=== PATIENT | female | born 1945 | race Caucasian/White ===

== ENCOUNTER → 2021-01-18 14:03 | Outpatient (BNVA) | payer MEDICARE, SELFPAY | PROVIDERS: PCP Registered Nurse; Visit Provider Registered Nurse | DX: E11.9 Type 2 diabetes mellitus without complications (principal); E78.5 Hyperlipidemia, unspecified; I10 Essential (primary) hypertension; N39.0 Urinary tract infection, site not specified | CPT/HCPCS: 80053; 80061; 81000; 83036; 85025; 87077; 87086; 87184 ==

== ENCOUNTER → 2021-01-26 10:03 | Outpatient (BNVA) | payer MEDICARE, SELFPAY | PROVIDERS: PCP Registered Nurse; Referring Provider Registered Nurse; Visit Provider Anesthesiology Pain Medicine | DX: G89.29 Other chronic pain (principal); M47.816 Spondylosis without myelopathy or radiculopathy, lumbar region; M51.16 Intervertebral disc disorders with radiculopathy, lumbar region; E11.40 Type 2 diabetes mellitus with diabetic neuropathy, unspecified; Z98.890 Other specified postprocedural states; Z79.891 Long term (current) use of opiate analgesic; Z79.4 Long term (current) use of insulin | CPT/HCPCS: 99204 ==

== ENCOUNTER → 2021-02-03 15:17 | Outpatient (BNVA) | payer MEDICARE, SELFPAY | PROVIDERS: PCP Registered Nurse; Visit Provider Registered Nurse | DX: E11.9 Type 2 diabetes mellitus without complications (principal); Z79.4 Long term (current) use of insulin | CPT/HCPCS: 36416; 82962 ==

== ENCOUNTER 2021-02-09 | Outpatient (CLI) | payer MEDICARE, SELFPAY | END 2021-02-09 00:01 | disposition home or self-care (01) | LOC: RADSHAW 10-11 08:55 | PROVIDERS: PCP Registered Nurse; Visit Provider Anesthesiology Pain Medicine | DX: I48.20 Chronic atrial fibrillation, unspecified (principal) | CPT/HCPCS: 85610 ==

== ENCOUNTER → 2021-02-22 11:43 | Outpatient (BNVA) | payer MEDICARE, SELFPAY | PROVIDERS: PCP Registered Nurse; Visit Provider Registered Nurse | DX: R60.0 Localized edema (principal); I10 Essential (primary) hypertension | CPT/HCPCS: 80053; 83880; 85025 ==

== ENCOUNTER → 2021-02-23 10:37 | Outpatient (BNVA) | payer MEDICARE, SELFPAY | PROVIDERS: PCP Registered Nurse; Visit Provider Anesthesiology Pain Medicine | DX: G89.29 Other chronic pain (principal); M47.816 Spondylosis without myelopathy or radiculopathy, lumbar region; M51.16 Intervertebral disc disorders with radiculopathy, lumbar region; E11.40 Type 2 diabetes mellitus with diabetic neuropathy, unspecified; M79.604 Pain in right leg; M79.605 Pain in left leg; Z98.890 Other specified postprocedural states; Z79.891 Long term (current) use of opiate analgesic; Z87.891 Personal history of nicotine dependence; Z79.4 Long term (current) use of insulin | CPT/HCPCS: 99215 ==

== ENCOUNTER 2021-02-23 12:45 | Outpatient (CLI) | payer MEDICARE, SELFPAY ==
--- NOTE | 2021-02-23 12:50 | XR_ITS ---
WS: [id number] LUMBAR SPINE TECHNIQUE: 5 views of the lumbar spine CLINICAL INFORMATION: M47.816 - Spondylosis without myelopathy or radiculopathy... COMPARISON: None. FINDINGS: Lumbar curve convex left. Advanced spondylitic changes lumbar spine. Osteopenia. Disc space narrowing worse at L2-3 L3-L4 L4-5 and L5-S1. Anterior hypertrophic changes in the lumbar spine. Aor tic calcification. Moderate facet arthropathy in the lower lumbar spine. No acute appearing compressi on fractures. Degenerative endplate-type sclerosis at L3-4. No instability on flexion-extension. Post operative changes in the left abdomen. XR/XR lumbar spine min 4V [id number] IMPRESSION: 1. No instability on flexion-extension. 2. Lumbar curve convex left with advanced spondylitic changes. 3. Advanced disc space narrowing throughout the lumbar spine worse at L2-3 L3- 4 L4-5 and L5-S1 with vacuum disc phenomenon. 4. No acute compression fractures.
== END 2021-02-23 12:46 | disposition home or self-care (01) ==
PROVIDERS: PCP Registered Nurse; Visit Provider Anesthesiology Pain Medicine
DX: M47.816 Spondylosis without myelopathy or radiculopathy, lumbar region (principal); G89.29 Other chronic pain; M51.16 Intervertebral disc disorders with radiculopathy, lumbar region; E11.40 Type 2 diabetes mellitus with diabetic neuropathy, unspecified; M79.604 Pain in right leg; M79.605 Pain in left leg; Z98.890 Other specified postprocedural states; Z79.891 Long term (current) use of opiate analgesic; Z87.891 Personal history of nicotine dependence; Z79.4 Long term (current) use of insulin
CPT/HCPCS: 72110; 99215

== ENCOUNTER → 2021-03-21 09:20 | Outpatient (BNVA) | payer MEDICARE, SELFPAY | PROVIDERS: PCP Registered Nurse; Visit Provider Registered Nurse | DX: E87.6 Hypokalemia (principal); R60.0 Localized edema; E11.9 Type 2 diabetes mellitus without complications; Z79.4 Long term (current) use of insulin | CPT/HCPCS: 80048 ==

== ENCOUNTER → 2021-03-23 11:05 | Outpatient (BNVA) | payer MEDICARE, SELFPAY | PROVIDERS: PCP Registered Nurse; Visit Provider Anesthesiology Pain Medicine | DX: G89.29 Other chronic pain (principal); M51.16 Intervertebral disc disorders with radiculopathy, lumbar region; M47.816 Spondylosis without myelopathy or radiculopathy, lumbar region; M79.604 Pain in right leg; M79.605 Pain in left leg; Z98.890 Other specified postprocedural states; E11.40 Type 2 diabetes mellitus with diabetic neuropathy, unspecified; Z79.891 Long term (current) use of opiate analgesic; Z87.891 Personal history of nicotine dependence; Z79.4 Long term (current) use of insulin | CPT/HCPCS: 99214 ==

== ENCOUNTER → 2021-05-24 00:01 | Outpatient (BNVA) | payer MEDICARE, SELFPAY | PROVIDERS: PCP Registered Nurse; Visit Provider Registered Nurse | DX: E11.9 Type 2 diabetes mellitus without complications (principal); J44.9 Chronic obstructive pulmonary disease, unspecified; Z79.4 Long term (current) use of insulin; R60.0 Localized edema; I11.0 Hypertensive heart disease with heart failure; I50.9 Heart failure, unspecified; J01.40 Acute pansinusitis, unspecified | CPT/HCPCS: 80053; 83036; 83880; 85025 ==

== ENCOUNTER → 2021-05-25 09:54 | Outpatient (BNVA) | payer MEDICARE, SELFPAY | PROVIDERS: PCP Registered Nurse; Visit Provider Anesthesiology Pain Medicine | DX: G89.29 Other chronic pain (principal); M51.16 Intervertebral disc disorders with radiculopathy, lumbar region; M47.816 Spondylosis without myelopathy or radiculopathy, lumbar region; E11.40 Type 2 diabetes mellitus with diabetic neuropathy, unspecified; Z98.890 Other specified postprocedural states; Z87.891 Personal history of nicotine dependence; Z79.891 Long term (current) use of opiate analgesic | CPT/HCPCS: 99214 ==

== ENCOUNTER → 2021-06-15 13:23 | Outpatient (BNVA) | payer MEDICARE, SELFPAY | PROVIDERS: PCP Registered Nurse; Visit Provider Anesthesiology Pain Medicine | DX: G89.29 Other chronic pain (principal); M54.16 Radiculopathy, lumbar region; Z79.891 Long term (current) use of opiate analgesic | CPT/HCPCS: 36416; 64483; 64484; 82962; J1100; J3490 ==

== ENCOUNTER → 2021-07-04 11:21 | Outpatient (BNVA) | payer MEDICARE, SELFPAY | PROVIDERS: PCP Registered Nurse; Visit Provider Anesthesiology Pain Medicine | DX: G89.29 Other chronic pain (principal); M51.16 Intervertebral disc disorders with radiculopathy, lumbar region; M47.816 Spondylosis without myelopathy or radiculopathy, lumbar region; E11.40 Type 2 diabetes mellitus with diabetic neuropathy, unspecified; Z98.890 Other specified postprocedural states; Z79.891 Long term (current) use of opiate analgesic; Z79.4 Long term (current) use of insulin; Z87.891 Personal history of nicotine dependence | CPT/HCPCS: 99214 ==

== ENCOUNTER 2021-07-05 18:38 | Inpatient (IN) | payer MEDICARE, SELFPAY ==
[2021-07-05] VITALS (7 sets, daily range): BP systolic 145–156; BP diastolic 62–90; PULSE 63–78; RESP 16–17; TEMP 36.8; O2SAT 94–98; BMI 32.1
--- NOTE | 2021-07-05 19:02 | CTR_ITS ---
PROCEDURE INFORMATION: Exam: CT Lumbar Spine Without Contrast Exam date and time: 07/05/2021 7:16 PM Age: 75 years old Clinical indication: Injury or trauma; Fall; Blunt trauma (contusions or hematomas); Prior surgery TECHNIQUE: Imaging protocol: Computed tomography images of the lumbar spine without contrast. Radiation optimization: All CT scans at this facility use at least one of these dose optimization techniques: automated exposure control; mA and/or kV adjustment per patient size (includes targeted exams where dose is matched to clinical indication); or iterative reconstruction. COMPARISON: CR XR lumbar spine min 4V [id number] 02/23/2021 1:07 PM RADIATION DOSE METRICS: Total DLP (mGy-cm): 2331.97 FINDINGS: Vertebrae: No acute fracture. Normal alignment. The lumbar spine demonstrates marked discogenic and apophyseal joint degenerative changes at multiple levels. Straightening of natural lordosis. Kidneys and ureters: Combination of simple and non simple bilateral renal cortical lesions which could represent cysts of variable density, however incomplete characterization without contrast. Vasculature: Scattered atherosclerosis. No aneurysm. Large focal calcified plaque of the left common iliac artery origin with severe stenosis of the artery greater than 90%. Soft tissues: Unremarkable. CT/CT lumbar spine wo con* [id number] IMPRESSION: 1. Negative for acute lumbar spine fracture. 2. Multiple bilateral renal cortical lesions of variable density. Some lesions are non simple in appearance. Recommend follow-up outpatient renal ultrasound for surveillance. COMMENTS: Consistent with the [employer]'s Incidental Findings Committee white paper (J Am Jack Radiol 2018): Any incidental renal lesion less than 1 cm or classified as too small to characterize, or any incidental cystic renal lesion characterized as simple-appearing, is likely benign. No follow-up imaging is recommended for these lesions per consensus recommendations based on imaging criteria.
--- NOTE | 2021-07-05 19:30 | XRR_ITS ---
PROCEDURE INFORMATION: Exam: XR Right Knee Exam date and time: 07/05/2021 6:52 PM Age: 75 years old Clinical indication: Injury or trauma; Fall; Blunt trauma; Knee; Right TECHNIQUE: Imaging protocol: XR Right knee. Views: 3 views. COMPARISON: No relevant prior studies available. FINDINGS: Bones/joints: Negative for acute fracture. Unremarkable joint space alignment. Small joint effusion. Marginal osteophytes in each compartment. Moderate severity diffuse joint space narrowing. Soft tissues: Normal. XR/XR knee RT 3V* [id number] IMPRESSION: Negative for acute fracture.
--- NOTE | 2021-07-05 19:30 | XRR_ITS ---
PROCEDURE INFORMATION: Exam: XR Left Ankle Exam date and time: 07/05/2021 6:45 PM Age: 75 years old Clinical indication: Injury or trauma; Fall; Blunt trauma; Ankle; Left TECHNIQUE: Imaging protocol: XR Left ankle. Views: 3 or more views. COMPARISON: No relevant prior studies available. FINDINGS: Bones/joints: Mildly displaced fracture lucency of the distal fibula epiphysis. Ankle mortise alignment is unremarkable. Bones are generally demineralized. Osteophytes between tarsal bones. Insertional enthesophyte on the plantar surface of the calcaneus. Soft tissues: Diffuse soft tissue swelling. XR/XR ankle LT min 3V* [id number] IMPRESSION: Small acute fracture of the distal fibula epiphysis.
--- NOTE | 2021-07-05 19:30 | XRR_ITS ---
PROCEDURE INFORMATION: Exam: XR Right Ankle Exam date and time: 07/05/2021 6:54 PM Age: 75 years old Clinical indication: Injury or trauma; Fall; Blunt trauma; Ankle; Right TECHNIQUE: Imaging protocol: XR Right ankle. Views: 3 or more views. COMPARISON: CR (LOW EXM, ) 07/05/2021 6:52 PM FINDINGS: Bones/joints: Bones are demineralized. Moderately displaced medial malleolus fracture of the distal tibia. Ankle mortise alignment is unremarkable. Tibiofibular syndesmotic alignment is unremarkable. Osteophytes between tarsal bones apparent on the dorsal side of the midfoot. Difficult to confidently exclude posterior malleolus fracture of distal tibia as well. Subtle oblique lucency crossing distal fibula diaphysis; fracture cannot be excluded. Insertional enthesophyte of plantar calcaneus. Soft tissues: Diffuse soft tissue swelling. Vasculature: Diffuse atherosclerosis. XR/XR ankle RT min 3V* [id number] IMPRESSION: Definite acute fracture in the medial malleolus of the tibia. Posterior malleolus fracture of tibia and distal fibula diaphyseal fracture cannot be excluded. Recommend CT scan correlation.
--- NOTE | 2021-07-05 19:30 | XRR_ITS ---
PROCEDURE INFORMATION: Exam: XR Left Knee Exam date and time: 07/05/2021 6:47 PM Age: 75 years old Clinical indication: Injury or trauma; Fall; Blunt trauma; Knee; Left TECHNIQUE: Imaging protocol: XR Left knee. Views: 3 views. COMPARISON: CR (LOW EXM, ) 07/05/2021 6:45 PM FINDINGS: Bones/joints: Negative for acute fracture. Unremarkable joint space alignment. Negative for joint effusion. Osteophytes at the margins of each compartment. Mild to moderate severity joint space narrowing. Calcifications of the menisci. Soft tissues: Normal. XR/XR knee LT 3V* [id number] IMPRESSION: No acute abnormality.
--- NOTE | 2021-07-05 19:30 | XRR_ITS ---
PROCEDURE INFORMATION: Exam: XR Pelvis Exam date and time: 07/05/2021 6:50 PM Age: 75 years old Clinical indication: Injury or trauma; Fall; Blunt trauma (contusions or hematomas); Bilateral; Pelvic region TECHNIQUE: Imaging protocol: XR pelvis. Views: 1 or 2 view. COMPARISON: CR XR lumbar spine min 4V [id number] 02/23/2021 1:07 PM FINDINGS: Bones/joints: Joint space narrowing of the hips. Marginal osteophytes of acetabular roofs. No fractures. Unremarkable osseous alignment. Soft tissues: Unremarkable. XR/XR pelvis 1-2V* [id number] IMPRESSION: Negative pelvis. No acute fracture.
[2021-07-05 19:52] LABS: Basophils # 0.1 10^3/uL (0.0-0.1); Basophils % 1.1 %; Eosinophils # 0.2 10^3/uL (0.0-0.8); Eosinophils % 2.7 %; Hematocrit 38.7 % (37.0-47.0); Hemoglobin 12.4 g/dL (11.5-15.3); Lymphocytes # 1.2 10^3/uL (0.8-4.8); Lymphocytes % 19.3 %; Mean Corpuscular Hemoglobin 28.8 pg (28.0-34.0); Mean Platelet Volume 10.3 fL (7.4-10.4); Monocytes # 0.9 10^3/uL (0.2-0.9); Monocytes % 13.7 %; Neutrophils # 3.95 10^3/uL (1.8-7.7); Nucleated Red Blood Cells % 0 %; Platelet Count 204 10^3/cmm (130-400); Red Cell Distribution Width 14.1 % (12.1-15.1); White Blood Count 6.3 10^3/uL (4.0-10.0)
[2021-07-05 20:06] LABS: INR 1.17 (0.8-1.2)
[2021-07-05] MEDS: ondansetron 2 mg/ML SDV 2 mL 4 MG IVP ×2 (20:07→22:02)
[2021-07-05] MEDS: morphine 4 mg/mL SDV 1 mL IVP ×2 (20:07→22:02)
--- NOTE | 2021-07-05 20:23 | ED_ITS ---
HPI - Fall General: Chief Complaint: Fall Stated Complaint: BILAT KNEE & ANKLE PAIN POST FALL, DIZZY Time Seen by Provider: 07/05/21 18:54 Source: patient and EMS Mode of arrival: EMS Limitations: no limitations History of Present Illness: 75-year-old female who states that she tripped and fell backwards twisting both of her ankles and knees when she fell. She has bilateral knee and ankle pain. She states pain her ankles are 8 out of 10. She does have chronic back pain does have pain currently but it feels like her chronic back pain denies any her head denies any other injuries. Associated symptoms-after fall: Denies abdominal pain, chest pain, headache(s) or neck pain Review of Systems Const: Denies: fever(s), chills, body aches or change in appetite Eyes: Denies: blurry vision or eye discomfort ENMT: Denies: throat pain or dental pain Card: Denies: chest pain Resp: Denies: dyspnea GI: Denies: abdominal pain, nausea, vomiting or diarrhea : Denies: dysuria Musc: Reports: extremity pain; Denies: neck pain or back pain Skin/Breast: Denies: rash Neuro: Denies: headache(s) Psych: Denies: depression Quique/Lymph: Denies: easy bruising All/Imm: Denies: urticaria PFSH ED PFSH: Medical History Afib Anxiety Asthma Chronic lower back pain COPD (chronic obstructive pulmonary disease) Diabetes type 2, controlled Diabetic neuropathy GERD (gastroesophageal reflux disease) Heart failure History of foot drop Hyperlipidemia Surgical History History of back surgery History of hysterectomy History of tubal ligation Family History Father Hypertension Cancer Diabetes Social History Smoking and tobacco status: former smoker Alcohol intake: never Adopted: No Caregiver/support person: No Lives independently: No Household members: family service: No Current occupational status: retired and disabled History of recent travel: No Current gender identity: Female Physical Exam Const: COMMON NORMALS: no acute distress, patient oriented x3 and healthy appearing HENMT: COMMON NORMALS: normocephalic and atraumatic HEAD & SCALP: normoc ephalic and atraumatic Eye: COMMON NORMALS: Equal, round and reactive pupils present and EOMs intact bilaterally PUPIL: Yes Equal, round and reactive pupils present Neck/C-Spine: COMMON NORMALS: full ROM and supple Chest: COMMONS NORMALS: normal inspection of the chest and normal palpation of entire chest wall Resp: COMMON NORMALS: normal respiratory effort, No retractions, No use of accessory muscles and clear to auscultation bilaterally AUSCULTATION: clear to auscultation bilaterally Cardio: COMMON NORMALS: regular rate, regular rhythm and No murmurs present (Cardio) RATE: regular rate RHYTHM: regular rhythm GI: COMMON NORMALS: Normal to inspection, nondistended, normoactive bowel sounds present, Soft to palpation, non-tender and no masses PALPATION: Yes Soft to palpation Extremity: COMMON NORMALS: full ROM NARRATIVE EXTREMITY EXAM: Tenderness to bilateral ankles slight tenderness to the bilateral knees distal pulses intact Neuro: COMMON NORMALS: patient oriented x3, moves all extremities and no focal motor deficits Psych: COMMON NORMALS: mental status grossly normal, Normal thought process present and cooperative THOUGHT PROCESS: Normal thought process present Skin: COMMON NORMALS: no rashes or lesions noted and no wounds GENERAL SKIN EXAM: no rashes or lesions noted Course Vital Signs: Vital signs: Vital Signs Temperature 98.2 F 07/05/21 18:48 Pulse Rate 78 07/05/21 21:44 Respiratory Rate 17 07/05/21 22:02 Blood Pressure 156/90 07/05/21 21:44 Pulse Oximetry 96 07/05/21 22:02 MDM - Fall Medical Decision Making Patient presents here with bilateral ankle fractures from a fall. She does live at home does not have anyone that can help take care of her at this time will admit as she is not good to be able to ambulate and spoke to the hospitalist along with orthopedics. Lab Data : 07/05/21 19:40 07/05/21 19:40 Radiology Impressions Lumbar Spine CT 07/05/21 19:02 IMPRESSION: 1. Negative for acute lumbar spine fracture. 2. Multiple bilateral renal cortical lesions of variable density. Some lesions are non simple in appearance. Recommend follow-up outpatient renal ultrasound for surveillance. COMMENTS: Consistent with the [employer]'s Incidental Findings Committee white paper (J Am Jack Radiol 2018): Any incidental renal lesion less than 1 cm or classified as too small to characterize, or any incidental cystic renal lesion characterized as simple-appearing, is likely benign. No follow-up imaging is recommended for these lesions per consensus recommendations based on imaging criteria. Ankle X-Ray 07/05/21 19:30 IMPRESSION: Definite acute fracture in the medial malleolus of the tibia. Posterior malleolus fracture of tibia and distal fibula diaphyseal fracture cannot be excluded. Recommend CT scan correlation. Knee X-Ray 07/05/21 19:30 IMPRESSION: Negative for acute fracture. Pelvis X-Ray 07/05/21 19:30 IMPRESSION: Negative pelvis. No acute fracture. Laboratory Results WBC 6.3 10^3/uL (4.0-10.0) 07/05/21 19:40 RBC 4.30 10^6/uL (4.1-5.3) 07/05/21 19:40 Hgb 12.4 g/dL (11.5-15.3) 07/05/21 19:40 Hct 38.7 % (37.0-47.0) 07/05/21 19:40 MCV 90.0 fl (81-99) 07/05/21 19:40 MCH 28.8 pg (28.0-34.0) 07/05/21 19:40 MCHC 32.0 g/dL (30.0-36.0) 07/05/21 19:40 RDW 14.1 % (12.1-15.1) 07/05/21 19:40 Plt Count 204 10^3/cmm (130-400) 07/05/21 19:40 MPV 10.3 fL (7.4-10.4) 07/05/21 19:40 Neut % (Auto) 63.0 % 07/05/21 19:40 Lymph % (Auto) 19.3 % 07/05/21 19:40 [place] % (Auto) 13.7 % 07/05/21 19:40 Eos % (Auto) 2.7 % 07/05/21 19:40 Baso % (Auto) 1.1 % 07/05/21 19:40 Neut # (Auto) 3.95 10^3/uL (1.8-7.7) 07/05/21 19:40 Lymph # (Auto) 1.2 10^3/uL (0.8-4.8) 07/05/21 19:40 [place] # (Auto) 0.9 10^3/uL (0.2-0.9) 07/05/21 19:40 Eos # (Auto) 0.2 10^3/uL (0.0-0.8) 07/05/21 19:40 Baso # (Auto) 0.1 10^3/uL (0.0-0.1) 07/05/21 19:40 Nucleated RBC % (auto) 0 % 07/05/21 19:40 Nucleated RBCs # 0.0 /100WBC 07/05/21 19:40 PT 15.30 SECONDS (12.1-14.9) H 07/05/21 19:40 INR 1.17 (0.8-1.2) 07/05/21 19:40 Sodium 141 mmol/L (136-145) 07/05/21 19:40 Potassium 4.2 mmol/L (3.5-5.1) 07/05/21 19:40 Chloride 103 mmol/L (98-107) 07/05/21 19:40 Carbon Dioxide 28 mmol/L (22-29) 07/05/21 19:40 Anion Gap 14.2 (5-19) 07/05/21 19:40 BUN 17 mg/dL (8-23) 07/05/21 19:40 Creatinine 1.0 mg/dL (0.5-0.9) H 07/05/21 19:40 GFR Calculation Not Reportable 07/05/21 19:40 Glucose 118 mg/dL (65-115) H 07/05/21 19:40 Calculated Osmolality 295 mOsm/kg (285-295) 07/05/21 19:40 Calcium 9.6 mg/dL (8.5-10.5) 07/05/21 19:40 Total Bilirubin 0.3 mg/dL (0.15-1.2) 07/05/21 19:40 AST 21 U/L (0-32) 07/05/21 19:40 ALT 18 U/L (0-33) 07/05/21 19:40 Alkaline Phosphatase 52 IU/L (35-105) 07/05/21 19:40 Total Protein 7.1 g/dL (6.6-8.7) 07/05/21 19:40 Albumin 4.1 g/dL (3.5-5.2) 07/05/21 19:40 Globulin 3.0 g/dL (1.3-4.6) 07/05/21 19:40 Discharge Plan Discharge Patient Disposition: Admitted As Inpatient Clinical Impression: Fall Qualifiers: Encounter type: initial encounter Qualified Code(s): W19.XXXA - Unspecified fall, initial encounter Bilateral ankle fractures Qualifiers: Encounter type: initial encounter Fracture type: closed Qualified Code(s): S82.891A - Other fracture of right lower leg, initial encounter for closed fracture Condition: Stable Coding Level of Care Code ED Mail [employer] Markup Clerk for Vera Kwok
[2021-07-05 20:40] LABS: Alanine Aminotransferase 18 U/L (0-33); Albumin Level 4.1 g/dL (3.5-5.2); Alkaline Phosphatase 52 IU/L (35-105); Anion Gap 14.2 (5-19); Aspartate Amino Transferase 21 U/L (0-32); Blood Urea Nitrogen 17 mg/dL (8-23); Calcium 9.6 mg/dL (8.5-10.5); Carbon Dioxide 28 mmol/L (22-29); Chloride 103 mmol/L (98-107); Glucose 118 mg/dL (65-115); Osmolality Calculated 295 mOsm/kg (285-295); Potassium 4.2 mmol/L (3.5-5.1); Sodium 141 mmol/L (136-145); Total Bilirubin 0.3 mg/dL (0.15-1.2); Total Protein 7.1 g/dL (6.6-8.7)
[2021-07-05 20:43] LABS: Creatinine Clr Calc Pharmacy 55.8553
--- NOTE | 2021-07-05 21:42 | CTR_ITS ---
PROCEDURE INFORMATION: Exam: CT Right Lower Extremity Without Contrast, Ankle Exam date and time: 07/05/2021 10:44 PM Age: 75 years old Clinical indication: Injury or trauma; Fracture, traumatic; Displaced; Ankle; Right; Not specified; Patient HX: Fall this evening. Fracture seen on xray. ; Additional info: FX TECHNIQUE: Imaging protocol: CT of the Right lower extremity without contrast was performed. Exam focused on the ankle. Radiation optimization: All CT scans at this facility use at least one of these dose optimization techniques: automated exposure control; mA and/or kV adjustment per patient size (includes targeted exams where dose is matched to clinical indication); or iterative reconstruction. COMPARISON: CR (LOW EXM, ) 07/05/2021 6:54 PM RADIATION DOSE METRICS: Total DLP (mGy-cm): 121.72 FINDINGS: Bones/joints: Displaced horizontal medial malleolar fracture. Displaced intra-articular fracture involving the lateral aspect of the tibial plafond. Hairline nondisplaced intra-articular fracture of the posterior malleolus. Dorsal talonavicular osteophyte formation consistent with primary osteoarthritis. Calcaneal spur. Soft tissues: Normal. Vasculature: Moderate calcified peripheral vascular disease. CT/CT ankle RT wo con* [id number] IMPRESSION: 1. Displaced horizontal medial malleolar fracture. 2. Displaced intra-articular fracture involving the lateral aspect of the tibial plafond. 3. Hairline nondisplaced intra-articular fracture of the posterior malleolus.
--- NOTE | 2021-07-05 22:30 | CTR_ITS ---
PROCEDURE INFORMATION: Exam: CT Head Without Contrast Exam date and time: 07/05/2021 10:40 PM Age: 75 years old Clinical indication: Patient HX: Dizziness post fall; Additional info: Dizzyness TECHNIQUE: Imaging protocol: Computed tomography of the head without contrast. Radiation optimization: All CT scans at this facility use at least one of these dose optimization techniques: automated exposure control; mA and/or kV adjustment per patient size (includes targeted exams where dose is matched to clinical indication); or iterative reconstruction. COMPARISON: No relevant prior studies available. RADIATION DOSE METRICS: Total DLP (mGy-cm): 901.76 FINDINGS: Brain: There is moderate cerebral atrophy. Negative for acute intracranial hemorrhage. No midline shift of brain. [place] matter and white matter interfaces are preserved. Right thalamus lacunar infarct which is age indeterminate without comparison images. No mass effect on the brain. Cerebral ventricles: No ventriculomegaly. Paranasal sinuses: Left maxillary sinus mucosal thickening without air-fluid levels. Mastoid air cells: Visualized mastoid air cells are well aerated. Bones/joints: Unremarkable. No acute fracture. Soft tissues: Unremarkable. CT/CT head wo con* [id number] IMPRESSION: Negative for acute intracranial hemorrhage.
--- NOTE | 2021-07-05 22:45 | ECG_ITS ---
[facility] Test Date: 2021-07-05 Pat Name: Ana M New Department: Room: Gender: Female Feeder Loader: : [id number] Requested By: Vimal Rosenthal Order Number: [id number] Danial MD: Reyna Quiros M.D. Measurements Intervals [place] Rate: 68 P: 81 [place]: 166 QRS: 43 QRSD: 88 T: 48 QT: 401 QTc: 429 Interpretive Statements SINUS RHYTHM WITH OCCASIONAL SUPRAVENTRICULAR PREMATURE COMPLEXES LOW QRS VOLTAGE IN EXTREMITY LEADS [QRS DEFLECTION < 0.5 mV IN LIMB LEADS] No previous ECG available for comparison Electronically Signed On 07-06-2021 19:15:55 CDT by Reyna Quiros M.D. [email or web address]
--- NOTE | 2021-07-05 22:52 | PM.HP ---
Providers/Chief Complaint Primary Care Provider: ALPHONSO Oliver Chief Complaint: BILAT KNEE & ANKLE PAIN POST FALL, DIZZY History of Present Illness Ana M New is a 75 year old female with a past medical history of asthma, history of chronic lower back pain status post laminectomy, history of bilateral extremity edema, history of diastolic CHF, history of hyperlipidemia, history of insulin-dependent type 2 diabetes mellitus, COPD, atrial fibrillation on Eliquis, who presents [facility] for dizziness and fall. Patient tells me that she lives at home, by herself, her family checks up on her regularly, she ambulates with a wheeled walker, this evening she was pushing her wheeled walker, when she suddenly felt dizzy, when she put accidentally pushed her wheel walker too far, it hit the cabinetry about the back, resulting in her falling slightly backwards with her ankles ending up under her back, she was on the floor for about an hour before she could call her son. She was unable to bear weight, had bilateral ankle pain. At [facility] she is found to have bilateral ankle fracture, right more significant requiring surgical intervention, Dr. Castanon has been consulted, hospitalist team was called for admission as she cannot ambulate, she lives at home by herself. Review of Systems Const: Denies: fever(s), chills, fatigue or malaise Eyes: Denies: change in vision ENMT: Denies: nasal congestion Resp: Denies: dyspnea, productive cough, non-productive cough or wheezing GI: Denies: abdominal pain, nausea, vomiting, hematemesis, diarrhea, constipation, hematochezia or melena : Denies: flank pain, dysuria or urinary frequency Musc: Denies: neck pain or back pain Skin/Breast: Denies: rash Neuro: Denies: headache(s), dizziness or vertigo Endo: Denies: polyuria or polydipsia Medications/Allergies Home Medications Medication Instructions Recorded Confirmed Last Taken Type B-complex with vitamin C (Super B 1 tab PO DAILY 01/18/21 07/04/21 Unknown History Complex-Vitamin C) calcium carbonate 600 mg calcium 600 mg PO DAILY 01/18/21 07/04/21 Unknown History (1,500 mg) tablet (Calcium) cholecalciferol (vitamin D3) 125 125 mcg PO DAILY 01/18/21 07/04/21 Unknown History mcg (5,000 unit) capsule diclofenac sodium 1 % topical gel 2 g TOPICAL QID 01/18/21 07/04/21 Unknown History (Arthritis Pain (diclofenac)) insulin human U-100 NPH-regulr See Rx Instructions SUBCUT BID PRN 01/18/21 07/04/21 Unknown History 70-30 mix 100 unit/mL subcutaneous susp (Humulin 70/30 U-100 Insulin) melatonin 5 mg capsule mg PO 01/18/21 07/04/21 Unknown History multivitamin 1 tab PO DAILY 01/18/21 07/04/21 Unknown History psyllium 1 packet PO DAILY ea 01/18/21 07/04/21 Unknown History albuterol sulfate 90 mcg/actuation 2 puff INHALATION Q6H PRN #8.5 g 03/03/21 07/04/21 Unknown Rx aerosol inhaler (ProAir HFA) flash glucose scanning reader #6 ea 03/03/21 07/04/21 Unknown Rx (Transphorm Ericka 14 Day Tiona) fluticasone furoate 100 1 inh INHALATION DAILY #60 ea 03/03/21 07/04/21 Unknown Rx mcg-vilanterol 25 mcg/dose inhalation powder (Breo Ellipta) furosemide 20 mg tablet 10 mg PO QAM 90 Days #45 tab 03/21/21 07/04/21 Unknown Rx amlodipine 10 mg tablet See Rx Instructions .ROUTE 05/02/21 07/04/21 Unknown Rx .COMPLEX #90 tab buspirone 7.5 mg tablet See Rx Instructions .ROUTE 05/02/21 07/04/21 Unknown Rx .COMPLEX #180 tab carvedilol 25 mg tablet See Rx Instructions .ROUTE 05/02/21 07/04/21 Unknown Rx .COMPLEX #180 tab fluoxetine 40 mg capsule See Rx Instructions .ROUTE 05/02/21 07/04/21 Unknown Rx .COMPLEX #90 cap gabapentin 600 mg tablet See Rx Instructions .ROUTE 05/02/21 07/04/21 Unknown Rx .COMPLEX #270 tab hydroxyzine HCl 25 mg tablet See Rx Instructions .ROUTE 05/02/21 07/04/21 Unknown Rx .COMPLEX #180 tab montelukast 10 mg tablet See Rx Instructions .ROUTE 05/02/21 07/04/21 Unknown Rx .COMPLEX #90 tab omeprazole 20 mg capsule,delayed See Rx Instructions .ROUTE 05/02/21 07/04/21 Unknown Rx release .COMPLEX #90 cap rosuvastatin 20 mg tablet See Rx Instructions .ROUTE 05/02/21 07/04/21 Unknown Rx .COMPLEX #90 tab apixaban 5 mg tablet (Eliquis) See Rx Instructions .ROUTE 05/06/21 07/04/21 Unknown Rx .COMPLEX #180 tab flash glucose sensor (FreeStyle See Rx Instructions .ROUTE 05/06/21 07/04/21 Unknown Rx Ericka 14 Day Sensor) .COMPLEX #6 each potassium chloride 20 mEq/15 mL See Rx Instructions .ROUTE 05/06/21 07/04/21 Unknown Rx oral liquid .COMPLEX #473 ml hydrocodone 7.5 mg-acetaminophen 1 tab PO BID PRN 30 Days #60 tab 07/04/21 07/04/21 Unknown Rx 325 mg tablet Allergies Allergy/AdvReac Type Severity Reaction Status Date / Time adhesive tape Allergy Unknown Verified 07/05/21 18:47 amoxicillin Allergy Unknown Verified 07/05/21 18:47 bee venom protein (honey bee) Allergy Unknown Verified 07/05/21 18:47 clavulanic acid Allergy Unknown Verified 07/05/21 18:47 [From Augmentin] maltitol Allergy Unknown Verified 07/05/21 18:47 metformin Allergy Unknown Verified 07/05/21 18:47 ranitidine Allergy Unknown Verified 07/05/21 18:47 sorbitol Allergy Unknown Verified 07/05/21 18:47 PFSH Acute PFSH: Medical History Afib Anxiety Asthma Chronic lower back pain COPD (chronic obstructive pulmonary disease) Diabetes type 2, controlled Diabetic neuropathy GERD (gastroesophageal reflux disease) Heart failure History of foot drop Hyperlipidemia Surgical History History of back surgery History of hysterectomy History of tubal ligation Family History Father Hypertension Cancer Diabetes Social History Smoking and tobacco status: former smoker Alcohol intake: never Adopted: No Caregiver/support person: No Lives independently: No Household members: family service: No Current occupational status: retired and disabled History of recent travel: No Current gender identity: Female Vitals/I&O/Wt Last Vital Signs Temp 98.2 F 07/05/21 18:48 Pulse 78 07/05/21 21:44 Resp 17 07/05/21 22:02 BP 156/90 07/05/21 21:44 Pulse Ox 96 07/05/21 22:02 Weight last 48 hrs Weight 90.265 kg Physical Exam Const: COMMON NORMALS: no acute distress and patient oriented x3 HENMT: COMMON NORMALS: normocephalic HEAD & SCALP: normocephalic Resp: COMMON NORMALS: normal respiratory effort, No retractions, No use of accessory muscles and clear to auscultation bilaterally AUSCULTATION: clear to auscultation bilaterally Cardio: COMMON NORMALS: no JVD, regular rate, regular rhythm, S1 normal heart sound present and S2 normal heart sound present RATE: regular rate RHYTHM: regular rhythm HEART SOUNDS: S1 normal heart sound present and S2 normal heart sound present GI: COMMON NORMALS: Normal to inspection, nondistended, normoactive bowel sounds present, Soft to palpation, non-tender, No hepatosplenomegaly present, no masses and no bruits PALPATION: Yes Soft to palpation and Yes No hepatosplenomegaly present Extremity: NARRATIVE EXTREMITY EXAM: Bilateral extremities casted Neuro: COMMON NORMALS: patient oriented x3 Psych: COMMON NORMALS: mental status grossly normal Data : 07/05/21 19:40 07/05/21 19:40 A&P Assessment and plan (1) Bilateral ankle fractures: Status: Acute Qualifiers: Encounter type: initial encounter Fracture type: closed Qualified Code(s): S82.891A - Other fracture of right lower leg, initial encounter for closed fracture; S82.892A - Other fracture of left lower leg, initial encounter for closed fracture (2) Fall: Status: Acute Qualifiers: Encounter type: initial encounter Qualified Code(s): W19.XXXA - Unspecified fall, initial encounter (3) Pre-syncope: Status: Acute Plan Bilateral ankle fractures -Right ankle Definite acute fracture in the medial malleolus of the tibia. Posterior malleolus fracture of tibia and distal fibula diaphyseal fracture cannot be excluded. -CT ordered -Left ankle Small acute fracture of the distal fibula epiphysis. -Currently casted -Orthopedic service on consult -N.p.o. midnight -Possible surgical intervention tomorrow morning -Pain control morphine -Anticoagulation, Eliquis currently on hold for possible surgical invention Presyncopal symptoms -Serial EKGs, serial troponins, telemetry monitoring -Urine analysis -CT head -Carotid artery ultrasound -Cardiac echo Type 2 diabetes mellitus, low-dose sliding scale Atrial fibrillation, continue Coreg, Eliquis currently on hold Asthma, not in exacerbation COPD not in exacerbation Hyperlipidemia Diastolic CHF, not in exacerbation Attestations Medical Necessity Statement*: Patient requires hospitalization, inpatient, greater than 2 midnights, for presyncope, bilateral ankle fractures Coding Level of Care Code Acute 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
--- NOTE | 2021-07-05 23:01 | USR_ITS ---
PROCEDURE INFORMATION: Exam: US Duplex Bilateral Extracranial Arteries, Carotid Arteries Exam date and time: 07/05/2021 11:14 PM Age: 75 years old Clinical indication: Dizziness; Additional info: Dizzynes TECHNIQUE: Imaging protocol: Real-time Duplex ultrasound scan of the bilateral carotid and vertebral arteries combining ramirez scale, color Doppler and spectral waveform analysis. Bilateral exam. Exam focused on the carotid arteries. COMPARISON: CT head wo con* [id number] 07/05/2021 10:40 PM FINDINGS: Right common carotid artery: Unremarkable. No occlusion or stenosis. Waveforms are normal. Right internal carotid artery: Spectral waveform broadening. No significant peak systolic velocity elevation. Echogenic plaques in the bifurcation. Right ICA/CCA ratio: Within normal limits. Right external carotid artery: No significant stenosis in the origin. Right vertebral artery: Unremarkable. Antegrade flow. Left common carotid artery: Unremarkable. No occlusion or stenosis. Waveforms are normal. Left internal carotid artery: Echogenic plaques throughout the artery. Diffusely elevated peak systolic velocities measuring up to 293 seconds distally. Spectral broadening throughout the artery. Left ICA/CCA ratio: Elevated. Left external carotid artery: No significant stenosis in the origin. Left vertebral artery: Unremarkable. Antegrade flow. US/CV carotid duplex BI* [id number] IMPRESSION: 1. Moderate severity left internal carotid artery stenosis estimated 50-69%, although difficult to characterize secondary to tortuosity. 2. At least mild severity stenosis of proximal right internal carotid artery approaching 50%. 3. Recommend CTA neck correlation. REFERENCES: SRU CRITERIA. The degree of internal carotid artery stenosis is based on criteria defined by the Society of Radiologists in Ultrasound (SRU). Normal is no stenosis. Mild is less than 50% stenosis. Moderate is 50-69% stenosis. Severe is greater than 69% stenosis to near occlusion. Near occlusion is a markedly narrowed lumen. Total occlusion is no detectable patent lumen.
[2021-07-05 23:20] LABS: Troponin(5th) Baseline 20 ng/L (0-10)
[2021-07-05 23:29] LABS: Thyroid Stimulating Hormone 2.08 uIU/mL (0.27-4.20)
[2021-07-06] VITALS (12 sets, daily range): BP systolic 122–144; BP diastolic 41–74; PULSE 68–96; RESP 12–18; TEMP 36.7–37.6; O2SAT 91–98
[2021-07-06 00:12] LABS: Add Urine Microscopic? NO; Charge for UA Resulting for Rev
[2021-07-06] MEDS: acetaminophen 325 mg Tablet 650 MG PO (00:15)
[2021-07-06 00:28] LABS: Urine Appearance Clear (CLEAR); Urine Color Yellow (Yellow); pH Urine 7 (5-7)
[2021-07-06 00:29] LABS: Bilirubin Urine Neg (Negative); Blood Urine Neg (Negative); Glucose Urine UA Norm (Normal); Ketones Urine Negative (Negative); Leukocyte Esterase Urine Negative (Negative); Nitrate Urine Negative (Negative); Protein Urine Neg (Negative); Specific Gravity, Urine 1.005 (1.005-1.030); Urobilinogen Urine Norm (Negative)
[2021-07-06 01:23] LABS: Troponin 5 2HR 19.27 ng/L (0-10)
[2021-07-06 01:27] LABS: Troponin 5 2HR Delta -0.73 ABS# (0-10)
--- NOTE | 2021-07-06 02:47 | USCV_ITS ---
Transthoracic Echo Ana M New Age: 75 Gender: F : 1945 Exam Date: 07/06/2021 02:50 Ordering Phys: Vimal Rosenthal MD Technologist: LIZBETH Exam Location: [facility] Indication: Dizziness BP: / HR: 71 Rhythm: Sinus Technical Quality: Adequate MEASUREMENTS (Male / Female) Normal Values 2D ECHO LV Diastolic Diameter PLAX 3.0 cm 4.2 - 5.9 / 3.9 - 5.3 cm LV Systolic Diameter PLAX 2.0 cm IVS Diastolic Thickness 1.1 cm 0.6 - 1.0 / 0.6 - 0.9 cm IVS Systolic Thickness 1.2 cm LVPW Diastolic Thickness 1.3 cm 0.6 - 1.0 / 0.6 - 0.9 cm LVPW Systolic Thickness 2.0 cm LVOT Diameter 1.6 cm LV Ejection Fraction 2D Teich 61.1 % LV Ejection Fraction MOD 2C 81.2 % LV Ejection Fraction 2C AL 82.0 % LA Diameter 3.9 cm LA Width 4.2 cm LA Height 6.3 cm RA Width 3.2 cm RA Height 4.5 cm Aorta at Sinotubular Diameter 1.8 cm M-MODE Aortic Annulus Diameter 2.4 cm LA Ao Ratio MM 1.5 MV E Point Septal Separation 2.4 cm DOPPLER AV Peak Velocity 147.5 cm/s LVOT Peak Velocity 88.0 cm/s AV Area Cont Eq vti 1.1 cm squared AV Area Cont Eq pk 1.2 cm squared MV Peak Velocity 136.0 cm/s MV Area PHT 3.0 cm squared Mitral E to A Ratio 1.6 MV E' Velocity 73.0 cm/s Mitral E to MV E' Ratio 14.5 Mitral E to LV E' Lateral Ratio 11.4 Mitral E to LV E' Septal Ratio 20.0 TR Peak Velocity 93.5 cm/s TR Peak Gradient 3.5 mmHg TR Mean Velocity 58.3 cm/s TR Mean Gradient 1.9 mmHg TR Velocity Time Integral 18.8 cm Right Atrial Pressure 5.0 mmHg Pulmonary Artery Systolic Pressu 8.5 mmHg PV Peak Velocity 161.0 cm/s RV Acceleration Time 0.1 s RV Ejection Time 0.4 s RV AcT/ET 0.3 FINDINGS Left Ventricle Normal left ventricular size and systolic function, EF 83 %. No regional wall motion abnormalities. Grade III/IV diastolic dysfunction (restrictive filling pattern), severely elevated filling pressures. Right Ventricle The right ventricle is normal in size and function. Right Atrium The right atrium is normal in size. Left Atrium Mildly increased left atrial size. Mitral Valve Thickened mitral valve. Mild mitral annular calcification. Trace to mild mitral valve regurgitation. Aortic Valve Thickened aortic valve. Tricuspid Valve No gross abnormalities noted Pulmonic Valve Pulmonic valve not well visualized. Pericardium Normal pericardium without effusion. Aorta Normal ascending aorta dimension. CONCLUSIONS Normal left ventricular size and systolic function, EF 83 %. No regional wall motion abnormalities. Grade III/IV diastolic dysfunction (restrictive filling pattern), severely elevated filling pressures. Mildly increased left atrial size. Thickened mitral valve. Mild mitral annular calcification. Trace to mild mitral valve regurgitation. Thickened aortic valve. There is no pericardial effusion. There are no intracardiac masses. No previous study is available for comparison. Dr Reyna Quiros MD [facility] (Electronically Signed) Final Date: 06 July 2021 13:57 S
[2021-07-06 05:06] LABS: Basophils # 0.1 10^3/uL (0.0-0.1); Basophils % 0.6 %; Eosinophils # 0.1 10^3/uL (0.0-0.8); Eosinophils % 1.5 %; Hematocrit 34.5 % (37.0-47.0); Hemoglobin 10.8 g/dL (11.5-15.3); Lymphocytes % 13.4 %; Mean Corpuscular HGB Conc 31.3 g/dL (30.0-36.0); Mean Corpuscular Hemoglobin 28.6 pg (28.0-34.0); Mean Corpuscular Volume 91.5 fl (81-99); Mean Platelet Volume 10.8 fL (7.4-10.4); Neutrophils # 5.51 10^3/uL (1.8-7.7); Neutrophils % 71.2 %; Nucleated Red Blood Cells % 0 %; Platelet Count 186 10^3/cmm (130-400); Red Blood Count 3.77 10^6/uL (4.1-5.3); Red Cell Distribution Width 14.1 % (12.1-15.1); White Blood Count 7.8 10^3/uL (4.0-10.0)
[2021-07-06 05:28] LABS: Alanine Aminotransferase 15 U/L (0-33); Albumin Level 3.8 g/dL (3.5-5.2); Alkaline Phosphatase 45 IU/L (35-105); Blood Urea Nitrogen 18 mg/dL (8-23); Calcium 8.9 mg/dL (8.5-10.5); Carbon Dioxide 25 mmol/L (22-29); Chloride 104 mmol/L (98-107); Globulin 1.7 g/dL (1.3-4.6); Glucose 177 mg/dL (65-115); Osmolality Calculated 296 mOsm/kg (285-295); Phosphorus 4.9 mg/dL (2.5-4.5); Sodium 140 mmol/L (136-145); Total Bilirubin 0.5 mg/dL (0.15-1.2); Total Protein 5.5 g/dL (6.6-8.7); Troponin 5 6HR 19.84 ng/L (0-10)
[2021-07-06 05:39] LABS: Anion Gap 15.3 (5-19); Aspartate Amino Transferase 16 U/L (0-32); Creatinine Clr Calc Pharmacy 55.8553; Potassium 4.3 mmol/L (3.5-5.1)
[2021-07-06 05:40] LABS: Troponin 5 6HR Delta -0.16 ng/L (0-12)
[2021-07-06] MEDS: morphine 4 mg/mL SDV 1 mL 2 MG IVP ×2 (08:10→12:17)
--- NOTE | 2021-07-06 08:19 | PC.OT ---
OT EVALUATION ORDERS RECEIVED. WILL HOLD EVALUATION PENDING ORTHOPEDIC CONSULT AND SURGERY.
--- NOTE | 2021-07-06 10:33 | CT_ITS ---
WS: [id number] CTA HEAD AND NECK TECHNIQUE: Contrast enhanced CTA of the head and neck with coronal and sagittal reformatted images an d maximum intensity projection (MIP) images. NASCET criteria utilized. CLINICAL INFORMATION: syncope COMPARISON: Ultrasound July 05, 2021 DLP: 2516.[address] scans at [facility] use at least one of these dose optimization techniques: automated e xposure control; mA and/or kV adjustment per patient size (includes targeted exams where dose is matc hed to clinical indication); or iterative reconstruction. FINDINGS: Chronic lacunar infarct RIGHT thalamus unchanged from recent head CT. Mild mucosal thickening in the paranasal sinuses. Mastoid air cells are well aerated. RIGHT: RIGHT common carotid artery is patent. Moderate atheromatous plaque RIGHT carotid bulb extendi ng into the ICA. RIGHT ICA stenosis measures 64%. RIGHT ICA is patent to the skull base. LEFT: LEFT common carotid artery is patent. Moderate atheromatous plaque LEFT carotid bulb extending into the ICA. LEFT ICA stenosis measures 76%. INTRACRANIAL CTA: Codominant and patent vertebral arteries bilaterally. Basilar artery is patent. Normal vascularity to the MULTIPLE DRILL OPERATOR territory bilaterally. Both ICAs are patent at the skull base. Moderate cavernous carotid calcification. Normal vascularity to the EVA and MCA territories bilaterally. No evidence of high-grade proximal stenosis or aneurysm. Moderate spondylitic changes cervical spine. Straightening of normal cervical lordosis. Moderate central canal stenosis C4-C5 C5-C6 due to disc osteophyte complexes. Lung apices are well erated. Spiculated nodule in the LEFT upper lobe adjacent to aortic arch measuring 8 mm. Aortic arch calcification. Normal parapharyngeal fat. Normal posterior nasopharynx. CT/CT angio headneck* [id number] IMPRESSION: 1. Spiculated nodule LEFT upper lobe measuring 8 mm adjacent to the aortic arc h. This has a suspicious appearance and recommend further evaluation with dedic ated chest CT and/or PET CT. 2. Unchanged chronic lacunar infarct in the RIGHT thalamus. 3. Unremarkable intracranial CTA. No flow-limiting stenosis. 4. RIGHT ICA stenosis measures 64% 5. LEFT ICA stenosis measures 76% 6. Codominant and patent vertebral arteries bilaterally.
--- NOTE | 2021-07-06 11:06 | PC.NURSE ---
Report to Erika on MS; POC is to go to M/S after sx.
--- NOTE | 2021-07-06 11:27 | PC.NURSE ---
IV infiltrated in CT lab & they are unable to establish new line. This nurse started 20g to LFA x2 sticks. Pt jacinta well.
[2021-07-06] MEDS: iodixanol 320 mg/mL 100mL Btl IV (11:40)
[2021-07-06] MEDS: ondansetron 2 mg/ML SDV 2 mL 4 MG IVP (12:17)
--- NOTE | 2021-07-06 13:06 | PM.PN ---
Subjective Subjective: Admitted overnight. Patient complaining of pain in the ankles. States she has been having dizziness on and off for last 2 weeks. Has remained hemodynamically stable and afebrile. N.p.o. overnight for a possible OR today. Vitals/I&O/Wt Last Vital Signs Temp 98.1 F 07/06/21 11:46 Pulse 96 07/06/21 11:46 Resp 17 07/06/21 12:17 BP 136/41 07/06/21 11:46 Pulse Ox 95 07/06/21 11:46 Weight last 48 hrs Weight 90.265 kg Physical Exam Const: COMMON NORMALS: no acute distress and patient oriented x3 HENMT: COMMON NORMALS: normocephalic HEAD & SCALP: normocephalic Neck/C-Spine: COMMON NORMALS: no JVD Resp: COMMON NORMALS: normal respiratory effort, No retractions, No use of accessory muscles and clear to auscultation bilaterally AUSCULTATION: clear to auscultation bilaterally Cardio: COMMON NORMALS: no JVD, regular rate, regular rhythm, S1 normal heart sound present and S2 normal heart sound present RATE: regular rate RHYTHM: regular rhythm HEART SOUNDS: S1 normal heart sound present and S2 normal heart sound present GI: COMMON NORMALS: Normal to inspection, nondistended, normoactive bowel sounds present, Soft to palpation, non-tender, No hepatosplenomegaly present, no masses and no bruits PALPATION: Yes Soft to palpation and Yes No hepatosplenomegaly present Extremity: NARRATIVE EXTREMITY EXAM: Bilateral extremities casted Neuro: COMMON NORMALS: patient oriented x3 Psych: COMMON NORMALS: mental status grossly normal Data : 07/06/21 04:56 07/06/21 04:56 A&P Assessment and plan (1) Bilateral ankle fractures: Status: Acute Qualifiers: Encounter type: initial encounter Fracture type: closed Qualified Code(s): S82.891A - Other fracture of right lower leg, initial encounter for closed fracture; S82.892A - Other fracture of left lower leg, initial encounter for closed fracture (2) Fall: Status: Acute Qualifiers: Encounter type: initial encounter Qualified Code(s): W19.XXXA - Unspecified fall, initial encounter (3) Pre-syncope: Status: Acute (4) Afib: Status: Acute Qualifiers: Atrial fibrillation type: unspecified chronic Qualified Code(s): I48.20 - Chronic atrial fibrillation, unspecified (5) Diabetes type 2, controlled: Status: Acute Qualifiers: Diabetes mellitus long-term insulin use: with long-term use Diabetes mellitus complication status: without complication Qualified Code(s): E11.9 - Type 2 diabetes mellitus without complications; Z79.4 - halfway (current) use of insulin Plan Bilateral ankle fractures: Appreciate orthopedic recommendations. Care discussed with Dr. Arauz in detail. Plan for OR. Physical therapy as per orthopedic team. [place] 5 every 8 hours as needed for pain along with Tylenol tramadol 50 every 6 hours. Check flu and Covid swab. Syncope/presyncope: Telemetry. Carotid ultrasound appreciated. CTA head and neck, echocardiogram. MRI head to rule out posterior circulation stroke. Check troponin cycle. Orthostatic check. A1c recently 6.9. Check lipid panel. Atorvastatin 80 mg daily, aspirin 81 mg daily. For now hold off on Eliquis given possible need of OR. Decrease dose of BuSpar to 7.5 mg daily. Increase gabapentin to 300 3 times daily. Type 2 diabetes mellitus: Insulin sliding scale at low-dose protocol before meals and at bedtime. Atrial fibrillation with rapid ventricular response: Rate controlled. Continue with Coreg. Holding of Eliquis for possible OR. Hypertension: Goal blood pressure less than 140/90 mmHg with mean over 65. Continue with home dose of Coreg and amlodipine. Orthostatic as above. COPD: Not in exacerbation. DNR/DNI. Cardiac carb consistent diet. N.p.o. after midnight for possible OR tomorrow. Heparin 5000 every 12 for DVT prophylaxis for now. 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
--- NOTE | 2021-07-06 13:35 | ECG_ITS ---
[facility] Test Date: 2021-07-06 Pat Name: Ana M New Department: Room: 276 Gender: Female Head Librarian: : 1945 Requested By: Lexx Thompson Order Number: [id number] Danial MD: Reyna Quiros M.D. Measurements Intervals [place] Rate: 66 P: 80 NM: 161 QRS: 20 QRSD: 85 T: 49 QT: 441 QTc: 463 Interpretive Statements SINUS RHYTHM Compared to ECG 07/05/2021 23:41:24 No significant changes Electronically Signed On 07-06-2021 19:18:45 CDT by Reyna Quiros M.D. [id number]
[2021-07-06] MEDS: sodium chloride 0.9% 1,000 ML 75 ML IV (13:58)
[2021-07-06] MEDS: gabapentin 300 mg Capsule PO ×2 (13:58→20:41)
[2021-07-06] MEDS: heparin 5,000 unit/mL INJ 1 mL 5000 UNIT SUBCUT (13:58)
[2021-07-06] MEDS: aspirin 81 mg EC Tablet PO (13:58)
[2021-07-06 14:38] LABS: Troponin(5th) Baseline 20 ng/L (0-10)
--- NOTE | 2021-07-06 15:03 | P.CONIM_ITS ---
Providers/Reason For Consult Consulting Physician/Specialty*: Cara Arauz MD Reason for Consult*: Bilateral ankle fractures, bilateral knee pain Requesting Physician: Tenisha Quick MD Attending Physician: Lexx Thompson MD Primary Care Provider: ALPHONSO Oliver History of Present Illness History of Present Illness Ana M eNw is a 75 year old female who was in her usual state of health when she became dizzy at home. She does relate that she has had multiple dizzy episodes over the past 2-1/2 weeks. She states that she was using a walker, and she fell forward hit a cabinet and flew backwards falling onto the floor. She states that she hurt her lumbosacral spine which has been evaluated while in the emergency department. She also had diagnosis of bilateral ankle fractures. The right is a trimalleolar minimally displaced fracture in the left is a distal fibula fracture. Additionally, she complained of knee pain. This also was bilateral. Review of Systems Const: Denies: fever(s), chills, body aches, change in appetite, fatigue or malaise Eyes: Denies: change in vision, blurry vision or eye discomfort ENMT: Denies: throat pain, dental pain or nasal congestion Card: Denies: chest pain Resp: Denies: dyspnea, productive cough, non-productive cough or wheezing GI: Denies: abdominal pain, nausea, vomiting, hematemesis, diarrhea, constipation, hematochezia or melena : Denies: flank pain, dysuria or urinary frequency Musc: Reports: extremity pain; Denies: neck pain or back pain Skin/Breast: Denies: rash Neuro: Denies: headache(s), dizziness or vertigo Psych: Denies: depression Endo: Denies: polyuria or polydipsia Quique/Lymph: Denies: easy bruising All/Imm: Denies: urticaria Medications/Allergies Home Medications Medication Instructions Recorded Confirmed Last Taken Type B-complex with vitamin C (Super B 1 tab PO DAILY 01/18/21 07/06/21 Unknown History Complex-Vitamin C) calcium carbonate 600 mg calcium 600 mg PO DAILY 01/18/21 07/06/21 Unknown History (1,500 mg) tablet (Calcium) cholecalciferol (vitamin D3) 125 125 mcg PO QAM 01/18/21 07/06/21 Unknown History mcg (5,000 unit) capsule diclofenac sodium 1 % topical gel 2 g TOPICAL QID PRN 01/18/21 07/06/21 Unknown History (Arthritis Pain (diclofenac)) insulin human U-100 NPH-regulr 10 - 20 unit SUBCUT BID 01/18/21 07/06/21 Unknown History 70-30 mix 100 unit/mL subcutaneous susp (Humulin 70/30 U-100 Insulin) multivitamin 1 tab PO QAM 01/18/21 07/06/21 Unknown History albuterol sulfate 90 mcg/actuation 2 puff INHALATION Q6H PRN #8.5 g 03/03/21 Unknown Rx aerosol inhaler (ProAir HFA) flash glucose scanning reader #6 ea 03/03/21 07/06/21 Unknown Rx (FreeStyle Ericka 14 Day [place]) fluticasone furoate 100 1 inh INHALATION DAILY #60 ea 03/03/21 07/06/21 Unknown Rx mcg-vilanterol 25 mcg/dose inhalation powder (Breo Ellipta) furosemide 20 mg tablet 10 mg PO QAM 90 Days #45 tab 03/21/21 07/06/21 Unknown Rx flash glucose sensor (FreeStyle See Rx Instructions .ROUTE 05/06/21 07/06/21 Unknown Rx Ericka 14 Day Sensor) .COMPLEX #6 each hydrocodone 7.5 mg-acetaminophen 1 tab PO BID PRN 30 Days #60 tab 07/04/21 07/06/21 Unknown Rx 325 mg tablet acetaminophen 500 mg tablet 500 mg PO Q6H PRN 07/06/21 07/06/21 Unknown History amlodipine 10 mg tablet 10 mg PO QAM 07/06/21 07/06/21 Unknown History apixaban 5 mg tablet (Eliquis) 5 mg PO BID 07/06/21 07/06/21 Unknown History buspirone 7.5 mg tablet 7.5 mg PO BID 07/06/21 07/06/21 Unknown History carvedilol 25 mg tablet 25 mg PO BID 07/06/21 07/06/21 Unknown History fiber 1 cap PO BEDTIME 07/06/21 07/06/21 Unknown History fluoxetine 40 mg capsule 40 mg PO QAM 07/06/21 07/06/21 Unknown History gabapentin 600 mg tablet 600 mg PO TID 07/06/21 07/06/21 Unknown History hydroxyzine HCl 25 mg tablet 25 mg PO BID 07/06/21 07/06/21 Unknown History insulin regular human 100 unit/mL 4 - 10 unit SUBCUT DAILY PRN 07/06/21 07/06/21 Unknown History injection solution (Humulin R Regular U-100 Insulin) melatonin 10 mg tablet 10 mg PO BEDTIME 07/06/21 07/06/21 Unknown History montelukast 10 mg tablet 10 mg PO BEDTIME 07/06/21 07/06/21 Unknown History omeprazole 20 mg capsule,delayed 20 mg PO QAM 07/06/21 07/06/21 Unknown History release potassium chloride 20 mEq/15 mL 20 meq PO QAM 07/06/21 07/06/21 Unknown History oral liquid rosuvastatin 20 mg tablet 20 mg PO BEDTIME 07/06/21 07/06/21 Unknown History Allergies Allergy/AdvReac Type Severity Reaction Status Date / Time adhesive tape Allergy Unknown Verified 07/05/21 18:47 amoxicillin Allergy Unknown Verified 07/05/21 18:47 bee venom protein (honey bee) Allergy Unknown Verified 07/05/21 18:47 clavulanic acid Allergy Unknown Verified 07/05/21 18:47 [From Augmentin] maltitol Allergy Unknown Verified 07/05/21 18:47 metformin Allergy Unknown Verified 07/05/21 18:47 ranitidine Allergy Unknown Verified 07/05/21 18:47 sorbitol Allergy Unknown Verified 07/05/21 18:47 Current Medications Generic Name Dose Route Start Last Admin Trade Name Freq PRN Reason Stop Dose Admin Acetaminophen 650 mg 07/05/21 23:01 07/06/21 00:15 Acetaminophen 325 Mg Tablet PO 650 mg Q6H PRN Administration Mild/Mod Pain Or Temp >/= 101 Amlodipine Besylate 10 mg 07/06/21 09:00 07/06/21 12:15 Amlodipine 10 Mg Tablet PO Not Given DAILY JOSE Aspirin 81 mg 07/06/21 13:35 07/06/21 13:58 Aspirin 81 Mg Ec Tablet PO 81 mg DAILY JOSE Administration Atorvastatin Calcium 80 mg 07/06/21 09:00 07/06/21 12:15 Atorvastatin 40 Mg Tablet PO Not Given DAILY JOSE Carvedilol 25 mg 07/06/21 08:00 07/06/21 12:14 Carvedilol 25 Mg Tablet PO Not Given BIDWM JOSE Fluoxetine HCl 40 mg 07/06/21 09:00 07/06/21 12:16 Fluoxetine 20 Mg Capsule PO Not Given DAILY JOSE Gabapentin 300 mg 07/06/21 15:00 07/06/21 13:58 Gabapentin 300 Mg Capsule PO 300 mg TID JOSE Administration Heparin Sodium (Porcine) 5,000 unit 07/06/21 14:00 07/06/21 13:58 Heparin 5,000 Unit/Ml Inj 1 Ml SUBCUT 5,000 unit Q12H JOSE Administration Sodium Chloride 1,000 mls @ 75 mls/hr 07/06/21 13:30 07/06/21 13:58 Sodium Chloride 0.9% IV 75 mls/hr .[id number] JOSE Administration Insulin Human Lispro 0 unit 07/06/21 08:00 07/06/21 12:25 Insulin Lispro 100 Unit/1 Ml SUBCUT Not Given TIDWM [facility] Protocol Morphine Sulfate 2 mg 07/05/21 23:01 07/06/21 12:17 Morphine 4 Mg/Ml Sdv 1 Ml IVP 2 mg Q4H PRN Administration SEVERE PAIN Ondansetron HCl 4 mg 07/05/21 23:01 07/06/21 12:17 Ondansetron 2 Mg/Ml Sdv 2 Ml IVP 4 mg Q8H PRN Administration vomiting, or N/V if npo Vitamin D 5,000 unit 07/06/21 09:00 07/06/21 12:16 Cholecalciferol (Vitamin D3) 5,000 Unit Tablet PO Not Given DAILY JOSE PFSH Acute PFSH: Medical History (Updated 07/06/21 @ 18:18 by Cara Arauz MD) Afib Anxiety Asthma Chronic lower back pain COPD (chronic obstructive pulmonary disease) COVID-19 Diabetes type 2, controlled Diabetic neuropathy Facet arthropathy, lumbar GERD (gastroesophageal reflux disease) Heart failure History of foot drop Hyperlipidemia Lumbar disc disease with radiculopathy Surgical History (Updated 07/06/21 @ 13:33 by Lexx Thompson MD) History of back surgery History of hysterectomy History of laminectomy History of tubal ligation Family History Father Hypertension Cancer Diabetes Social History Smoking and tobacco status: former smoker Alcohol intake: never Adopted: No Caregiver/support person: No Lives independently: No Household members: family service: No Current occupational status: retired and disabled History of recent travel: No Current gender identity: Female Dietary Habits: Current diet type/program: regular Caffeine: Yes Vitals/I&O/Wt Last Vital Signs Temp 98.1 F 07/06/21 11:46 Pulse 96 07/06/21 11:46 Resp 17 07/06/21 12:17 BP 136/41 07/06/21 11:46 Pulse Ox 95 07/06/21 11:46 Weight last 48 hrs Weight 199 lb Physical Exam Const: COMMON NORMALS: no acute distress, average body habitus, patient oriented x3 and alert GENERAL APPEARANCE: cooperative and comfortable ORIENTATION/CONSCIOUSNESS: Yes awake HENMT: COMMON NORMALS: normocephalic and atraumatic HEAD & SCALP: normocephalic and atraumatic Eye: GENERAL EYE: appearance normal, both eyes and all related structures Chest: COMMONS NORMALS: normal inspection of the chest Resp: COMMON NORMALS: normal respiratory effort EFFORT & INSPECTION: Yes able to speak in complete sentences and Yes symmetric chest movement Back/Pelvis: OTHER: Complains of lower back pain which has been evaluated in the emergency department. Extremity: RIGHT LOWER EXTREMITY: Yes knee joint (No significant ecchymosis or swelling.) and Yes foot & digits (The ankle joint is in a splint. She is able to move her toes.) Right ankle: Yes inspection (Splint is in place.) and Yes neurovascular exam (Sensation intact.) LEFT LOWER EXTREMITY: Yes knee joint (No significant swelling or ecchymosis) and Yes ankle joint (Splint is in place.) Left ankle: Yes inspection (Sensation intact in the toes.), Yes ROM (Di ble to evaluate.) and Yes neurovascular exam (Able to move toes.) Neuro: COMMON NORMALS: patient oriented x3 SENSORIUM/ORIENTATION: Yes alert Psych: COMMON NORMALS: mental status grossly normal APPEARANCE: Yes grossly normal ATTITUDE: Yes calm and Yes engaged ATTENTION/CONCENTRATION: Yes attention grossly intact Skin: COMMON NORMALS: no rashes or lesions noted GENERAL SKIN EXAM: no rashes or lesions noted Data : 07/06/21 04:56 07/06/21 04:56 Xray Ortho: I personally reviewed and interpreted this imaging study as follows: My impression: 1) The patient's right ankle imaging is reviewed. There is a distal fibula fracture which is seen both on CT and on regular imaging. The CT is reviewed as well as 3 views of the ankle. There is a medial malleolar fracture with minimal displacement. There is also a posterior malleolar fracture which involves only a minute portion of the posterior malleolus of the right ankle. The fibula fracture involves the distal diaphysis and metaphyseal area. There is no displacement. CT demonstrates fractures as noted above. There is a horizontal fracture of the medial malleolus as well as the posterior malleolar fracture. There is an intra-articular fracture involving the lateral aspect of the tibial plafond, but this is quite small. Additionally, upon my review, there is a f racture of the distal fibula which is not mentioned in the initial read of the CT scan by the radiologist. I have subsequently reviewed the imaging with the radiologist today, and he agrees that there is a distal fibula fracture as noted. Therefore, the patient has a trimalleolar minimally displaced right ankle fracture. 2) Left ankle demonstrates an avulsion of the tip of the lateral malleolus. The mortise is intact. There is no other evidence of fracture or displacement. Findings are consistent with distal fibula fracture. 3,4) Bilateral knee images are reviewed. Each knee includes 3 views. These are nonweightbearing films. There is significant degenerative osteoarthritic change but no evidence of acute fracture or dislocation. A&P Assessment and plan (1) Closed trimalleolar fracture of right ankle: X-ray images include evidence of a trimalleolar ankle fracture on the right. There is minimal displacement and a very small posterior malleolar fracture. There is a transverse fracture of the medial malleolus with some displacement. There is also a fracture involving the distal fibula above the plafond. This is visualized on plain films and on CT scan. The patient will require an open reduction internal fixation of this fracture. Discussion is undertaken with the patient that she will require open reduction internal fixation and this is scheduled for her tomorrow. Status: Acute (2) Closed fracture of left distal fibula: Patient will be fitted with a fracture boot and allowed to be weightbearing as tolerated on this fracture. This will be applied by physical therapy. Status: Acute (3) Primary osteoarthritis of knees, bilateral: Patient fell onto and has increased pain in her knees. There is evidence of significant degenerative osteoarthritic change within the knees but no evidence of acute fracture or dislocation. 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
--- NOTE | 2021-07-06 15:05 | P.CONIM_ITS ---
Providers/Reason For Consult Consulting Physician/Specialty*: Cara Arauz MD Reason for Consult*: Bilateral ankle fractures, bilateral knee pain Requesting Physician: Tenisha Quick MD Attending Physician: Lexx Thompson MD Primary Care Provider: ALPHONSO Oliver History of Present Illness History of Present Illness Ana M New is a 75 year old female who was in her usual state of health when she became dizzy at home. She does relate that she has had multiple dizzy episodes over the past 2-1/2 weeks. She states that she was using a walker, and she fell forward hit a cabinet and flew backwards falling onto the floor. She states that she hurt her lumbosacral spine which has been evaluated while in the emergency department. She also had diagnosis of bilateral ankle fractures. The right is a trimalleolar minimally displaced fracture in the left is a distal fibula fracture. Additionally, she complained of knee pain. This also was bilateral. Review of Systems Const: Denies: fever(s), chills, body aches, change in appetite, fatigue or malaise Eyes: Denies: change in vision, blurry vision or eye discomfort ENMT: Denies: throat pain, dental pain or nasal congestion Card: Denies: chest pain Resp: Denies: dyspnea, productive cough, non-productive cough or wheezing GI: Denies: abdominal pain, nausea, vomiting, hematemesis, diarrhea, constipation, hematochezia or melena : Denies: flank pain, dysuria or urinary frequency Musc: Reports: extremity pain; Denies: neck pain or back pain Skin/Breast: Denies: rash Neuro: Denies: headache(s), dizziness or vertigo Psych: Denies: depression Endo: Denies: polyuria or polydipsia Quique/Lymph: Denies: easy bruising All/Imm: Denies: urticaria Medications/Allergies Home Medications Medication Instructions Recorded Confirmed Last Taken Type B-complex with vitamin C (Super B 1 tab PO DAILY 01/18/21 07/06/21 Unknown History Complex-Vitamin C) calcium carbonate 600 mg calcium 600 mg PO DAILY 01/18/21 07/06/21 Unknown History (1,500 mg) tablet (Calcium) cholecalciferol (vitamin D3) 125 125 mcg PO QAM 01/18/21 07/06/21 Unknown History mcg (5,000 unit) capsule diclofenac sodium 1 % topical gel 2 g TOPICAL QID PRN 01/18/21 07/06/21 Unknown History (Arthritis Pain (diclofenac)) insulin human U-100 NPH-regulr 10 - 20 unit SUBCUT BID 01/18/21 07/06/21 Unknown History 70-30 mix 100 unit/mL subcutaneous susp (Humulin 70/30 U-100 Insulin) multivitamin 1 tab PO QAM 01/18/21 07/06/21 Unknown History albuterol sulfate 90 mcg/actuation 2 puff INHALATION Q6H PRN #8.5 g 03/03/21 07/06/21 Unknown Rx aerosol inhaler (ProAir HFA) flash glucose scanning reader #6 ea 03/03/21 07/06/21 Unknown Rx (FreeStyle Ericka 14 Day [place]) fluticasone furoate 100 1 inh INHALATION DAILY #60 ea 03/03/21 07/06/21 Unknown Rx mcg-vilanterol 25 mcg/dose inhalation powder (Breo Ellipta) furosemide 20 mg tablet 10 mg PO QAM 90 Days #45 tab 03/21/21 07/06/21 Unknown Rx flash glucose sensor (FreeStyle See Rx Instructions .ROUTE 05/06/21 07/06/21 Unknown Rx Ericka 14 Day Sensor) .COMPLEX #6 each hydrocodone 7.5 mg-acetaminophen 1 tab PO BID PRN 30 Days #60 tab 07/04/21 07/06/21 Unknown Rx 325 mg tablet acetaminophen 500 mg tablet 500 mg PO Q6H PRN 07/06/21 07/06/21 Unknown History amlodipine 10 mg tablet 10 mg PO QAM 07/06/21 07/06/21 Unknown History apixaban 5 mg tablet (Eliquis) 5 mg PO BID 07/06/21 07/06/21 Unknown History buspirone 7.5 mg tablet 7.5 mg PO BID 07/06/21 07/06/21 Unknown History carvedilol 25 mg tablet 25 mg PO BID 07/06/21 07/06/21 Unknown History fiber 1 cap PO BEDTIME 07/06/21 07/06/21 Unknown History fluoxetine 40 mg capsule 40 mg PO QAM 07/06/21 07/06/21 Unknown History gabapentin 600 mg tablet 600 mg PO TID 07/06/21 07/06/21 Unknown History hydroxyzine HCl 25 mg tablet 25 mg PO BID 07/06/21 07/06/21 Unknown History insulin regular human 100 unit/mL 4 - 10 unit SUBCUT DAILY PRN 07/06/21 07/06/21 Unknown History injection solution (Humulin R Regular U-100 Insulin) melatonin 10 mg tablet 10 mg PO BEDTIME 07/06/21 07/06/21 Unknown History montelukast 10 mg tablet 10 mg PO BEDTIME 07/06/21 07/06/21 Unknown History omeprazole 20 mg capsule,delayed 20 mg PO QAM 07/06/21 07/06/21 Unknown History release potassium chloride 20 mEq/15 mL 20 meq PO QAM 07/06/21 07/06/21 Unknown History oral liquid rosuvastatin 20 mg tablet 20 mg PO BEDTIME 07/06/21 07/06/21 Unknown History Allergies Allergy/AdvReac Type Severity Reaction Status Date / Time adhesive tape Allergy Unknown Verified 07/05/21 18:47 amoxicillin Allergy Unknown Verified 07/05/21 18:47 bee venom protein (honey bee) Allergy Unknown Verified 07/05/21 18:47 clavulanic acid Allergy Unknown Verified 07/05/21 18:47 [From Augmentin] maltitol Allergy Unknown Verified 07/05/21 18:47 metformin Allergy Unknown Verified 07/05/21 18:47 ranitidine Allergy Unknown Verified 07/05/21 18:47 sorbitol Allergy Unknown Verified 07/05/21 18:47 Current Medications Generic Name Dose Route Start Last Admin Trade Name Freq PRN Reason Stop Dose Admin Acetaminophen 650 mg 07/05/21 23:01 07/06/21 00:15 Acetaminophen 325 Mg Tablet PO 650 mg Q6H PRN Administration Mild/Mod Pain Or Temp >/= 101 Amlodipine Besylate 10 mg 07/06/21 09:00 07/07/21 08:18 Amlodipine 10 Mg Tablet PO 10 mg DAILY JOSE Administration Aspirin 81 mg 07/06/21 13:35 07/07/21 08:18 Aspirin 81 Mg Ec Tablet PO 81 mg DAILY JOSE Administration Atorvastatin Calcium 80 mg 07/06/21 09:00 07/07/21 08:18 Atorvastatin 40 Mg Tablet PO 80 mg DAILY JOSE Administration Buspirone HCl 7.5 mg 07/07/21 09:00 07/07/21 08:18 Buspirone 10 Mg Tablet PO 7.5 mg DAILY JOSE Administration Carvedilol 25 mg 07/06/21 08:00 07/07/21 08:25 Carvedilol 25 Mg Tablet PO 25 mg BIDWM JOSE Administration Fluoxetine HCl 40 mg 07/06/21 09:00 07/07/21 08:17 Fluoxetine 20 Mg Capsule PO 40 mg DAILY JOSE Administration Gabapentin 300 mg 07/06/21 15:00 07/07/21 08:18 Gabapentin 300 Mg Capsule PO 300 mg TID JOSE Administration Heparin Sodium (Porcine) 5,000 unit 07/06/21 14:00 07/07/21 02:29 Heparin 5,000 Unit/Ml Inj 1 Ml SUBCUT 5,000 unit Q12H JOSE Administration Hydroxyzine Pamoate 25 mg 07/06/21 18:00 07/07/21 08:18 Hydroxyzine 25 Mg Capsule PO 25 mg BID JOSE Administration Sodium Chloride 1,000 mls @ 75 mls/hr 07/06/21 13:30 07/07/21 02:30 Sodium Chloride 0.9% IV 75 mls/hr .[id number] JOSE Administration Insulin Human Lispro 0 unit 07/06/21 08:00 07/07/21 08:25 Insulin Lispro 100 Unit/1 Ml SUBCUT Not Given TIDWM [facility] Protocol Montelukast Sodium 10 mg 07/07/21 09:00 07/07/21 08:18 Montelukast Sodium 10 Mg Tablet PO 10 mg DAILY JOSE Administration Morphine Sulfate 2 mg 07/05/21 23:01 07/07/21 09:53 Morphine 4 Mg/Ml Sdv 1 Ml IVP 2 mg Q4H PRN Administration SEVERE PAIN Ondansetron HCl 4 mg 07/05/21 23:01 07/06/21 12:17 Ondansetron 2 Mg/Ml Sdv 2 Ml IVP 4 mg Q8H PRN Administration vomiting, or N/V if npo Pantoprazole Sodium 40 mg 07/07/21 09:00 07/07/21 08:[address] 40 Mg Tablet PO 40 mg DAILY JOSE Administration Vitamin D 5,000 unit 07/06/21 09:00 07/07/21 08:18 Cholecalciferol (Vitamin D3) 5,000 Unit Tablet PO 5,000 unit DAILY JOSE Administration PFSH Acute PFSH: Medical History Afib Anxiety Asthma Chronic lower back pain COPD (chronic obstructive pulmonary disease) COVID-19 Diabetes type 2, controlled Diabetic neuropathy Facet arthropathy, lumbar GERD (gastroesophageal reflux disease) Heart failure History of foot drop Hyperlipidemia Lumbar disc disease with radiculopathy Surgical History History of back surgery History of hysterectomy History of laminectomy History of tubal ligation Family History Father Hypertension Cancer Diabetes Social History Smoking and tobacco status: former smoker Alcohol intake: never Adopted: No Caregiver/support person: No Lives independently: No Household members: family service: No Current occupational status: retired and disabled History of recent travel: No Current gender identity: Female Dietary Habits: Current diet type/program: regular Caffeine: Yes Vitals/I&O/Wt Last Vital Signs Temp 98.8 F 07/07/21 15:27 Pulse 79 07/07/21 15:27 Resp 16 07/07/21 15:27 BP 109/61 07/07/21 15:27 Pulse Ox 92 07/07/21 15:27 07/07/21 07/07/21 07/07/21 06:59 14:59 22:59 Intake Total 940 / 990 350 / 350 50 / 400 Output Total 525 / 525 410 / 410 500 / 910 Balance 415 / 465 -60 / -60 -450 / -510 Weight last 48 hrs Weight 199 lb Physical Exam Const: COMMON NORMALS: no acute distress, average body habitus, patient oriented x3 and alert GENERAL APPEARANCE: cooperative and comfortable ORIENTATION/CONSCIOUSNESS: Yes awake HENMT: COMMON NORMALS: normocephalic and atraumatic HEAD & SCALP: normocephalic and atraumatic Eye: GENERAL EYE: appearance normal, both eyes and all related structures Chest: COMMONS NORMALS: normal inspection of the chest Resp: COMMON NORMALS: normal respiratory effort EFFORT & INSPECTION: Yes able to speak in complete sentences and Yes symmetric chest movement Back/Pelvis: OTHER: Complains of lower back pain which has been evaluated in the emergency department. Extremity: RIGHT LOWER EXTREMITY: Yes knee joint (No significant ecchymosis or swelling.) and Yes foot & digits (The ankle joint is in a splint. She is able to move her toes.) Right foot and digits: Yes inspection (Splint is in place.) and Yes neurovascular exam (Sensation intact.) LEFT LOWER EXTREMITY: Yes knee joint (No significant swelling or ecchymosis) and Yes ankle joint (Splint is in place.) Left ankle: Yes inspection (Sensation intact in the toes.), Yes ROM (Unable to evaluate) and Yes neurovascular exam (Able to move toes.) Neuro: COMMON NORMALS: patient oriented x3 SENSORIUM/ORIENTATION: Yes alert Psych: COMMON NORMALS: mental status grossly normal APPEARANCE: Yes grossly normal ATTITUDE: Yes calm and Yes engaged ATTENTION/CONCENTRATION: Yes attention grossly intact Skin: COMMON NORMALS: no rashes or lesions noted GENERAL SKIN EXAM: no rashes or lesions noted Data : 07/07/21 02:37 07/07/21 02:37 Xray Ortho: I personally reviewed and interpreted this imaging study as follows: My impression: 1) The patient's right ankle imaging is reviewed. There is a distal fibula fract ure which is seen both on CT and on regular imaging. The CT is reviewed as well as 3 views of the ankle. There is a medial malleolar fracture with minimal displacement. There is also a posterior malleolar fracture which involves only a minute portion of the posterior malleolus of the right ankle. The fibula fracture involves the distal diaphysis and metaphyseal area. There is no displacement. CT demonstrates fractures as noted above. There is a horizontal fracture of the medial malleolus as well as the posterior malleolar fracture. There is an intra-articular fracture involving the lateral aspect of the tibial plafond, but this is quite small. Additionally, upon my review, there is a f racture of the distal fibula which is not mentioned in the initial read of the CT scan by the radiologist. I have subsequently reviewed the imaging with the radiologist today, and he agrees that there is a distal fibula fracture as noted. Therefore, the patient has a trimalleolar minimally displaced right ankle fracture. 2) Left ankle demonstrates an avulsion of the tip of the lateral malleolus. The mortise is intact. There is no other evidence of fracture or displacement. Findings are consistent with distal fibula fracture. 3,4) Bilateral knee images are reviewed. Each knee includes 3 views. These are nonweightbearing films. There is significant degenerative osteoarthritic change but no evidence of acute fracture or dislocation. A&P Assessment and plan (1) Closed trimalleolar fracture of right ankle: X-ray images include evidence of a trimalleolar ankle fracture on the right. There is minimal displacement and a very small posterior malleolar fracture. There is a transverse fracture of the medial malleolus with some displacement. There is also a fracture involving the distal fibula above the plafond. This is visualized on plain films and on CT scan. The patient will require an open reduction internal fixation of this fracture. Discussion is undertaken with the patient that she will require open reduction internal fixation and this is scheduled for her tomorrow. Status: Acute (2) Closed fracture of left distal fibula: Patient will be fitted with a fracture boot and allowed to be weightbearing as tolerated on this fracture. This will be applied by physical therapy. Status: Acute (3) Primary osteoarthritis of knees, bilateral: Patient fell onto and has increased pain in her knees. There is evidence of significant degenerative osteoarthritic change within the knees but no evidence of acute fracture or dislocation. Status: Acute Consult Attestations Medical Necessity Statement: Inpatient for treatment of bilateral ankle fractures. 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
--- NOTE | 2021-07-06 15:35 | ECG_ITS ---
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 Measurements Intervals [place] Rate: 70 P: 87 RI: 153 QRS: 31 QRSD: 93 T: 68 QT: 418 QTc: 452 Interpretive Statements SINUS RHYTHM Compared to ECG 07/06/2021 13:03:09 No significant changes Electronically Signed On 07-06-2021 18:00:10 CDT by Randi Gray M.D. [id number]
[2021-07-06 16:44] LABS: Troponin 5 2HR 20.38 ng/L (0-10)
[2021-07-06 16:48] LABS: Troponin 5 2HR Delta 0.38 ABS# (0-10)
[2021-07-06] MEDS: carvedilol 25 mg Tablet PO (17:13)
[2021-07-06] MEDS: hyDROXYzine 25 mg Capsule PO (17:13)
[2021-07-06] MEDS: insulin lispro 100 unit/1 mL SUBCUT (18:00)
[2021-07-06 19:35] LABS: Glucose Point of Care 166 mg/dL (70-110)
--- NOTE | 2021-07-06 19:35 | ECG_ITS ---
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 Measurements Intervals [place] Rate: 78 P: 87 [place]: 164 QRS: 59 QRSD: 110 T: 69 QT: 415 QTc: 473 Interpretive Statements SINUS RHYTHM Compared to ECG 07/06/2021 17:51:43 No significant changes Electronically Signed On 07-07-2021 18:01:09 CDT by Alejandro Will M.D. [id number]
[2021-07-06 20:55] LABS: Troponin 5 6HR 22.01 ng/L (0-10)
[2021-07-06 20:56] LABS: Troponin 5 6HR Delta 2.01 ng/L (0-12)
[2021-07-06 21:19] LABS: Glucose Point of Care 196 mg/dL (70-110)
[2021-07-06 21:19] LABS: Glucose Point of Care 152 mg/dL (70-110)
[2021-07-07] VITALS (21 sets, daily range): BP systolic 96–164; BP diastolic 50–74; PULSE 67–84; RESP 14–18; TEMP 36.2–37.7; O2SAT 92–99
--- NOTE | 2021-07-07 | SCC_ITS ---
Procedure done: Open reduction internal fixation with plate fixation of distal fibula and cannulated screw fixation of medial malleolus 111.3 seconds of fluoroscopic guidance, for a cumulative dose of 2.69 mGy, was provided to Dr. Arauz by the radiology department. C-arm images of the LEFT ankle were saved for the patient's permanent record. [facility]
--- NOTE | 2021-07-07 | XR_ITS ---
WS: [id number] Left ankle, C-arm fluoroscopy, 07/08/2021 Clinical Data: ORIF trimalleolar FX in OR Comparison: Left ankle, 07/05/2021 Findings: Dr. Arauz placed a lateral fibular plate with screws and an oblique screw in the medial malleolus. XR/XR ankle LT min 3V* [id number] Impression: Internal fixation of left ankle fracture.
[2021-07-07] MEDS: heparin 5,000 unit/mL INJ 1 mL 5000 UNIT SUBCUT (02:29)
[2021-07-07] MEDS: sodium chloride 0.9% 1,000 ML 75 ML IV ×2 (02:30→21:05)
[2021-07-07 03:13] LABS: Basophils # 0.1 10^3/uL (0.0-0.1); Basophils % 1.1 %; Eosinophils # 0.2 10^3/uL (0.0-0.8); Eosinophils % 3.1 %; Hemoglobin 11.2 g/dL (11.5-15.3); Lymphocytes # 0.9 10^3/uL (0.8-4.8); Lymphocytes % 15.1 %; Mean Corpuscular HGB Conc 31.1 g/dL (30.0-36.0); Mean Corpuscular Hemoglobin 28.9 pg (28.0-34.0); Mean Platelet Volume 11.1 fL (7.4-10.4); Monocytes # 0.8 10^3/uL (0.2-0.9); Monocytes % 13.2 %; Neutrophils # 4.14 10^3/uL (1.8-7.7); Neutrophils % 67.3 %; Nucleated Red Blood Cells % 0 %; Platelet Count 187 10^3/cmm (130-400); Red Blood Count 3.87 10^6/uL (4.1-5.3); White Blood Count 6.2 10^3/uL (4.0-10.0)
[2021-07-07 03:34] LABS: Chol HDL Ratio 1.98 mg/dL (0.0-4.40); Cholesterol 127 mg/dL (0-200); HDL Cholesterol 64 mg/dL (60-100); LDL Cholesterol Calculated 42 mg/dL (50-129); Triglycerides 106 mg/dL (0-150); VLDL Cholestrol Calculation 21 mg/dL (0-30)
[2021-07-07 03:40] LABS: Alanine Aminotransferase 10 U/L (0-33); Albumin Level 3.6 g/dL (3.5-5.2); Alkaline Phosphatase 46 IU/L (35-105); Anion Gap 15.2 (5-19); Aspartate Amino Transferase 12 U/L (0-32); Blood Urea Nitrogen 16 mg/dL (8-23); Calcium 9.5 mg/dL (8.5-10.5); Carbon Dioxide 25 mmol/L (22-29); Chloride 103 mmol/L (98-107); Globulin 2.8 g/dL (1.3-4.6); Glucose 151 mg/dL (65-115); Magnesium 1.9 mg/dL (1.7-2.3); Osmolality Calculated 292 mOsm/kg (285-295); Phosphorus 3.9 mg/dL (2.5-4.5); Potassium 4.2 mmol/L (3.5-5.1); Sodium 139 mmol/L (136-145); Total Bilirubin 0.4 mg/dL (0.15-1.2); Total Protein 6.4 g/dL (6.6-8.7)
[2021-07-07 06:46] LABS: Glucose Point of Care 139 mg/dL (70-110)
--- NOTE | 2021-07-07 07:26 | PC.OT ---
OT EVALUATION HELD TODAY PATIENT IS SCHEDULED FOR SURGERY
[2021-07-07] MEDS: fluoxetine 20 mg Capsule 40 MG PO (08:17)
[2021-07-07] MEDS: amlodipine 10 mg Tablet PO (08:18)
[2021-07-07] MEDS: aspirin 81 mg EC Tablet PO (08:18)
[2021-07-07] MEDS: hyDROXYzine 25 mg Capsule PO ×2 (08:18→17:46)
[2021-07-07] MEDS: montelukast sodium 10 mg Tablet PO (08:18)
[2021-07-07] MEDS: pantoprazole DR 40 mg Tablet PO (08:18)
[2021-07-07] MEDS: BuSPIRONE 10 mg Tablet 7.5 MG PO (08:18)
[2021-07-07] MEDS: cholecalciferol (vitamin D3) 5,000 unit Tablet 5000 UNIT PO (08:18)
[2021-07-07] MEDS: gabapentin 300 mg Capsule PO ×2 (08:18→21:06)
[2021-07-07] MEDS: atorvastatin 40 mg Tablet 80 MG PO (08:18)
[2021-07-07] MEDS: carvedilol 25 mg Tablet PO ×2 (08:25→17:46)
[2021-07-07] MEDS: morphine 4 mg/mL SDV 1 mL 2 MG IVP ×3 (09:53→23:57)
[2021-07-07] MEDS: haloperidol inj 5 mg/mL INJ 1 mL 1 MG IVP (09:55)
--- NOTE | 2021-07-07 10:00 | MR_ITS ---
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 TECHNIQUE: Diffusion imaging, multiplanar T1, T2 and FLAIR imaging obtained. No evidence for acute infarct or hemorrhage. Dugan-white matter differentiation is normal. Mild symmetric atrophy and mild chronic microvascular ischemic changes in the white matter. No prior infarct. Small lacunar infarct in the RIGHT thalamus. Ventricles and extra-axial spaces are normal. No inferior displacement of cerebellar tonsils. The sella turcica and pituitary gland are unremarkabl e. Dural venous sinuses and [place] of demonstrate no abnormality on this unenhanced studies. Paranasal sinuses: Moderate mucoperiosteal thickening in the LEFT maxillary sinus. No air-fluid level s. Mastoid air cells: Normal. Calvarium and scalp: Intact. Hyperostosis frontalis interna. Disc osteophyte complex at C3-4 and C4-5 contacts the ventral thecal sac. MR/MR head wo con* [id number] IMPRESSION: 1. No acute infarct or hemorrhage. 2. Atrophy and chronic microvascular ischemic changes. 3. Prior lacunar infarct RIGHT thalamus.
--- NOTE | 2021-07-07 11:07 | PC.CHAP ---
Pastoral Care Encounter/Spiritual Assessment Type of Contact [] Declined bank credit card collection clerk visit [] Patient/Family/Request visit [] Outpatient visit [] Follow-up visit [] Physician referral [] Code/Alert [x] Routine visit [] Staff referral [] Actively dying [] Patient sleeping [] Family support [] [] Out of room [] Palliative care [] [x] Receiving care in room [x] Pre-surgical visit [] Trauma [] Long length of stay [] ICU visit [] Other: Relational/Emotional Strength [x] Patient feels connected with others/family/visitors/staff [] Distress [] Loneliness/isolation [] Abandonment Spirituality of Patient [x] Person of [place] [] Attends Confucianist of their [place] [x] Believes in Prayer [] Reads Bible or Latter-Day materials [] There are Spiritual issues to be addressed Senior Product Development Engineer Interventions [x] Prayer [] Active listening [x] Non-anxious presence [x] Spiritual/emotional support [] Crisis/trauma care [x] Spiritual counseling [] Bereavement support [] Provided bereavement packet [] Provided Bible/devotional materials [] Provided toy/stuffed animal, coloring book to patient or family member [] Provided Communion [] Anointing/Kendall [] Salvation [x] Completed spiritual assessment [] Other: Impact on Illness or Injury [] Angry [] Fearful [x] Anxious [] Often cries [] Exhaustion [] Unable to work [] Unable to attend yarsani [] Unable to walk/stand [] Unable to read [] Unable to drive [] Unable to eat/drink [] Unable to sleep [] Unable to be with family [] Patient intubated [] Other: Summary has negative attitude may need suegery will get to home at some point Time spent with patient 10 mins
[2021-07-07 11:28] LABS: Glucose Point of Care 163 mg/dL (70-110)
[2021-07-07 11:55] LABS: Influenza A by IFA Negative (Negative); Influenza B by IFA Negative (Negative)
--- NOTE | 2021-07-07 12:13 | P.ANESASSM_ITS ---
Pre-Anesthetic Assessment Height/Weight: Height 1.68 m Weight 90.265 kg Temp Pulse Resp BP Pulse Ox 98.4 F 68 17 110/74 97 07/07/21 12:00 07/07/21 12:00 07/07/21 12:00 07/07/21 12:00 07/07/21 12:00 Preop Diagnosis: Right trimalleolar ankle fracture Operation Date: 07/07/21 12:30 Proposed Procedures p ORIF Ankle(Right) - Cara Arauz MD Familial anesthetic complications: none Was Beta Bridger taken within 24 hours: N/A Was Clonidine taken within 24 hours: N/A Last intake: > 8 hrs Social No alcohol and No tobacco Exam alert, oriented x 3, clear to auscultation bilaterally and regular rate & rhythm Airway Mallampati: Class II Dentition: false Pulmonary Asthma CV/HEM Atrial Fibrillation, Congestive Heart Failure and Hypertension GI Gastroesophageal Reflux Disease Metabolic Diabetes Mellitus Neuropsych Neuropathy Anesthetic Plan ASA status: 3 Anesthesia: General and Regional (specify below) Risk of > 500 ml blood loss (7ml/kg in children): No Medications/Allergies Home Medications Medication Instructions Recorded Confirmed Last Taken Type B-complex with vitamin C (Super B 1 tab PO DAILY 01/18/21 07/06/21 Unknown History Complex-Vitamin C) calcium carbonate 600 mg calcium 600 mg PO DAILY 01/18/21 07/06/21 Unknown History (1,500 mg) tablet (Calcium) cholecalciferol (vitamin D3) 125 125 mcg PO QAM 01/18/21 07/06/21 Unknown History mcg (5,000 unit) capsule diclofenac sodium 1 % topical gel 2 g TOPICAL QID PRN 01/18/21 07/06/21 Unknown History (Arthritis Pain (diclofenac)) insulin human U-100 NPH-regulr 10 - 20 unit SUBCUT BID 01/18/21 07/06/21 Unknown History 70-30 mix 100 unit/mL subcutaneous susp (Humulin 70/30 U-100 Insulin) multivitamin 1 tab PO QAM 01/18/21 07/06/21 Unknown History albuterol sulfate 90 mcg/actuation 2 puff INHALATION Q6H PRN #8.5 g 03/03/21 07/06/21 Unknown Rx aerosol inhaler (ProAir HFA) flash glucose scanning reader #6 ea 03/03/21 07/06/21 Unknown Rx (FreeStyle Ericka 14 Day [place]) fluticasone furoate 100 1 inh INHALATION DAILY #60 ea 03/03/21 07/06/21 Unknown Rx mcg-vilanterol 25 mcg/dose inhalation powder (Breo Ellipta) furosemide 20 mg tablet 10 mg PO QAM 90 Days #45 tab 03/21/21 07/06/21 Unknown Rx flash glucose sensor (FreeStyle See Rx Instructions .ROUTE 05/06/21 07/06/21 Unknown Rx Ericka 14 Day Sensor) .COMPLEX #6 each hydrocodone 7.5 mg-acetaminophen 1 tab PO BID PRN 30 Days #60 tab 07/04/21 07/06/21 Unknown Rx 325 mg tablet acetaminophen 500 mg tablet 500 mg PO Q6H PRN 07/06/21 07/06/21 Unknown History amlodipine 10 mg tablet 10 mg PO QAM 07/06/21 07/06/21 Unknown History apixaban 5 mg tablet (Eliquis) 5 mg PO BID 07/06/21 07/06/21 Unknown History buspirone 7.5 mg tablet 7.5 mg PO BID 07/06/21 07/06/21 Unknown History carvedilol 25 mg tablet 25 mg PO BID 07/06/21 07/06/21 Unknown History fiber 1 cap PO BEDTIME 07/06/21 07/06/21 Unknown History fluoxetine 40 mg capsule 40 mg PO QAM 07/06/21 07/06/21 Unknown History gabapentin 600 mg tablet 600 mg PO TID 07/06/21 07/06/21 Unknown History hydroxyzine HCl 25 mg tablet 25 mg PO BID 07/06/21 07/06/21 Unknown History insulin regular human 100 unit/mL 4 - 10 unit SUBCUT DAILY PRN 07/06/21 07/06/21 Unknown History injection solution (Humulin R Regular U-100 Insulin) melatonin 10 mg tablet 10 mg PO BEDTIME 07/06/21 07/06/21 Unknown History montelukast 10 mg tablet 10 mg PO BEDTIME 07/06/21 07/06/21 Unknown History omeprazole 20 mg capsule,delayed 20 mg PO QAM 07/06/21 07/06/21 Unknown History release potassium chloride 20 mEq/15 mL 20 meq PO QAM 07/06/21 07/06/21 Unknown History oral liquid rosuvastatin 20 mg tablet 20 mg PO BEDTIME 07/06/21 07/06/21 Unknown History Allergies Allergy/AdvReac Type Severity Reaction Status Date / Time adhesive tape Allergy Unknown Verified 07/05/21 18:47 amoxicillin Allergy Unknown Verified 07/05/21 18:47 bee venom protein (honey bee) Allergy Unknown Verified 07/05/21 18:47 clavulanic acid Allergy Unknown Verified 07/05/21 18:47 [From Augmentin] maltitol Allergy Unknown Verified 07/05/21 18:47 metformin Allergy Unknown Verified 07/05/21 18:47 ranitidine Allergy Unknown Verified 07/05/21 18:47 sorbitol Allergy Unknown Verified 07/05/21 18:47 Current Medications Generic Name Dose Route Start Last Admin Trade Name Freq PRN Reason Stop Dose Admin Acetaminophen 650 mg 07/05/21 23:01 07/06/21 00:15 Acetaminophen 325 Mg Tablet PO 650 mg Q6H PRN Administration Mild/Mod Pain Or Temp >/= 101 Amlodipine Besylate 10 mg 07/06/21 09:00 07/07/21 08:18 Amlodipine 10 Mg Tablet PO 10 mg DAILY JOSE Administration Aspirin 81 mg 07/06/21 13:35 07/07/21 08:18 Aspirin 81 Mg Ec Tablet PO 81 mg DAILY JOSE Administration Atorvastatin Calcium 80 mg 07/06/21 09:00 07/07/21 08:18 Atorvastatin 40 Mg Tablet PO 80 mg DAILY JOSE Administration Buspirone HCl 7.5 mg 07/07/21 09:00 07/07/21 08:18 Buspirone 10 Mg Tablet PO 7.5 mg DAILY JOSE Administration Carvedilol 25 mg 07/06/21 08:00 07/07/21 08:25 Carvedilol 25 Mg Tablet PO 25 mg BIDWM JOSE Administration Fluoxetine HCl 40 mg 07/06/21 09:00 07/07/21 08:17 Fluoxetine 20 Mg Capsule PO 40 mg DAILY JOSE Administration Gabapentin 300 mg 07/06/21 15:00 07/07/21 08:18 Gabapentin 300 Mg Capsule PO 300 mg TID JOSE Administration Heparin Sodium (Porcine) 5,000 unit 07/06/21 14:00 07/07/21 02:29 Heparin 5,000 Unit/Ml Inj 1 Ml SUBCUT 5,000 unit Q12H JOSE Administration Hydroxyzine Pamoate 25 mg 07/06/21 18:00 07/07/21 08:18 Hydroxyzine 25 Mg Capsule PO 25 mg BID JOSE Administration Sodium Chloride 1,000 mls @ 75 mls/hr 07/06/21 13:30 07/07/21 02:30 Sodium Chloride 0.9% IV 75 mls/hr .[id number] JOSE Administration Insulin Human Lispro 0 unit 07/06/21 08:00 07/07/21 08:25 Insulin Lispro 100 Unit/1 Ml SUBCUT Not Given TIDWM [facility] Protocol Montelukast Sodium 10 mg 07/07/21 09:00 07/07/21 08:18 Montelukast Sodium 10 Mg Tablet PO 10 mg DAILY JOSE Administration Morphine Sulfate 2 mg 07/05/21 23:01 07/07/21 09:53 Morphine 4 Mg/Ml Sdv 1 Ml IVP 2 mg Q4H PRN Administration SEVERE PAIN Ondansetron HCl 4 mg 07/05/21 23:01 07/06/21 12:17 Ondansetron 2 Mg/Ml Sdv 2 Ml IVP 4 mg Q8H PRN Administration vomiting, or N/V if npo Pantoprazole Sodium 40 mg 07/07/21 09:00 07/07/21 08:[address] 40 Mg Tablet PO 40 mg DAILY JOSE Administration Vitamin D 5,000 unit 07/06/21 09:00 07/07/21 08:18 Cholecalciferol (Vitamin D3) 5,000 Unit Tablet PO 5,000 unit DAILY JOSE Administration COUNT INCLUDES THE [facility] Anesthesia Medical History (Updated 07/06/21 @ 18:18 by Cara Arauz MD) Afib Anxiety Asthma Chronic lower back pain COPD (chronic obstructive pulmonary disease) COVID-19 Diabetes type 2, controlled Diabetic neuropathy Facet arthropathy, lumbar GERD (gastroesophageal reflux disease) Heart failure History of foot drop Hyperlipidemia Lumbar disc disease with radiculopathy Surgical History (Updated 07/06/21 @ 13:33 by Lexx Thompson MD) History of back surgery History of hysterectomy History of laminectomy History of tubal ligation Family History Father Hypertension Cancer Diabetes Social History Smoking and tobacco status: former smoker Alcohol intake: never Adopted: No Caregiver/support person: No Lives independently: No Household members: family service: No Current occupational status: retired and disabled History of recent travel: No Current gender identity: Female Data Anesthesia : 07/07/21 02:37 07/07/21 02:37 Short CBC 07/05/21 07/06/21 07/07/21 Range/Units 19:40 04:56 02:37 WBC 6.3 7.8 6.2 (4.0-10.0) 10^3/uL Hgb 12.4 10.8 L 11.2 L (11.5-15.3) g/dL Hct 38.7 34.5 L 36.0 L (37.0-47.0) % MCV 90.0 91.5 93.0 (81-99) fl Plt Count 204 186 187 (130-400) 10^3/cmm Neut % (Auto) 63.0 71.2 67.3 % Neut # (Auto) 3.95 5.51 4.14 (1.8-7.7) 10^3/uL BMP 07/05/21 07/06/21 07/07/21 19:40 04:56 02:37 Sodium 141 140 139 Potassium 4.2 4.3 4.2 Chloride 103 104 103 Carbon Dioxide 28 25 25 BUN 17 18 16 Creatinine 1.0 H 1.0 H 0.8 Glucose 118 H 177 H 151 H Calcium 9.6 8.9 9.5 Cardiac Enzymes 07/05/21 07/06/21 07/06/21 Range/Units 22:48 00:55 04:56 Troponin T Baseline 20 H (0-10) ng/L Troponin T 120 Minute 19.27 H (0-10) ng/L Delta Troponin T -0.73 L (0-10) ABS# Troponin T Hi Sens 6Hr 19.84 H (0-10) ng/L Troponin T Hi Sens 6Hr Delta -0.16 L (0-12) ng/L 07/06/21 07/06/21 07/06/21 Range/Units 14:15 16:02 20:22 Troponin T Baseline 20 H (0-10) ng/L Troponin T 120 Minute 20.38 H (0-10) ng/L Delta Troponin T 0.38 (0-10) ABS# Troponin T Hi Sens 6Hr 22.01 H (0-10) ng/L Troponin T Hi Sens 6Hr Delta 2.01 (0-12) ng/L Liver Function 07/05/21 07/06/21 07/07/21 Range/Units 19:40 04:56 02:37 Total Bilirubin 0.3 0.5 0.4 (0.15-1.2) mg/dL AST 21 16 12 (0-32) U/L ALT 18 15 10 (0-33) U/L Alkaline Phosphatase 52 45 46 (35-105) IU/L Albumin 4.1 3.8 3.6 (3.5-5.2) g/dL Urine 07/05/21 Range/Units 23:59 Urine Color Yellow (Yellow) Urine Appearance Clear (CLEAR) Urine pH 7 (5-7) Ur Specific [place] 1.005 (1.005-1.030) Urine Protein Neg (Negative) Urine Glucose (UA) Norm (Normal) Urine Ketones Negative (Negative) Urine Nitrate Negative (Negative) Urine Bilirubin Neg (Negative) Ur Leukocyte Esterase Negative (Negative) Coags 07/05/21 19:40 PT 15.30 H INR 1.17 Cardiac Studies: Echocardiogram 07/06/21
--- NOTE | 2021-07-07 12:14 | ANES.PROC ---
Anesthesia Procedures Procedure/Date: 07/07/21 Nerve Block ^: Nerve Block 1: Main Anesthesia: general anesthesia Time Out Performed: Yes Consent: requested by attending/covering physician, from patient, risks and benefits reviewed (patient informed she is at higher risk of nerve damage d/t pre-existing footdrop/neuropathy in R foot) and patient agrees to proceed Nerve block location: popliteal (R) Anesthesia monitors applied: pulse oximetry, EKG, BP cuff and oxygen Nerve block position: supine Anesthetic Used: ropivicaine 0.5% (30) and with decadron (4 mg) Ultrasound used to: recognize landmarks and visualize and ID interscalene groove Nerve Stimulator Used?: No Interscalene/Femoral BLK: 4 stimuplex 21 g needle used for position and inplane approach, visualize local anesthetic spread and no vascular puncture identified Injection: neg aspiration of heme and paresthesia +/- Patient Tolerated Procedure: well Complications: none
[2021-07-07] MEDS: acetaminophen 1,000 MG/100 ML PIGGYBACK 400 MG IV (12:22)
[2021-07-07] MEDS: sodium chloride 0.9% 1,000 ML 30 ML IV (12:24)
[2021-07-07] MEDS: CELEcoxib 200 mg Capsule 400 MG PO (12:25)
[2021-07-07] MEDS: vancomycin 1,000 MG in sodium chloride 0.9% 250 ML 250 MG IV (12:25)
--- NOTE | 2021-07-07 12:33 | PM.MISC ---
Miscellaneous Note Purpose of Documentation: Preop evaluation Note: Patient was seen in the preop holding area. Confirmation of the appropriate ankle for surgical intervention was accomplished. The appropriate surgical extremity was marked. Consents were reviewed and signed.
--- NOTE | 2021-07-07 13:05 | PM.PN ---
Subjective Subjective: No cramps overnight. Patient has remained hemodynamically stable and afebrile. Orthostatic negative. Today morning examination being wheeled out to the OR. Overnight patient has been complaining of occasional pain. No events on telemetry. Tmax overnight 99.7 F Vitals/I&O/Wt Last Vital Signs Temp 98.4 F 07/07/21 12:00 Pulse 68 07/07/21 12:00 Resp 17 07/07/21 12:00 BP 110/74 07/07/21 12:00 Pulse Ox 97 07/07/21 12:00 07/06/21 07/07/21 07/07/21 22:59 06:59 14:59 Intake Total 50 / 50 940 / 990 100 / 100 Output Total 525 / 525 Balance 50 / 50 415 / 465 100 / 100 Weight last 48 hrs Weight 90.265 kg Physical Exam Const: COMMON NORMALS: no acute distress and patient oriented x3 HENMT: COMMON NORMALS: normocephalic HEAD & SCALP: normocephalic Neck/C-Spine: COMMON NORMALS: no JVD Resp: COMMON NORMALS: normal respiratory effort, No retractions, No use of accessory muscles and clear to auscultation bilaterally AUSCULTATION: clear to auscultation bilaterally Cardio: COMMON NORMALS: no JVD, regular rate, regular rhythm, S1 normal heart sound present and S2 normal heart sound present RATE: regular rate RHYTHM: regular rhythm HEART SOUNDS: S1 normal heart sound present and S2 normal heart sound present GI: COMMON NORMALS: Normal to inspection, nondistended, normoactive bowel sounds present, Soft to palpation, non-tender, No hepatosplenomegaly present, no masses and no bruits PALPATION: Yes Soft to palpation and Yes No hepatosplenomegaly present Extremity: NARRATIVE EXTREMITY EXAM: Bilateral extremities casted Neuro: COMMON NORMALS: patient oriented x3 Psych: COMMON NORMALS: mental status grossly normal Data : 07/07/21 02:37 07/07/21 02:37 A&P Assessment and plan (1) Bilateral ankle fractures: Status: Acute Qualifiers: Encounter type: initial encounter Fracture type: closed Qualified Code(s): S82.891A - Other fracture of right lower leg, initial encounter for closed fracture; S82.892A - Other fracture of left lower leg, initial encounter for closed fracture (2) Pre-syncope: Status: Acute (3) Carotid arterial disease: Status: Acute (4) Fall: Status: Acute Qualifiers: Encounter type: initial encounter Qualified Code(s): W19.XXXA - Unspecified fall, initial encounter (5) Afib: Status: Acute Qualifiers: Atrial fibrillation type: unspecified chronic Qualified Code(s): I48.20 - Chronic atrial fibrillation, unspecified (6) Diabetes type 2, controlled: Status: Acute Qualifiers: Diabetes mellitus terminal supervisor insulin use: with terminal supervisor use Diabetes mellitus complication status: without complication Qualified Code(s): E11.9 - Type 2 diabetes mellitus without complications; Z79.4 - correction (current) use of insulin Plan Bilateral ankle fractures: Appreciate orthopedic recommendations. Care discussed with Dr. Arauz in detail. Plan for OR. Physical therapy as per orthopedic team. [place] 5 every 8 hours as needed for pain along with Tylenol tramadol 50 every 6 hours. Flu swab negative, Covid swab awaited. Syncope/presyncope: Telemetry. CTA head and neck shows bilateral carotid artery disease. 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 Echocardiogram results appreciated for EF of 83%, grade 3 diastolic dysfunction, mild LA dilatation. Orthostatic negative. A1c recently 6.9. Lipid panel appreciated. Atorvastatin 80 mg daily, aspirin 81 mg daily. For now hold off on Eliquis given possible need of OR. Decrease dose of BuSpar to 7.5 mg daily. Decrease gabapentin to 300 3 times daily. Bilateral carotid artery disease: Appreciated on CTA. Continue with aspirin and statin for now. Most likely patient will need to follow-up with Dr. Esposito as an outpatient for further intervention. Fever: Overnight patient had 99.4. Currently no leukocytosis. UA on admission negative for any sign of UTI. Patient currently on room air. For now hold off any further antibiotics. Check procalcitonin. Lung nodule: Seen on CT head. We will do CT chest with contrast. Type 2 diabetes mellitus: Insulin sliding scale at low-dose protocol before meals and at bedtime. Atrial fibrillation with rapid ventricular response: Rate controlled. Continue with Coreg. Holding of Eliquis for possible OR. Hypertension: Goal blood pressure less than 140/90 mmHg with mean over 65. Continue with home dose of Coreg and amlodipine. Orthostatic as above. COPD: Not in exacerbation. DNR/DNI. NPO. Cardiac carb consistent diet postoperatively. Heparin 5000 every 12 for DVT prophylaxis for now. Switch to Eliquis once okay with surgery. Protonix for PUD prophylaxis Discharge planning: Given bilateral ankle fractures patient would most likely need placement to SNF for further rehabitation. computer systems manager alerted. Attestations Medical Necessity Statement*: Requires further hospitalization for further evaluation of presyncope, bilateral carotid artery disease, bilateral ankle fractures. Time Spent in Patient Care: Greater than 35 minutes Coding Level of Care Code Acute Agronomy Advisor for [facility] Fwd Diagnoses Bilateral ankle fractures S82.891A; S82.892A Encounter type: initial encounter Fracture type: closed Fall W19.XXXA Encounter type: initial encounter Pre-syncope R55 Afib I48.20 Atrial fibrillation type: unspecified chronic Diabetes type 2, controlled E11.9; Z79.4 Diabetes mellitus terminal supervisor insulin use: with terminal supervisor use Diabetes mellitus complication status: without complication Carotid arterial disease I77.9
[2021-07-07] MEDS: vancomycin 1,000 MG SDV 1000 MG IRRIGATION (13:20)
[2021-07-07 13:22] LABS: Adenovirus Not Detected (NOT DETECT); Chlamydia Pneumoniae Not Detected (NOT DETECT); Coronavirus 229E,HKU1,NL63,OC4 Not Detected (NOT DETECT); Human Metapneumovirus Not Detected (NOT DETECT); Human Rhinovirus/Enterovirus Not Detected (NOT DETECT); Influenza A Not Detected (NOT DETECT); Influenza A H1 Not Detected (NOT DETECT); Influenza A H1-2009 Not Detected (NOT DETECT); Influenza A H3 Not Detected (NOT DETECT); Influenza B Not Detected (NOT DETECT); Mycoplasma Pneumoniae Not Detected (NOT DETECT); Parainfluenza Virus Type 1 Not Detected (NOT DETECT); Parainfluenza Virus Type 2 Not Detected (NOT DETECT); Parainfluenza Virus Type 3 Not Detected (NOT DETECT); Parainfluenza Virus Type 4 Not Detected (NOT DETECT); Respiratory Syncytial Virus A Not Detected (NOT DETECT); Respiratory Syncytial Virus B Not Detected (NOT DETECT); SARS-COV-2 Not Detected (NOT DETECT)
--- NOTE | 2021-07-07 15:35 | PM.OP ---
Operative Report Date of procedure: July 07, 2021 Pre-op diagnosis: Right trimalleolar ankle fracture Post-op diagnosis: Right trimalleolar ankle fracture Post-op findings: High fibular shaft fracture above the plafond and with comminution and medial and posterior malleolar fracture Procedure done: Open reduction internal fixation with plate fixation of distal fibula and cannulated screw fixation of medial malleolus Implants: 4-hole [place] lateral fibular plate with 2 medial headed screws, [place]. Pathology: none sent Surgeon: Cara Arauz Timber Framer Helper: [facility] operating room technicians Anesthesia: General (LMA, ASA 3) Estimated blood loss (mL): 10 Tourniquet time (min): 70 (At 250 mmHg) IV fluids (mL): 600 Urine output (mL): 400 Complications: None Findings: Comminuted distal fibula fracture with displaced medial malleolus Condition: stable Disposition: PACU (Then return to floor for post operative rehab and pain management) Brief History: Ana M New is a 75 year old female who was in her usual state of health when she became dizzy at home. She does relate that she has had multiple dizzy episodes over the past 2-1/2 weeks. She states that she was using a walker, and she fell forward hit a cabinet and flew backwards falling onto the floor. She states that she hurt her lumbosacral spine which has been evaluated while in the emergency department. She also had diagnosis of bilateral ankle fractures. The right is a trimalleolar minimally displaced fracture in the left is a distal fibula fracture. Additionally, she complained of knee pain. This also was bilateral. Procedure: Patient was seen in the preoperative holding area and leg was marked. Patient was brought to the operating theater and placed on the operating room table. After undergoing adequate general anesthesia per LMA, ASA 3, the patient's right lower extremity was prepped and draped in usual fashion utilizing DuraPrep. The leg was draped free. Fluoroscopy was used throughout the surgical procedure. We did have a tourniquet high on the right lower extremity. This was elevated to 250 mmHg and total tourniquet time was 70 minutes. Tourniquet elevation followed exsanguination of the leg. A surgical pause was performed. At the time of the surgical pause we identified the site and side of surgery as well as the patient's identity and availability of equipment. We also confirmed appropriate administration of IV antibiotics, vancomycin 1 g. Following the above, an incision was made centering over the patient's lateral ankle to address the distal fibular shaft fracture. The incision was continued proximally distally as necessary to allow access to the fracture. The fracture was noted to have comminution. Fracture lines were visible. We were able to reduce the fracture, but it was nearly anatomic at the time of exposure. A [place] 4-hole lateral fibular plate was attached with standard technique. We used locking screws to attach the plate. Once the plate was appropriately attached, we irrigated the wound. We then closed the wound with 0 Vicryl in the fascial tissues, 2-0 Monocryl in the subcutaneous tissues, and the skin was closed with 3-0 Monocryl. Attention was then directed to the medial aspect of the ankle. Once again, we used fluoroscopy to determine the appropriate level of the incision as well as palpation over the fracture. An incision was made over the site of the fracture. Two guidewires were placed in appropriate position as visualized in AP and lateral planes. We were then able to place cannulated screws, each of which was 34 mm in length over the cannulated screws to hold the medial malleolus nicely reduced. Throughout the surgical procedure and at the conclusion of the procedure we did use fluoroscopy. Fluoroscopy was utilized to determine appropriate positioning of the plate as well as the fractures. At the conclusion we obtained AP and lateral images demonstrating the fracture was anatomically reduced. The medial incision was closed with 2-0 Monocryl in the subcutaneous tissues. The skin was then closed with 3-0 Monocryl. Sterile dressing was placed consisting of Dermabond, Steri-Strips, OpSite, sterile soft roll and an Epi wrap. The patient was placed in a Cam Walker boot and is to remain nonweightbearing. The procedure was well tolerated without complication. Tourniquet time was 70 minutes at 250 mmHg. The patient will be discharged to the floor for postoperative rehabilitation, medical management, and pain management. Related Problem List Diagnoses (1) Closed trimalleolar fracture of right ankle: (2) Closed fracture of left distal fibula: Nonoperative surgical procedure.
[2021-07-07 17:12] LABS: Glucose Point of Care 205 mg/dL (70-110)
[2021-07-07] MEDS: HYDROcodone-acetaminophen 5-325 mg Tablet 1 TAB PO (17:44)
[2021-07-07] MEDS: apixaban 5 mg Tablet PO (17:46)
[2021-07-07] MEDS: insulin lispro 100 unit/1 mL SUBCUT ×2 (17:46→21:52)
[2021-07-07] MEDS: CELEcoxib 200 mg Capsule PO (21:06)
[2021-07-07 21:44] LABS: Glucose Point of Care 268 mg/dL (70-110)
[2021-07-07] MEDS: TRAMadol 50 mg Tablet PO (21:55)
[2021-07-08] VITALS (11 sets, daily range): BP systolic 102–140; BP diastolic 50–76; PULSE 64–74; RESP 16–18; TEMP 36.6–37.1; O2SAT 88–97
[2021-07-08 03:52] LABS: Hematocrit 33.9 % (37.0-47.0); Hemoglobin 10.6 g/dL (11.5-15.3); Lymphocytes # 0.4 10^3/uL (0.8-4.8); Lymphocytes % 7.6 %; Mean Corpuscular HGB Conc 31.3 g/dL (30.0-36.0); Mean Corpuscular Volume 92.9 fl (81-99); Mean Platelet Volume 11.6 fL (7.4-10.4); Monocytes # 0.3 10^3/uL (0.2-0.9); Monocytes % 5.4 %; Neutrophils # 4.68 10^3/uL (1.8-7.7); Neutrophils % 86.6 %; Nucleated Red Blood Cells % 0 %; Platelet Count 169 10^3/cmm (130-400); Red Blood Count 3.65 10^6/uL (4.1-5.3); Red Cell Distribution Width 13.2 % (12.1-15.1); White Blood Count 5.4 10^3/uL (4.0-10.0)
[2021-07-08 04:17] LABS: Alanine Aminotransferase 10 U/L (0-33); Albumin Level 3.6 g/dL (3.5-5.2); Alkaline Phosphatase 46 IU/L (35-105); Anion Gap 15.5 (5-19); Aspartate Amino Transferase 12 U/L (0-32); Blood Urea Nitrogen 24 mg/dL (8-23); Calcium 8.8 mg/dL (8.5-10.5); Carbon Dioxide 24 mmol/L (22-29); Chloride 102 mmol/L (98-107); Globulin 2.3 g/dL (1.3-4.6); Glucose 283 mg/dL (65-115); Osmolality Calculated 298 mOsm/kg (285-295); Phosphorus 4.7 mg/dL (2.5-4.5); Potassium 4.5 mmol/L (3.5-5.1); Sodium 137 mmol/L (136-145); Total Bilirubin 0.3 mg/dL (0.15-1.2); Total Protein 5.9 g/dL (6.6-8.7)
[2021-07-08 06:30] LABS: Glucose Point of Care 274 mg/dL (70-110)
[2021-07-08] MEDS: montelukast sodium 10 mg Tablet PO (08:12)
[2021-07-08] MEDS: BuSPIRONE 10 mg Tablet 7.5 MG PO (08:12)
[2021-07-08] MEDS: HYDROcodone-acetaminophen 5-325 mg Tablet 1 TAB PO ×2 (08:12→22:07)
[2021-07-08] MEDS: cholecalciferol (vitamin D3) 5,000 unit Tablet 5000 UNIT PO (08:12)
[2021-07-08] MEDS: atorvastatin 40 mg Tablet 80 MG PO (08:12)
[2021-07-08] MEDS: clopidogrel 75 mg Tablet PO (08:13)
[2021-07-08] MEDS: hyDROXYzine 25 mg Capsule PO ×2 (08:13→17:38)
[2021-07-08] MEDS: gabapentin 300 mg Capsule PO ×3 (08:13→21:05)
[2021-07-08] MEDS: amlodipine 10 mg Tablet PO (08:13)
[2021-07-08] MEDS: carvedilol 25 mg Tablet PO ×2 (08:13→17:38)
[2021-07-08] MEDS: pantoprazole DR 40 mg Tablet PO (08:13)
[2021-07-08] MEDS: apixaban 5 mg Tablet PO ×2 (08:13→17:38)
[2021-07-08] MEDS: fluoxetine 20 mg Capsule 40 MG PO (08:13)
[2021-07-08] MEDS: insulin lispro 100 unit/1 mL SUBCUT ×4 (08:22→21:06)
[2021-07-08] MEDS: CELEcoxib 200 mg Capsule PO ×2 (10:22→21:07)
[2021-07-08] MEDS: sodium chloride 0.9% 1,000 ML 75 ML IV (10:23)
[2021-07-08 11:47] LABS: Glucose Point of Care 302 mg/dL (70-110)
[2021-07-08] MEDS: vancomycin 1,000 MG in sodium chloride 0.9% 250 ML 250 MG IV (11:51)
[2021-07-08] MEDS: TRAMadol 50 mg Tablet PO (11:53)
--- NOTE | 2021-07-08 13:59 | PM.PN ---
Subjective Subjective: No events overnight. Tolerated the OR well yesterday. Overnight hemodynamically stable. Working well with physical therapy today. Complaining of mild pain post physical therapy. Afebrile last 24 hours. Vitals/I&O/Wt Last Vital Signs Temp 97.8 F 07/08/21 12:00 Pulse 66 07/08/21 12:00 Resp 17 07/08/21 12:00 BP 102/65 07/08/21 12:00 Pulse Ox 95 07/08/21 12:00 07/07/21 07/08/21 07/08/21 22:59 06:59 14:59 Intake Total 1530 / 1880 480 / 2360 2036.5 / 2036.5 Output Total 500 / 910 520 / 1430 Balance 1030 / 970 -40 / 930 2036. / 2036. Physical Exam Const: COMMON NORMALS: no acute distress and patient oriented x3 HENMT: COMMON NORMALS: normocephalic HEAD & SCALP: normocephalic Neck/C-Spine: COMMON NORMALS: no JVD Resp: COMMON NORMALS: normal respiratory effort, No retractions, No use of accessory muscles and clear to auscultation bilaterally AUSCULTATION: clear to auscultation bilaterally Cardio: COMMON NORMALS: no JVD, regular rate, regular rhythm, S1 normal heart sound present and S2 normal heart sound present RATE: regular rate RHYTHM: regular rhythm HEART SOUNDS: S1 normal heart sound present and S2 normal heart sound present GI: COMMON NORMALS: Normal to inspection, nondistended, normoactive bowel sounds present, Soft to palpation, non-tender, No hepatosplenomegaly present, no masses and no bruits PALPATION: Yes Soft to palpation and Yes No hepatosplenomegaly present Extremity: NARRATIVE EXTREMITY EXAM: Bilateral extremities casted Neuro: COMMON NORMALS: patient oriented x3 Psych: COMMON NORMALS: mental status grossly normal Data : 07/08/21 03:07 07/08/21 03:07 A&P Assessment and plan (1) Bilateral ankle fractures: Status: Acute Qualifiers: Encounter type: initial encounter Fracture type: closed Qualified Code(s): S82.891A - Other fracture of right lower leg, initial encounter for closed fracture; S82.892A - Other fracture of left lower leg, initial encounter for closed fracture (2) Pre-syncope: Status: Acute (3) Carotid arterial disease: Status: Acute (4) Fall: Status: Acute Qualifiers: Encounter type: initial encounter Qualified Code(s): W19.XXXA - Unspecified fall, initial encounter (5) Afib: Status: Acute Qualifiers: Atrial fibrillation type: unspecified chronic Qualified Code(s): I48.20 - Chronic atrial fibrillation, unspecified (6) Diabetes type 2, controlled: Status: Acute Qualifiers: Diabetes mellitus watermaster insulin use: with detention use Diabetes mellitus complication status: without complication Qualified Code(s): E11.9 - Type 2 diabetes mellitus without complications; Z79.4 - emt intermediate (current) use of insulin (7) Diastolic heart failure: Status: Acute Plan Bilateral ankle fractures: Appreciate orthopedic recommendations. Post-ORIF day 1. Physical therapy as per orthopedic team. [place] 5 every 8 hours as needed for pain along with Tylenol tramadol 50 every 6 hours. Flu swab negative, Covid swab awaited. Stop IV fluids. Syncope/presyncope: Most likely secondary to bilateral carotid artery disease. Telemetry. CTA head and neck shows bilateral carotid artery disease. 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 Echocardiogram results appreciated for EF of 83%, grade 3 diastolic dysfunction, mild LA dilatation. Orthostatic negative. A1c recently 6.9. Lipid panel appreciated. Atorvastatin 80 mg daily, Plavix 75 mg daily. Restart home dose of Eliquis. Decrease dose of BuSpar to 7.5 mg daily. Decrease gabapentin to 300 3 times daily. Bilateral carotid artery disease: Appreciated on CTA. Continue with Plavix and statin for now. Most likely patient will need to follow-up with Dr. Esposito as an outpatient for further intervention. Lung nodule: Seen on CT head. We will do CT chest with contrast. Type 2 diabetes mellitus: Insulin sliding scale at low-dose protocol before meals and at bedtime. Blood sugar mildly elevated. Add Lantus 10 units nightly. Atrial fibrillation with rapid ventricular response: Rate controlled. Continue with Coreg. Holding of Eliquis for possible OR. Hypertension: Goal blood pressure less than 140/90 mmHg with mean over 65. Continue with home dose of Coreg and amlodipine. Orthostatic as above. COPD: Not in exacerbation. DNR/DNI. NPO. Cardiac carb consistent diet postoperatively. Heparin 5000 every 12 for DVT prophylaxis for now. Switch to Eliquis once okay with surgery. Protonix for PUD prophylaxis Discharge planning: Discharge to SNF. Awaiting acceptance and prior authorization. Attestations Medical Necessity Statement*: Requires further hospitalization for post ORIF care, presyncope work-up with bilateral carotid artery stenosis while safe discharge planning is sought Time Spent in Patient Care: Greater than 35 minutes Coding Level of Care Code Acute Hospice Nurse Practitioner for [facility] Fwd Diagnoses Bilateral ankle fractures S82.891A; S82.892A Encounter type: initial encounter Fracture type: closed Pre-syncope R55 Carotid arterial disease I77.9 Fall W19.XXXA Encounter type: initial encounter Afib I48.20 Atrial fibrillation type: unspecified chronic Diabetes type 2, controlled E11.9; Z79.4 Diabetes mellitus watermaster insulin use: with detention use Diabetes mellitus complication status: without complication Diastolic heart failure I50.30
--- NOTE | 2021-07-08 15:43 | PC.NURSE ---
Pt's Sp02 was 89%, noticed she had 3L running on the wall but nasal cannula was hanging on the wall. Advised she put it back in. Patient complied.
--- NOTE | 2021-07-08 16:57 | PM.PN ---
Subjective Subjective: The patient agrees that she is doing very well. She is in good spirits. She is excited that she has had a reason to find for her dizziness. Medications: Reviewed: Yes Vitals/I&O/Wt Last Vital Signs Temp 98.8 F 07/08/21 15:39 Pulse 74 07/08/21 15:39 Resp 17 07/08/21 15:39 BP 140/76 07/08/21 15:39 Pulse Ox 89 L 07/08/21 15:39 07/08/21 07/08/21 07/08/21 06:59 14:59 22:59 Intake Total 480 / 2360 3370.5 / 3370.5 300 / 3670.5 Output Total 520 / 1430 Balance -40 / 930 3370.5 / 3370.5 300 / 3670.5 Physical Exam Const: COMMON NORMALS: no acute distress, average body habitus, patient oriented x3 and alert GENERAL APPEARANCE: cooperative and comfortable ORIENTATION/CONSCIOUSNESS: Yes awake HENMT: COMMON NORMALS: normocephalic and atraumatic HEAD & SCALP: normocephalic and atraumatic Eye: GENERAL EYE: appearance normal, both eyes and all related structures Chest: COMMONS NORMALS: normal inspection of the chest Resp: COMMON NORMALS: normal respiratory effort EFFORT & INSPECTION: Yes able to speak in complete sentences and Yes symmetric chest movement Back/Pelvis: OTHER: Complains of lower back pain which has been evaluated in the emergency department. Extremity: NARRATIVE EXTREMITY EXAM: Bilateral Cam walkers on the extremities. Right foot has had neurologic issues, but it is back to his preoperative baseline as is the left foot. Neuro: COMMON NORMALS: patient oriented x3 SENSORIUM/ORIENTATION: Yes alert Psych: COMMON NORMALS: mental status grossly normal APPEARANCE: Yes grossly normal ATTITUDE: Yes calm and Yes engaged ATTENTION/CONCENTRATION: Yes attention grossly intact Skin: COMMON NORMALS: no rashes or lesions noted GENERAL SKIN EXAM: no rashes or lesions noted Data : 07/08/21 03:07 07/08/21 03:07 A&P Assessment and plan (1) Closed trimalleolar fracture of right ankle: X-ray images include evidence of a trimalleolar ankle fracture on the right. There is minimal displacement and a very small posterior malleolar fracture. There is a transverse fracture of the medial malleolus with some displacement. There is also a fracture involving the distal fibula above the plafond. This is visualized on plain films and on CT scan. The patient underwent an open reduction internal fixation of this fracture. This procedure was well-tolerated. The patient is working with physical therapy. She will be touchdown weightbearing on the right lower extremity Status: Acute (2) Closed fracture of left distal fibula: Patient has been fitted with a fracture boot and is allowed to be weightbearing as tolerated on this fracture. Status: Acute Attestations Medical Necessity Statement*: Patient requires ongoing hospitalization awaiting placement for nursing home. Coding Level of Care Code Acute Packaging Design Engineer for [facility] Fw Exam Detailed Diagnoses Closed trimalleolar fracture of right ankle S82.851A Closed fracture of left distal fibula S82.831B
[2021-07-08 17:45] LABS: Glucose Point of Care 422 mg/dL (70-110)
--- NOTE | 2021-07-08 18:28 | PC.NURSE ---
Assumed care of patient late afternoon, patient AAOx4, no c/o pain, resting in bed and repositioning as frequently as tolerable. No new events and no needs at this time.
[2021-07-08 21:06] LABS: Glucose Point of Care 325 mg/dL (70-110)
[2021-07-08] MEDS: acetaminophen 500 mg Tablet 1000 MG PO (21:06)
[2021-07-08] MEDS: insulin glargine 100 units/1 mL 10 UNIT SUBCUT (21:06)
[2021-07-09] VITALS (12 sets, daily range): BP systolic 108–123; BP diastolic 50–72; PULSE 60–83; RESP 16–18; TEMP 36.7–37.1; O2SAT 90–99
[2021-07-09 03:49] LABS: Basophils % 0.4 %; Eosinophils % 0.4 %; Hematocrit 32.9 % (37.0-47.0); Hemoglobin 10.4 g/dL (11.5-15.3); Lymphocytes # 1.2 10^3/uL (0.8-4.8); Lymphocytes % 12.6 %; Mean Corpuscular HGB Conc 31.6 g/dL (30.0-36.0); Mean Corpuscular Hemoglobin 29.3 pg (28.0-34.0); Mean Corpuscular Volume 92.7 fl (81-99); Mean Platelet Volume 11.1 fL (7.4-10.4); Monocytes # 1.1 10^3/uL (0.2-0.9); Monocytes % 12.3 %; Neutrophils # 6.83 10^3/uL (1.8-7.7); Neutrophils % 73.9 %; Nucleated Red Blood Cells % 0 %; Platelet Count 215 10^3/cmm (130-400); Red Blood Count 3.55 10^6/uL (4.1-5.3); Red Cell Distribution Width 13.4 % (12.1-15.1); White Blood Count 9.3 10^3/uL (4.0-10.0)
[2021-07-09 04:14] LABS: Alanine Aminotransferase 16 U/L (0-33); Albumin Level 3.2 g/dL (3.5-5.2); Alkaline Phosphatase 42 IU/L (35-105); Anion Gap 15.4 (5-19); Aspartate Amino Transferase 24 U/L (0-32); Blood Urea Nitrogen 32 mg/dL (8-23); Carbon Dioxide 24 mmol/L (22-29); Chloride 103 mmol/L (98-107); Glucose 151 mg/dL (65-115); Osmolality Calculated 296 mOsm/kg (285-295); Potassium 4.4 mmol/L (3.5-5.1); Sodium 138 mmol/L (136-145); Total Bilirubin 0.4 mg/dL (0.15-1.2); Total Protein 6.2 g/dL (6.6-8.7)
[2021-07-09 06:27] LABS: Glucose Point of Care 160 mg/dL (70-110)
[2021-07-09] MEDS: acetaminophen 500 mg Tablet 1000 MG PO (06:28)
[2021-07-09] MEDS: cholecalciferol (vitamin D3) 5,000 unit Tablet 5000 UNIT PO (08:04)
[2021-07-09] MEDS: clopidogrel 75 mg Tablet PO (08:04)
[2021-07-09] MEDS: insulin lispro 100 unit/1 mL SUBCUT ×4 (08:04→22:33)
[2021-07-09] MEDS: fluoxetine 20 mg Capsule 40 MG PO (08:04)
[2021-07-09] MEDS: carvedilol 25 mg Tablet PO ×2 (08:04→18:01)
[2021-07-09] MEDS: BuSPIRONE 10 mg Tablet 7.5 MG PO (08:05)
[2021-07-09] MEDS: atorvastatin 40 mg Tablet 80 MG PO (08:05)
[2021-07-09] MEDS: apixaban 5 mg Tablet PO (08:08)
[2021-07-09] MEDS: montelukast sodium 10 mg Tablet PO (08:08)
[2021-07-09] MEDS: hyDROXYzine 25 mg Capsule PO ×2 (08:08→18:01)
[2021-07-09] MEDS: pantoprazole DR 40 mg Tablet PO (08:08)
[2021-07-09] MEDS: gabapentin 300 mg Capsule PO ×3 (08:08→20:31)
[2021-07-09] MEDS: amlodipine 10 mg Tablet PO (08:08)
[2021-07-09] MEDS: CELEcoxib 200 mg Capsule PO (09:13)
[2021-07-09 10:57] LABS: Glucose Point of Care 189 mg/dL (70-110)
[2021-07-09] MEDS: sodium chloride 0.9% 1,000 ML 75 ML IV (11:49)
--- NOTE | 2021-07-09 13:15 | PC.SOCIAL ---
IM explaimned and copy provided. Pt verbalized understanding.
[2021-07-09] MEDS: HYDROcodone-acetaminophen 5-325 mg Tablet 1 TAB PO (14:20)
--- NOTE | 2021-07-09 14:35 | P.PN_ITS ---
Subjective Subjective: No events overnight. Doing very well with physical therapy. Seen by sitting in chair and doing physical therapy. Alex catheter still in place. Showing mild hematuria most likely traumatic from pulling of Alex catheter during PT. Hemodynamically stable and afebrile Medications: Reviewed: Yes Vitals/I&O/Wt Last Vital Signs Temp 98.1 F 07/09/21 12:00 Pulse 76 07/09/21 12:00 Resp 18 07/09/21 12:00 BP 121/72 07/09/21 12:00 Pulse Ox 96 07/09/21 12:00 07/08/21 07/09/21 07/09/21 22:59 06:59 14:59 Intake Total 960 / 4330.5 540 / 540 Output Total 880 / 880 800 / 1680 Balance 80 / 3450.5 -800 / 2650.5 540 / 540 Physical Exam Const: COMMON NORMALS: no acute distress and patient oriented x3 HENMT: COMMON NORMALS: normocephalic HEAD & SCALP: normocephalic Neck/C-Spine: COMMON NORMALS: no JVD Resp: COMMON NORMALS: normal respiratory effort, No retractions, No use of accessory muscles and clear to auscultation bilaterally AUSCULTATION: clear to auscultation bilaterally Cardio: COMMON NORMALS: no JVD, regular rate, regular rhythm, S1 normal heart sound present and S2 normal heart sound present RATE: regular rate RHYTHM: regular rhythm HEART SOUNDS: S1 normal heart sound present and S2 normal heart sound present GI: COMMON NORMALS: Normal to inspection, nondistended, normoactive bowel sounds present, Soft to palpation, non-tender, No hepatosplenomegaly present, no masses and no bruits PALPATION: Yes Soft to palpation and Yes No hepatosplenomegaly present Extremity: NARRATIVE EXTREMITY EXAM: Bilateral extremities casted Neuro: COMMON NORMALS: patient oriented x3 Psych: COMMON NORMALS: mental status grossly normal Data : 07/09/21 03:31 07/09/21 03:31 A&P Assessment and plan (1) Bilateral ankle fractures: Status: Acute Qualifiers: Encounter type: initial encounter Fracture type: closed Qualified Code(s): S82.891A - Other fracture of right lower leg, initial encounter for closed fracture; S82.892A - Other fracture of left lower leg, initial encounter for closed fracture (2) Pre-syncope: Status: Acute (3) Carotid arterial disease: Status: Acute (4) Fall: Status: Acute Qualifiers: Encounter type: initial encounter Qualified Code(s): W19.XXXA - Unspecified fall, initial encounter (5) Afib: Status: Acute Qualifiers: Atrial fibrillation type: unspecified chronic Qualified Code(s): I48.20 - Chronic atrial fibrillation, unspecified (6) Diabetes type 2, controlled: Status: Acute Qualifiers: Diabetes mellitus terminal carman insulin use: with terminal carman use Diabetes mellitus complication status: without complication Qualified Code(s): E11.9 - Type 2 diabetes mellitus without complications; Z79.4 - half-way (current) use of insulin (7) Diastolic heart failure: Status: Acute Plan Bilateral ankle fractures: Appreciate orthopedic recommendations. Post-ORIF day 2. Physical therapy as per orthopedic team. [place] 5 every 8 hours as needed for pain along with Tylenol tramadol 50 every 6 hours. Flu swab negative, Covid swab awaited. Restart IV fluids with normal saline at 75 cc/h for 1 bag. Syncope/presyncope: Most likely secondary to bilateral carotid artery disease. Telemetry. CTA head and neck shows bilateral carotid artery disease. MRI results appr eciated for old lacunar infarct in thalamus. Echocardiogram results appreciated for EF of 83%, grade 3 diastolic dysfunction, mild LA dilatation. Orthostatic negative. A1c recently 6.9. Lipid panel appreciated. Atorvastatin 80 mg daily, Plavix 75 mg daily. Decrease dose of BuSpar to 7.5 mg daily. Decrease gabapentin to 300 3 times daily. Bilateral carotid artery disease: Appreciated on CTA. Continue with Plavix and statin for now. Most likely patient will need to follow-up with Dr. Esposito as an outpatient for further intervention. ELVIN: Secondary dehydration. IV fluid as above. Medical reconciliation done for nephrotoxic drugs. Monitor daily for now. Lung nodule: Seen on CT head. We will do CT chest with contrast. Type 2 diabetes mellitus: Insulin sliding scale at medium dose protocol before meals and at bedtime. Lantus 10 units nightly. Atrial fibrillation with rapid ventricular response: Rate controlled. Continue with Coreg. Eliquis for anticoagulation Hematuria: Most likely traumatic. Continue with Alex catheter and monitor. Once clearing up can DC Alex catheter. Hypertension: Goal blood pressure less than 140/90 mmHg with mean over 65. Continue with home dose of Coreg and amlodipine. Orthostatic as above. COPD: Not in exacerbation. DNR/DNI. NPO. Cardiac carb consistent diet postoperatively. Heparin 5000 every 12 for DVT prophylaxis for now. Switch to Eliquis once okay with surgery. Protonix for PUD prophylaxis Plan for day: Continue with physical therapy, out and out cigar maker hand. Continue to monitor urine output and hematuria. DC Alex once clearing up. Start on IV fluids 75 cc/h for ELVIN. Discharge planning: Discharge to SNF. Awaiting acceptance and prior authorization. Attestations Medical Necessity Statement*: Requires further hospitalization for management of acute kidney injury in setting of bilateral ankle fracture, post-ORIF, syncope on reevaluation while safe discharge planning discharge Time Spent in Patient Care: Greater than 35 minutes Coding Level of Care Code Acute Film Projector Operator for [facility] Fwd Diagnoses Bilateral ankle fractures S82.891A; S82.892A Encounter type: initial encounter Fracture type: closed Pre-syncope R55 Carotid arterial disease I77.9 Fall W19.XXXA Encounter type: initial encounter Afib I48.20 Atrial fibrillation type: unspecified chronic Diabetes type 2, controlled E11.9; Z79.4 Diabetes mellitus retirement insulin use: with terminal carman use Diabetes mellitus complication status: without complication Diastolic heart failure I50.30
--- NOTE | 2021-07-09 14:37 | CTR_ITS ---
PROCEDURE INFORMATION: Exam: CT Chest Without Contrast; Diagnostic Exam date and time: 07/09/2021 3:12 PM Age: 75 years old Clinical indication: Abnormal findings; Abnormal radiologic exam of lung or chest; Patient HX: Spiculated chelsie nodule seen on cta h/n; Additional info: Lung nodule under evaluation TECHNIQUE: Imaging protocol: Diagnostic computed tomography of the chest without contrast. Sagittal and coronal reformatted images were created and reviewed. Radiation optimization: All CT scans at this facility use at least one of these dose optimization techniques: automated exposure control; mA and/or kV adjustment per patient size (includes targeted exams where dose is matched to clinical indication); or iterative reconstruction. COMPARISON: CT angio headneck* [id number] 07/06/2021 11:11 AM RADIATION DOSE METRICS: Total DLP (mGy-cm): 954.92 FINDINGS: Limitations: Evaluation of the mediastinum and vasculature is limited without intravenous contrast. Trachea: Tracheobronchial structures are patent. Lungs: Dependent atelectasis in the lungs bilaterally. Focal ground-glass opacification in the right lower lobe suspicious for pneumonitis. Noncalcified nodule with mildly spiculated margins in the posterior left upper lobe adjacent to aortic arch. This has an average measurement of 7 mm (series 3, image 23). Pleural spaces: No pneumothorax. No pleural effusion. Heart: Mild enlargement of the heart. Moderate atherosclerotic calcification in the coronary arteries. Calcification of the aortic valve. Esophagus: The esophagus is unremarkable. Mediastinal space: No mediastinal hematoma. No pneumomediastinum. Aorta: Moderate atherosclerotic changes in the visualized arteries. No evidence for aortic aneurysm. Lymph nodes: 2.9 x 1.9 cm right perihilar lymph node with focal internal calcification (series 2, image 33). No other enlarged lymph nodes. There are partially calcified lymph nodes in the mediastinum as well. Diaphragm: Small hiatal hernia. Liver: The visualized liver is unremarkable. Gallbladder and bile ducts: Increased density in the visualized gallbladder, likely representing vicarious excretion contrast. No dilatation of the visualized bile ducts. Pancreas: Mild atrophy of the visualized pancreatic parenchyma. Spleen: The spleen is unremarkable. Adrenal glands: Low density nodule in the right adrenal gland, consistent with an adenoma. This measures 2.0 x 2.2 cm (series 2, image 60). The left adrenal gland is unremarkable. Kidneys and ureters: Simple cysts in the visualized right and left kidneys. Largest on the right measures 3.7 cm (series 2, image 61). Largest on the left measures 5.7 cm (series 2, image 68). Focal cortical calcification in the visualized left kidney. Multiple indeterminate foci in the visualized right kidney. Hounsfield units show density greater than expected for simple fluid. The largest of these measures 5.1 x 5.9 cm (series 2, image 65). Stomach: Findings suggesting prior gastric sleeve procedure.Esophagus: The esophagus is unremarkable. Bones/joints: Multilevel degenerative changes of varying severity in the visualized spine. Moderate degenerative changes at the right and shoulders. Soft tissues: No acute abnormality in the extrathoracic soft tissues. CT/CT chest wo con [id number] IMPRESSION: 1. Dependent atelectasis in the lungs bilaterally. 2. Focal ground-glass opacification in the right lower lobe suspicious for pneumonitis. 3. Noncalcified nodule with mildly spiculated margins in the posterior left upper lobe adjacent to aortic arch. Highly suspicious nodule(s). Consider non-emergent PET/CT, or tissue sampling.(Reference: Abbie) 4. Enlarged right perihilar lymph node with focal internal calcification. Again, PET/CT is recommended given the suspicious left upper lobe nodule. 5. Right adrenal adenoma. 6. Multiple indeterminate hyperdense foci in the visualized right kidney. Recommend follow-up ultrasound on a nonemergent basis. 7. Small hiatal hernia. 8. Incidental/nonacute findings are listed in the report. COMMENTS: Consistent with the [employer]'s Incidental Findings Committee white paper (J Am Jack Radiol 2018): Any incidental renal lesion less than 1 cm or classified as too small to characterize, or any incidental cystic renal lesion characterized as simple-appearing, is likely benign. No follow-up imaging is recommended for these lesions per consensus recommendations based on imaging criteria. REFERENCES: Abbie Gaviria, et al. Guidelines for Management of Incidental Pulmonary Nodules Detected on CT Images: From the Fleischner Society 2017. Radiology. 2017;284(1):228-243.
[2021-07-09 17:05] LABS: Glucose Point of Care 159 mg/dL (70-110)
--- NOTE | 2021-07-09 18:40 | PC.NURSE ---
Patient resting in bed, VSS, AAOx4, minimal c/o pain controlled with oral pain medication. OOBTC during shift, lorenzo started having hematuria mid-shift, physician notified and orders recieved. No safety events during shift, no needs at this time. WIll report to oncoming nurse at shift change.
[2021-07-09] MEDS: insulin glargine 100 units/1 mL 10 UNIT SUBCUT (20:31)
[2021-07-09] MEDS: TRAMadol 50 mg Tablet PO (20:31)
[2021-07-09 21:08] LABS: Glucose Point of Care 256 mg/dL (70-110)
[2021-07-10] VITALS (12 sets, daily range): BP systolic 112–132; BP diastolic 56–75; PULSE 58–85; RESP 16–20; TEMP 36.6–36.7; O2SAT 93–99
[2021-07-10 04:04] LABS: Alanine Aminotransferase 33 U/L (0-33); Albumin Level 3.2 g/dL (3.5-5.2); Alkaline Phosphatase 40 IU/L (35-105); Aspartate Amino Transferase 46 U/L (0-32); Blood Urea Nitrogen 28 mg/dL (8-23); Calcium 8.5 mg/dL (8.5-10.5); Carbon Dioxide 26 mmol/L (22-29); Chloride 108 mmol/L (98-107); Globulin 2.2 g/dL (1.3-4.6); Glucose 121 mg/dL (65-115); Osmolality Calculated 297 mOsm/kg (285-295); Sodium 140 mmol/L (136-145); Total Bilirubin 0.3 mg/dL (0.15-1.2); Total Protein 5.4 g/dL (6.6-8.7)
[2021-07-10] MEDS: HYDROcodone-acetaminophen 5-325 mg Tablet 1 TAB PO ×2 (04:33→22:00)
--- NOTE | 2021-07-10 04:46 | PC.NURSE ---
i reported low pulse 58 to nurse
[2021-07-10 06:36] LABS: Glucose Point of Care 95 mg/dL (70-110)
[2021-07-10] MEDS: amlodipine 10 mg Tablet PO (09:01)
[2021-07-10] MEDS: fluoxetine 20 mg Capsule 40 MG PO (09:01)
[2021-07-10] MEDS: atorvastatin 40 mg Tablet 80 MG PO (09:01)
[2021-07-10] MEDS: montelukast sodium 10 mg Tablet PO (09:01)
[2021-07-10] MEDS: BuSPIRONE 10 mg Tablet 7.5 MG PO (09:01)
[2021-07-10] MEDS: hyDROXYzine 25 mg Capsule PO ×2 (09:01→17:58)
[2021-07-10] MEDS: pantoprazole DR 40 mg Tablet PO (09:01)
[2021-07-10] MEDS: gabapentin 300 mg Capsule PO ×3 (09:02→22:00)
[2021-07-10] MEDS: cholecalciferol (vitamin D3) 5,000 unit Tablet 5000 UNIT PO (09:02)
[2021-07-10] MEDS: clopidogrel 75 mg Tablet PO (09:02)
[2021-07-10] MEDS: apixaban 5 mg Tablet PO (09:02)
[2021-07-10] MEDS: carvedilol 25 mg Tablet PO ×2 (09:02→17:58)
[2021-07-10 11:11] LABS: Glucose Point of Care 198 mg/dL (70-110)
[2021-07-10] MEDS: insulin lispro 100 unit/1 mL SUBCUT ×3 (13:02→22:00)
[2021-07-10] MEDS: acetaminophen 325 mg Tablet 650 MG PO (13:32)
--- NOTE | 2021-07-10 14:04 | P.PN_ITS ---
Subjective Subjective: Documents overnight. Patient denies any new complaints. Working with physical therapy. Hematuria resolving. Has remained afebrile and hemodynamically stable. Medications: Reviewed: Yes Vitals/I&O/Wt Last Vital Signs Temp 98.0 F 07/10/21 12:00 Pulse 61 07/10/21 12:00 Resp 19 H 07/10/21 12:00 BP 132/70 07/10/21 12:00 Pulse Ox 95 07/10/21 12:00 07/09/21 07/10/21 07/10/21 22:59 06:59 14:59 Intake Total 1020 / 1560 1000 / 2560 240 / 240 Output Total 1350 / 1350 1200 / 2550 Balance -330 / 210 -200 / 10 240 / 240 Physical Exam Const: COMMON NORMALS: no acute distress and patient oriented x3 HENMT: COMMON NORMALS: normocephalic HEAD & SCALP: normocephalic Neck/C-Spine: COMMON NORMALS: no JVD Resp: COMMON NORMALS: normal respiratory effort, No retractions, No use of accessory muscles and clear to auscultation bilaterally AUSCULTATION: clear to auscultation bilaterally Cardio: COMMON NORMALS: no JVD, regular rate, regular rhythm, S1 normal heart sound present and S2 normal heart sound present RATE: regular rate RHYTHM: regular rhythm HEART SOUNDS: S1 normal heart sound present and S2 normal heart sound present GI: COMMON NORMALS: Normal to inspection, nondistended, normoactive bowel sounds present, Soft to palpation, non-tender, No hepatosplenomegaly present, no masses and no bruits PALPATION: Yes Soft to palpation and Yes No hepatosplenomegaly present Extremity: NARRATIVE EXTREMITY EXAM: Bilateral extremities casted Neuro: COMMON NORMALS: patient oriented x3 Psych: COMMON NORMALS: mental status grossly normal Data : 07/09/21 03:31 07/10/21 03:02 A&P Assessment and plan (1) Bilateral ankle fractures: Status: Acute Qualifiers: Encounter type: initial encounter Fracture type: closed Qualified Code(s): S82.891A - Other fracture of right lower leg, initial encounter for closed fracture; S82.892A - Other fracture of left lower leg, initial encounter for closed fracture (2) Pre-syncope: Status: Acute (3) Carotid arterial disease: Status: Acute (4) Fall: Status: Acute Qualifiers: Encounter type: initial encounter Qualified Code(s): W19.XXXA - Unspecified fall, initial encounter (5) Afib: Status: Acute Qualifiers: Atrial fibrillation type: unspecified chronic Qualified Code(s): I48.20 - Chronic atrial fibrillation, unspecified (6) Diabetes type 2, controlled: Status: Acute Qualifiers: Diabetes mellitus medical terminologist insulin use: with nursing home use Diabetes mellitus complication status: without complication Qualified Code(s): E11.9 - Type 2 diabetes mellitus without complications; 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 Post-ORIF day 2. Physical therapy as per orthopedic team. [place] 5 every 8 hours as needed for pain along with Tylenol tramadol 50 every 6 hours. Flu swab negative, Covid swab awaited. Restart IV fluids with normal saline at 75 cc/h for 1 bag. Syncope/presyncope: Most likely secondary to bilateral carotid artery disease. Telemetry. CTA head and neck shows bilateral carotid artery disease. 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 Echocardiogram results appreciated for EF of 83%, grade 3 diastolic dysfunction, mild LA dilatation. Orthostatic negative. A1c recently 6.9. Lipid panel appreciated. Atorvastatin 80 mg daily, Plavix 75 mg daily. Decrease dose of BuSpar to 7.5 mg daily. Decrease gabapentin to 300 3 times daily. Bilateral carotid artery disease: Appreciated on CTA. Continue with Plavix and statin for now. Most likely patient will need to follow-up with Dr. Esposito as an outpatient for further intervention. ELVIN: Stable. Hold off on further IV hydration for now. Continue with oral hydration Medical reconciliation done for nephrotoxic drugs. Monitor daily for now. Lung nodule: Seen on CT head. CT chest concerning for possibility of malignancy. Clinical follow-up as an outpatient. Type 2 diabetes mellitus: Insulin sliding scale at medium dose protocol before meals and at bedtime. Lantus 10 units nightly. Atrial fibrillation with rapid ventricular response: Rate controlled. Continue with Coreg. Eliquis for anticoagulation Hematuria: Most likely traumatic. Continue with Alex catheter and monitor. Once clearing up can DC Alex catheter. Hypertension: Goal blood pressure less than 140/90 mmHg with mean over 65. Continue with home dose of Coreg and amlodipine. Orthostatic as above. COPD: Not in exacerbation. DNR/DNI. 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 DC Alex catheter. Monitor for urine retention. 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 [facility] Diagnoses Bilateral ankle fractures S82.891A; S82.892A Encounter type: initial encounter Fracture type: closed Pre-syncope R55 Carotid arterial disease I77.9 Fall W19.XXXA Encounter type: initial encounter Afib I48.20 Atrial fibrillation type: unspecified chronic Diabetes type 2, controlled E11.9; Z79.4 Diabetes mellitus medical terminologist insulin use: with medical terminologist use Diabetes mellitus complication status: without complication Diastolic heart failure I50.30 Hematuria R31.9 Closed fracture of left distal fibula S82.832A Closed trimalleolar fracture of right ankle S82.851A
[2021-07-10 17:11] LABS: Glucose Point of Care 184 mg/dL (70-110)
[2021-07-10] MEDS: TRAMadol 50 mg Tablet PO (18:19)
[2021-07-10 21:11] LABS: Glucose Point of Care 195 mg/dL (70-110)
[2021-07-10] MEDS: insulin glargine 100 units/1 mL 10 UNIT SUBCUT (22:00)
[2021-07-11] VITALS (16 sets, daily range): BP systolic 116–169; BP diastolic 56–80; PULSE 64–76; RESP 15–20; TEMP 36.6–36.9; O2SAT 91–98
[2021-07-11] MEDS: TRAMadol 50 mg Tablet PO ×2 (04:51→22:06)
[2021-07-11] MEDS: clopidogrel 75 mg Tablet PO (08:12)
[2021-07-11] MEDS: BuSPIRONE 10 mg Tablet 7.5 MG PO (08:12)
[2021-07-11] MEDS: gabapentin 300 mg Capsule PO ×3 (08:12→21:15)
[2021-07-11] MEDS: pantoprazole DR 40 mg Tablet PO (08:12)
[2021-07-11] MEDS: montelukast sodium 10 mg Tablet PO (08:12)
[2021-07-11] MEDS: atorvastatin 40 mg Tablet 80 MG PO (08:12)
[2021-07-11] MEDS: cholecalciferol (vitamin D3) 5,000 unit Tablet 5000 UNIT PO (08:12)
[2021-07-11] MEDS: carvedilol 25 mg Tablet PO ×2 (08:12→17:07)
[2021-07-11] MEDS: hyDROXYzine 25 mg Capsule PO ×2 (08:12→17:07)
[2021-07-11] MEDS: fluoxetine 20 mg Capsule 40 MG PO (08:13)
[2021-07-11] MEDS: insulin lispro 100 unit/1 mL SUBCUT ×3 (08:13→21:15)
[2021-07-11] MEDS: amlodipine 10 mg Tablet PO (08:13)
[2021-07-11 09:56] LABS: Glucose Point of Care 105 mg/dL (70-110)
--- NOTE | 2021-07-11 11:42 | P.PN_ITS ---
Subjective Subjective: Patient was seen this morning, she continues to complain of pain in bilateral lower extremities, pain with ambulation, Vitals/I&O/Wt Last Vital Signs Temp 98.4 F 07/11/21 07:15 Pulse 73 07/11/21 08:55 Resp 18 07/11/21 08:55 BP 154/80 07/11/21 07:15 Pulse Ox 91 07/11/21 08:48 07/10/21 07/11/21 07/11/21 22:59 06:59 14:59 Intake Total 100 / 460 386 / 846 480 / 480 Output Total 1250 / 1250 750 / 2000 Balance -1150 / -790 -364 / -1154 480 / 480 Physical Exam Const: COMMON NORMALS: no acute distress and patient oriented x3 Resp: COMMON NORMALS: normal respiratory effort, No retractions, No use of accessory muscles and clear to auscultation bilaterally AUSCULTATION: clear to auscultation bilaterally Cardio: COMMON NORMALS: regular rate, regular rhythm, S1 normal heart sound present and S2 normal heart sound present RATE: regular rate RHYTHM: regular rhythm HEART SOUNDS: S1 normal heart sound present and S2 normal heart sound present GI: COMMON NORMALS: Normal to inspection, nondistended, normoactive bowel sounds present, Soft to palpation, non-tender and No hepatosplenomegaly present PALPATION: Yes Soft to palpation and Yes No hepatosplenomegaly present Extremity: NARRATIVE EXTREMITY EXAM: Bilateral lower extremities in a boot Neuro: COMMON NORMALS: patient oriented x3 Data : 07/09/21 03:31 07/10/21 03:02 A&P Assessment and plan (1) Bilateral ankle fractures: Status: Acute Qualifiers: Encounter type: initial encounter Fracture type: closed Qualified Code(s): S82.891A - Other fracture of right lower leg, initial encounter for closed fracture; S82.892A - Other fracture of left lower leg, initial encounter for closed fracture (2) Pre-syncope: Status: Acute (3) Carotid arterial disease: Status: Acute (4) Fall: Status: Acute Qualifiers: Encounter type: initial encounter Qualified Code(s): W19.XXXA - Unspecified fall, initial encounter (5) Afib: Status: Acute Qualifiers: Atrial fibrillation type: unspecified chronic Qualified Code(s): I48.20 - Chronic atrial fibrillation, unspecified (6) Diabetes type 2, controlled: Status: Acute Qualifiers: Diabetes mellitus correction insulin use: with correction use Diabetes m ellitus complication status: without complication Qualified Code(s): E11.9 - Type 2 diabetes mellitus without complications; Z79.4 - manager intermediate (current) use of insulin (7) Diastolic heart failure: Status: Acute (8) Hematuria: Status: Acute (9) Closed fracture of left distal fibula: Status: Acute (10) Closed trimalleolar fracture of right ankle: Status: Acute Plan Bilateral ankle fractures: Appreciate orthopedic recommendations. Post-ORIF Physical therapy as per orthopedic team. Switch to oxycodone 5/325 every 4 hours as needed for pain, tramadol 50 every 6 hours for breakthrough pain Flu swab negative, Covid swab awaited. Syncope/presyncope: Most likely secondary to bilateral carotid artery disease. Telemetry. CTA head and neck shows bilateral carotid artery disease. 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 Echocardiogram results appreciated for EF of 83%, grade 3 diastolic dysfunction, mild LA dilatation. Orthostatic negative. A1c recently 6.9. Lipid panel appreciated. Atorvastatin 80 mg daily, Plavix 75 mg daily. Decrease dose of BuSpar to 7.5 mg daily. Decrease gabapentin to 300 3 times daily. Bilateral carotid artery disease: Appreciated on CTA. Continue with Plavix and statin for now. Most likely patient will need to follow-up with Dr. Esposito as an outpatient for further intervention. ELVIN: Stable. Hold off on further IV hydration for now. Continue with oral hydration Medical reconciliation done for nephrotoxic drugs. Monitor daily for now. Lung nodule: Seen on CT head. CT chest concerning for possibility of malignancy. Clinical follow-up as an outpatient. Type 2 diabetes mellitus: Insulin sliding scale at medium dose protocol before meals and at bedtime. Lantus 10 units nightly. Atrial fibrillation with rapid ventricular response: Rate controlled. Continue with Coreg. Eliquis for anticoagulation Hematuria: Most likely traumatic. Resolved Continue with Alex catheter and monitor. Once clearing up can DC Alex catheter. Hypertension: Goal blood pressure less than 140/90 mmHg with mean over 65. Continue with home dose of Coreg and amlodipine. Orthostatic as above. COPD: Not in exacerbation. DNR/DNI. 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 DC Alex catheter. Monitor for urine retention. 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
[2021-07-11] MEDS: oxyCODONE-APAP 5-325 mg Tablet 1 TAB PO ×2 (13:11→19:38)
[2021-07-11 17:24] LABS: SARS Covid-2 Antigen Negative (Negative)
[2021-07-11] MEDS: apixaban 5 mg Tablet PO (17:59)
[2021-07-11 21:13] LABS: Glucose Point of Care 209 mg/dL (70-110)
[2021-07-11] MEDS: insulin glargine 100 units/1 mL 10 UNIT SUBCUT (21:16)
[2021-07-11] MEDS: acetaminophen 325 mg Tablet 650 MG PO (22:06)
[2021-07-12] VITALS (9 sets, daily range): BP systolic 119–140; BP diastolic 61–72; PULSE 60–70; RESP 16–18; TEMP 36.6–36.9; O2SAT 95–98
[2021-07-12] MEDS: oxyCODONE-APAP 5-325 mg Tablet 1 TAB PO (05:01)
[2021-07-12 06:34] LABS: Glucose Point of Care 101 mg/dL (70-110)
[2021-07-12] MEDS: carvedilol 25 mg Tablet PO (08:30)
[2021-07-12] MEDS: montelukast sodium 10 mg Tablet PO (08:30)
[2021-07-12] MEDS: atorvastatin 40 mg Tablet 80 MG PO (08:30)
[2021-07-12] MEDS: cholecalciferol (vitamin D3) 5,000 unit Tablet 5000 UNIT PO (08:30)
[2021-07-12] MEDS: clopidogrel 75 mg Tablet PO (08:31)
[2021-07-12] MEDS: pantoprazole DR 40 mg Tablet PO (08:31)
[2021-07-12] MEDS: apixaban 5 mg Tablet PO (08:31)
[2021-07-12] MEDS: fluoxetine 20 mg Capsule 40 MG PO (08:31)
[2021-07-12] MEDS: amlodipine 10 mg Tablet PO (08:31)
[2021-07-12] MEDS: hyDROXYzine 25 mg Capsule PO (08:31)
[2021-07-12] MEDS: BuSPIRONE 10 mg Tablet 7.5 MG PO (08:31)
[2021-07-12] MEDS: gabapentin 300 mg Capsule PO (08:31)
[2021-07-12 10:00] LABS: Glucose Point of Care 149 mg/dL (70-110)
[2021-07-12 10:01] LABS: Glucose Point of Care 210 mg/dL (70-110)
[2021-07-12] MEDS: insulin lispro 100 unit/1 mL SUBCUT (11:51)
--- NOTE | 2021-07-12 12:38 | PM.DCS ---
Discharge Providers Date of Admission: 07/06/21 03:53 Date of Discharge: July 12, 2021 Attending Provider at Admission: Vimal Rosenthal MD Attending Provider at Discharge: Vimal Rosenthal MD Primary Care Provider: ALPHONSO Oliver Diagnoses at Discharge Discharge Diagnosis (1) Bilateral ankle fractures: Status: Acute Qualifiers: Encounter type: initial encounter Fracture type: closed Qualified Code(s): S82.891A - Other fracture of right lower leg, initial encounter for closed fracture; S82.892A - Other fracture of left lower leg, initial encounter for closed fracture (2) Pre-syncope: Status: Acute (3) Carotid arterial disease: Status: Acute (4) Fall: Status: Acute Qualifiers: Encounter type: initial encounter Qualified Code(s): W19.XXXA - Unspecified fall, initial encounter (5) Afib: Status: Acute Qualifiers: Atrial fibrillation type: unspecified chronic Qualified Code(s): I48.20 - Chronic atrial fibrillation, unspecified (6) Diabetes type 2, controlled: Status: Acute Qualifiers: Diabetes mellitus medical terminologist insulin use: with medical terminologist use Diabetes mellitus complication status: without complication Qualified Code(s): E11.9 - Type 2 diabetes mellitus without complications; 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 (7) Diastolic heart failure: Status: Acute (8) Hematuria: Status: Acute (9) Closed fracture of left distal fibula: Status: Acute (10) Closed trimalleolar fracture of right ankle: Status: Acute Reason for Visit Reason for Visit: BILAT KNEE & ANKLE PAIN POST FALL, DIZZY Hospital Course Hospital Course Rodri New is a 75 year old female with a past medical history of asthma, history of chronic lower back pain status post laminectomy, history of bilateral extremity edema, history of diastolic CHF, history of hyperlipidemia, history of insulin-dependent type 2 diabetes mellitus, COPD, atrial fibrillation on Eliquis, who presents [facility] for dizziness and fall. Patient was admitted to [facility] for bilateral ankle fractures, status post open reduction internal fixation, follow-up with Dr. Perez as outpatient, discharged to intermediate facility, discharged on oxycodone to be used sparingly for pain control and during physical therapy. On admission she was found to have syncopal and presyncopal symptoms, most likely second to bilateral carotid artery disease, also found to have an old lacunar infarct in the thalamus, discharged on high-dose statin, Plavix, she already takes Eliquis for history of atrial fibrillation, follow with Dr. Esposito as outpatient. She was also found to have a left upper lobe lung nodule, with spiculated appearance, history of smoking, follow with Dr. Bravo for further evaluation and intervention. Physical Exam Const: COMMON NORMALS: no acute distress and patient oriented x3 Resp: COMMON NORMALS: normal respiratory effort, No retractions, No use of accessory muscles and clear to auscultation bilaterally AUSCULTATION: clear to auscultation bilaterally Cardio: COMMON NORMALS: regular rate, regular rhythm, S1 normal heart sound present and S2 normal heart sound present RATE: regular rate RHYTHM: regular rhythm HEART SOUNDS: S1 normal heart sound present and S2 normal heart sound present GI: COMMON NORMALS: Normal to inspection, nondistended, normoactive bowel sounds present, Soft to palpation, non-tender and No hepatosplenomegaly present PALPATION: Yes Soft to palpation and Yes No hepatosplenomegaly present Extremity: COMMON NORMALS: no pedal edema Neuro: COMMON NORMALS: patient oriented x3 Psych: COMMON NORMALS: mental status grossly normal Discharge Data Studies Completed and Pending Completed Studies During Hospitalization Category Date Time Status CT ankle RT wo con* [id number] Urgent Cat Scan 07/05/21 21:[address] chest wo con [id number] Routine Cat Scan 07/09/21 14:[address] head wo con* [id number] Urgent Cat Scan 07/05/21 22:[address] lumbar spine wo con* [id number] Urgent Cat Scan 07/05/21 19:02 Completed CTA head neck [CT angio headneck* [id number]] Routine Cat Scan 07/06/21 10:33 Completed XR ankle LT min 3V* [id number] Routine Exams 07/07/21 Completed XR ankle LT min 3V* [id number] Stat Exams 07/05/21 19:30 Completed XR ankle RT min 3V* [id number] Stat Exams 07/05/21 19:30 Completed XR knee LT 3V* [id number] Stat Exams 07/05/21 19:30 Completed XR knee RT 3V* [id number] Stat Exams 07/05/21 19:30 Completed XR pelvis 1-2V* [id number] Stat Exams 07/05/21 19:30 Completed MR head wo con* [id number] Routine MRI 07/07/21 10:00 Completed CV carotid duplex BI* [id number] Urgent Ultrasound 07/05/21 23:01 Completed CV. echo complete* [id number] Routine Ultrasound 07/06/21 02:47 Completed Radiology Impressions Lumbar Spine CT 07/05/21 19:02 IMPRESSION: 1. Negative for acute lumbar spine fracture. 2. Multiple bilateral renal cortical lesions of variable density. Some lesions are non simple in appearance. Recommend follow-up outpatient renal ultrasound for surveillance. COMMENTS: Consistent with the [place] [employer]'s Incidental Findings Committee white paper (J Am Jack Radiol 2018): Any incidental renal lesion less than 1 cm or classified as too small to characterize, or any incidental cystic renal lesion characterized as simple-appearing, is likely benign. No follow-up imaging is recommended for these lesions per consensus recommendations based on imaging criteria. Knee X-Ray 07/05/21 19:30 IMPRESSION: Negative for acute fracture. Pelvis X-Ray 07/05/21 19:30 IMPRESSION: Negative pelvis. No acute fracture. Ankle CT 07/05/21 21:42 IMPRESSION: 1. Displaced horizontal medial malleolar fracture. 2. Displaced intra-articular fracture involving the lateral aspect of the tibial plafond. 3. Hairline nondisplaced intra-articular fracture of the posterior malleolus. Head CT 07/05/21 22:30 IMPRESSION: Negative for acute intracranial hemorrhage. Carotid Doppler Study 07/05/21 23:01 IMPRESSION: 1. Moderate severity left internal carotid artery stenosis estimated 50-69%, although difficult to characterize secondary to tortuosity. 2. At least mild severity stenosis of proximal right internal carotid artery approaching 50%. 3. Recommend CTA neck correlation. REFERENCES: SRU CRITERIA. The degree of internal carotid artery stenosis is based on criteria defined by the Society of Radiologists in Ultrasound (SRU). Normal is no stenosis. Mild is less than 50% stenosis. Moderate is 50-69% stenosis. Severe is greater than 69% stenosis to near occlusion. Near occlusion is a markedly narrowed lumen. Total occlusion is no detectable patent lumen. Head/Neck CTA 07/06/21 10:33 IMPRESSION: 1. Spiculated nodule LEFT upper lobe measuring 8 mm adjacent to the aortic arch. This has a suspicious appearance and recommend further evaluation with dedicated chest CT and/or PET CT. 2. Unchanged chronic lacunar infarct in the RIGHT thalamus. 3. Unremarkable intracranial CTA. No flow-limiting stenosis. 4. RIGHT ICA stenosis measures 64% 5. LEFT ICA stenosis measures 76% 6. Codominant and patent vertebral arteries bilaterally. Ankle X-Ray 07/07/21 00:00 Impression: Internal fixation of left ankle fracture. Head MRI 07/07/21 10:00 IMPRESSION: 1. No acute infarct or hemorrhage. 2. Atrophy and chronic microvascular ischemic changes. 3. Prior lacunar infarct RIGHT thalamus. Chest CT 07/09/21 14:37 IMPRESSION: 1. Dependent atelectasis in the lungs bilaterally. 2. Focal ground-glass opacification in the right lower lobe suspicious for pneumonitis. 3. Noncalcified nodule with mildly spiculated margins in the posterior left upper lobe adjacent to aortic arch. Highly suspicious nodule(s). Consider non-emergent PET/CT, or tissue sampling.(Reference: Abbie) 4. Enlarged right perihilar lymph node with focal internal calcification. Again, PET/CT is recommended given the suspicious left upper lobe nodule. 5. Right adrenal adenoma. 6. Multiple indeterminate hyperdense foci in the visualized right kidney. Recommend follow-up ultrasound on a nonemergent basis. 7. Small hiatal hernia. 8. Incidental/nonacute findings are listed in the report. COMMENTS: Consistent with the [place] [employer]'s Incidental Findings Committee white paper (J Am Jack Radiol 2018): Any incidental renal lesion less than 1 cm or classified as too small to characterize, or any incidental cystic renal lesion characterized as simple-appearing, is likely benign. No follow-up imaging is recommended for these lesions per consensus recommendations based on imaging criteria. REFERENCES: Abbie Gaviria, et al. Guidelines for Management of Incidental Pulmonary Nodules Detected on CT Images: From the Fleischner Society 2017. Radiology. 2017;284(1):228-243. Laboratory Results WBC 9.3 10^3/uL (4.0-10.0) 07/09/21 03:31 RBC 3.55 10^6/uL (4.1-5.3) L 07/09/21 03:31 Hgb 10.4 g/dL (11.5-15.3) L 07/09/21 03:31 Hct 32.9 % (37.0-47.0) L 07/09/21 03:31 MCV 92.7 fl (81-99) 07/09/21 03:31 MCH 29.3 pg (28.0-34.0) 07/09/21 03: MCHC 31.6 g/dL (30.0-36.0) 07/09/21 03: RDW 13.4 % (12.1-15.1) 07/09/21 03:31 Plt Count 215 10^3/cmm (130-400) 07/09/21 03:31 MPV 11.1 fL (7.4-10.4) H 07/09/21 03:31 Neut % (Auto) 73.9 % 07/09/21 03: Lymph % (Auto) 12.6 % 07/09/21 03:31 Miner % (Auto) 12.3 % 07/09/21 03:31 Eos % (Auto) 0.4 % 07/09/21 03:31 Baso % (Auto) 0.4 % 07/09/21 03: Neut # (Auto) 6.83 10^3/uL (1.8-7.7) 07/09/21 03: Lymph # (Auto) 1.2 10^3/uL (0.8-4.8) 07/09/21 03:31 [place]er # (Auto) 1.1 10^3/uL (0.2-0.9) H 07/09/21 03:31 Eos # (Auto) 0.0 10^3/uL (0.0-0.8) 07/09/21 03: Baso # (Auto) 0.0 10^3/uL (0.0-0.1) 07/09/21 03: Nucleated RBC % (auto) 0 % 07/09/21 03: Nucleated RBCs # 0.0 /100WBC 07/09/21 03: PT 15.30 SECONDS (12.1-14.9) H 07/05/21 19:40 INR 1.17 (0.8-1.2) 07/05/21 19:40 Sodium 140 mmol/L (136-145) 07/10/21 03:02 Potassium 4.0 mmol/L (3.5-5.1) 07/10/21 03:02 Chloride 108 mmol/L (98-107) H 07/10/21 03:02 Carbon Dioxide 26 mmol/L (22-29) 07/10/21 03:02 Anion Gap 10.0 (5-19) 07/10/21 03:02 BUN 28 mg/dL (8-23) H 07/10/21 03:02 Creatinine 1.1 mg/dL (0.5-0.9) H 07/10/21 03:02 GFR Calculation Not Reportable 07/10/21 03:02 Glucose 121 mg/dL (65-115) H 07/10/21 03:02 POC Glucose 101 mg/dL (70-110) 07/12/21 06:25 Calculated Osmolality 297 mOsm/kg (285-295) H 07/10/21 03:02 Calcium 8.5 mg/dL (8.5-10.5) 07/10/21 03:02 Phosphorus 4.7 mg/dL (2.5-4.5) H 07/08/21 03:07 Magnesium 2.0 mg/dL (1.7-2.3) 07/08/21 03:07 Total Bilirubin 0.3 mg/dL (0.15-1.2) 07/10/21 03:02 AST 46 U/L (0-32) H 07/10/21 03:02 ALT 33 U/L (0-33) 07/10/21 03:02 Alkaline Phosphatase 40 IU/L (35-105) 07/10/21 03:02 Troponin T Baseline 20 ng/L (0-10) H 07/06/21 14:15 Troponin T 120 Minute 20.38 ng/L (0-10) H 07/06/21 16:02 Delta Troponin T 0.38 ABS# (0-10) 07/06/21 16:02 Troponin T Hi Sens 6Hr 22.01 ng/L (0-10) H 07/06/21 20:22 Troponin T Hi Sens 6Hr Delta 2.01 ng/L (0-12) 07/06/21 20:22 Total Protein 5.4 g/dL (6.6-8.7) L 07/10/21 03:02 Albumin 3.2 g/dL (3.5-5.2) L 07/10/21 03:02 Globulin 2.2 g/dL (1.3-4.6) 07/10/21 03:02 Triglycerides 106 mg/dL (0-150) 07/07/21 02:37 Cholesterol 127 mg/dL (0-200) 07/07/21 02:37 LDL Cholesterol, Calc 42 mg/dL (50-129) L 07/07/21 02:37 Total VLDL Cholesterol 21 mg/dL (0-30) 07/07/21 02:37 HDL Cholesterol 64 mg/dL (60-100) 07/07/21 02:37 Cholesterol/HDL Ratio 1.98 mg/dL (0.0-4.40) 07/07/21 02:37 TSH 2.08 uIU/mL (0.27-4.20) 07/05/21 19:40 Urine Color Yellow (Yellow) 07/05/21 23:59 Urine Appearance Clear (CLEAR) 07/05/21 23:59 Urine pH 7 (5-7) 07/05/21 23:59 Ur Specific [place] 1.005 (1.005-1.030) 07/05/21 23:59 Urine Protein Neg (Negative) 07/05/21 23:59 Urine Glucose (UA) Norm (Normal) 07/05/21 23:59 Urine Ketones Negative (Negative) 07/05/21 23:59 Urine Blood Neg (Negative) 07/05/21 23:59 Urine Nitrate Negative (Negative) 07/05/21 23:59 Urine Bilirubin Neg (Negative) 07/05/21 23:59 Urine Urobilinogen Norm mg/dL (Negative) 07/05/21 23:59 Ur Leukocyte Esterase Negative (Negative) 07/05/21 23:59 Coronavirus 229E (PCR) Not detected (NOT DETECT) 07/07/21 10:38 Influenza Type A Ag Negative (Negative) 07/07/21 10:38 Influenza Type B Ag Negative (Negative) 07/07/21 10:38 SARS-CoV-2 (PCR) Not detected (NOT DETECT) 07/07/21 10:38 SARS-CoV-2 Ag (Rapid) Negative (Negative) 07/11/21 17:10 Vitals Last Vital Signs Temp 97.9 F 07/12/21 11:23 Pulse 60 07/12/21 11:23 Resp 17 07/12/21 11:23 BP 119/61 07/12/21 11:23 Pulse Ox 96 07/12/21 11:23 Discharge Plan Discharge Patient Disposition: Xfer SNF Condition: Stable Prescriptions: New atorvastatin 40 mg Tablet 80 mg PO DAILY 30 Days Qty: 30 0RF carvedilol 25 mg Tablet 25 mg PO BIDWM 30 Days Qty: 60 0RF clopidogrel 75 mg Tablet 75 mg PO DAILY 30 Days Qty: 30 0RF oxycodone-acetaminophen 5-325 mg Tablet 1 tab PO Q6H PRN (Reason: Moderate Pain) 7 Days Qty: 28 0RF amlodipine 10 mg Tablet 10 mg PO DAILY 30 Days Qty: 30 0RF buspirone 10 mg Tablet 7.5 mg PO DAILY 30 Days Qty: 3 0RF gabapentin 300 mg Capsule 300 mg PO TID 30 Days Qty: 90 0RF montelukast 10 mg Tablet 10 mg PO DAILY 3 Days Qty: 30 0RF fluoxetine 20 mg Capsule 40 mg PO DAILY 30 Days Qty: 30 0RF Continued furosemide 20 mg tablet 10 mg PO QAM 90 Days Qty: 45 1RF B-complex with vitamin C [Super B Complex-Vitamin C] Tablet 1 tab PO DAILY 0RF multivitamin Tablet 1 tab PO QAM 0RF cholecalciferol (vitamin D3) 125 mcg (5,000 unit) capsule 125 mcg PO QAM 0RF calcium carbonate [Calcium 600] 600 mg calcium (1,500 mg) tablet 600 mg PO DAILY 0RF diclofenac sodium [Arthritis Pain (diclofenac)] 1 % gel 2 g topical QID PRN (Reason: Pain) 0RF Rx Instructions: apply to single elbow, wrist or hand; for hand includes palm/fingers/back of hand albuterol sulfate [ProAir HFA] 90 mcg/actuation HFA aerosol inhaler 2 puff inhalation Q6H PRN (Reason: bronchospasm) Qty: 8.5 5RF Breo Ellipta 100-25 mcg/dose blister with device 1 inh inhalation DAILY Qty: 60 0RF (DME) FreeStyle Ericka 14 Day [place] Misc See Rx Instructions .Route Qty: 6 0RF Rx Instructions: Every 2 weeks FreeStyle Ericka 14 Day Sensor Kit See Rx Instructions .ROUTE .COMPLEX Qty: 6 0RF Dose Instruction: APPLY SENSOR TO SKIN EVERY 2 WEEKS DIRECTED Rx Instructions: APPLY SENSOR TO SKIN EVERY 2 WEEKS DIRECTED Eliquis 5 mg tablet 5 mg PO BID 0RF acetaminophen 500 mg Tablet 500 mg PO Q6H PRN (Reason: Pain) 0RF potassium chloride 20 mEq/15 mL liquid 20 meq PO QAM 0RF Humulin R Regular U-100 Insuln 100 unit/mL Solution 4 - 10 unit SUBCUT DAILY PRN (Reason: blood sugar) 0RF omeprazole 20 mg capsule,delayed release(DR/EC) 20 mg PO QAM 0RF montelukast 10 mg tablet 10 mg PO BEDTIME 0RF hydroxyzine HCl 25 mg tablet 25 mg PO BID 0RF fiber Capsule 1 cap PO BEDTIME 0RF melatonin 10 mg Tablet 10 mg PO BEDTIME 0RF Changed Humulin 70/30 U-100 Insulin 100 unit/mL (70-30) suspension 10 unit SUBCUT BID Qty: 0 0RF Discontinued hydrocodone-acetaminophen 7.5-325 mg tablet 1 tab PO BID PRN (Reason: pain) 30 Days Qty: 60 0RF fluoxetine 40 mg capsule 40 mg PO QAM 0RF carvedilol 25 mg tablet 25 mg PO BID 0RF gabapentin 600 mg tablet 600 mg PO TID 0RF amlodipine 10 mg tablet 10 mg PO QAM 0RF buspirone 7.5 mg tablet 7.5 mg PO BID 0RF rosuvastatin 20 mg tablet 20 mg PO BEDTIME 0RF Discharge Orders: Discharge Order (Routine); Ordered 07/12/21 Ordered By: Vimal Rosenthal Referrals: [facility] [Outside] Cara Arauz MD [Physician] - 2 weeks Milvia Simmons FNP [Primary Care Provider] - Neo Esposito MD [Physician] - 1 week (bilateral carotid stenosis) Thomsa Bravo MD [Physician] - 1 week (pulmonary nodule) Discharge Diet: Regular Discharge Activity: Resume usual activity Activity Restrictions/Additional Instructions: Weightbearing as tolerated left lower extremity in cam walker. Touchdown weightbearing right lower extremity in cam walker. You may remove the boots for short periods of time when patient is not ambulating. Elevation to bilateral lower extremities -follow up with jennifer in 1 week for pulmonary nodule -follow up with dwain in 1 week for carotid stenosis -take oxycodone sparingly for pain, as needed, reserve for physical therapy -Take Plavix as prescribed, statin as prescribed Discharge Attestations Time Spent in Discharge Care*: less than 30 min Quality Metrics Clinical Quality Measures [ No reported AMI, CVA or VTE this stay] Coding Level of Care Code Acute Chg FW DC note Diagnoses Bilateral ankle fractures S82.891A; S82.892A Encounter type: initial encounter Fracture type: closed Pre-syncope R55 Carotid arterial disease I77.9 Fall W19.XXXA Encounter type: initial encounter Afib I48.20 Atrial fibrillation type: unspecified chronic Diabetes type 2, controlled E11.9; Z79.4 Diabetes mellitus medical terminologist insulin use: with halfway use Diabetes mellitus complication status: without complication Diastolic heart failure I50.30 Hematuria R31.9 Closed fracture of left distal fibula S82.832A Closed trimalleolar fracture of right ankle S82.851A
--- NOTE | 2021-07-12 13:45 | PC.NURSE ---
THIS NURSE CALLED REPORT TO YANN AT [facility].
[2021-07-12] MEDS: TRAMadol 50 mg Tablet PO (13:48)
--- NOTE | 2021-07-12 14:55 | PC.SOCIAL ---
Per Dr Ang for the Humulin R we can have the pharmacy dispensing the medication use whatever short acting they have on formulary at mild sliding scale. To be taken PRN with meals and at HS per low dose sliding scale per Dr Rosenthal Notified Dot at [facility]
[2021-07-12 18:24] LABS: Glucose Point of Care 204 mg/dL (70-110)
== END 2021-07-12 14:11 | disposition skilled nursing facility (03) | DRG 493 ==
LOC: ER 23:52 → ER IP 07-06 02:07 → MEDSURG 07-06 06:39
PROVIDERS: Specialist; Student in an Organized Health Care Education/Training Program; Admitting Provider Family Medicine; Emergency Provider Emergency Medicine; PCP Registered Nurse; Visit Provider Family Medicine
PROC: 0QSG04Z Reposition Right Tibia with Internal Fixation Device, Open Approach (ICD-10-PCS; principal; 2021-07-07 12:30)
DX: S82.851A Displaced trimalleolar fracture of right lower leg, initial encounter for closed fracture (principal); I50.32 Chronic diastolic (congestive) heart failure; S82.65XA Nondisplaced fracture of lateral malleolus of left fibula, initial encounter for closed fracture; W01.0XXA Fall on same level from slipping, tripping and stumbling without subsequent striking against object, initial encounter; G89.29 Other chronic pain; I48.91 Unspecified atrial fibrillation; F41.9 Anxiety disorder, unspecified; J44.9 Chronic obstructive pulmonary disease, unspecified; E11.42 Type 2 diabetes mellitus with diabetic polyneuropathy; K21.9 Gastro-esophageal reflux disease without esophagitis; Z79.51 Long term (current) use of inhaled steroids; Z79.01 Long term (current) use of anticoagulants; Z79.4 Long term (current) use of insulin; M54.50 Low back pain, unspecified; M21.379 Foot drop, unspecified foot; Z86.73 Personal history of transient ischemic attack (TIA), and cerebral infarction without residual deficits; E78.5 Hyperlipidemia, unspecified; Z87.891 Personal history of nicotine dependence; R91.8 Other nonspecific abnormal finding of lung field; I65.23 Occlusion and stenosis of bilateral carotid arteries; Z66 Do not resuscitate; M17.0 Bilateral primary osteoarthritis of knee; R31.9 Hematuria, unspecified
CPT/HCPCS: 36415; 36416; 64450; 70450; 70496; 70498; 70551; 71250; 72131; 72170; 73562; 73610; 73700; 76000; 76942; 80053; 80061; 81003; 82962; 83735; 84100; 84443; 84484; 85025; 85610; 87426; 87635; 87804; 93005; 93306; 93880; 94664; 96361; 96365; 96367; 96372; 96375; 97110; 97161; 97165; 97530; 97535; 97760; 99214; 99285; C1713; J1100; J1630; J1644; J1815 ×2; J2270; J2405; J2704; J2795; J3010; J3370; J3490; J7030; J7050; L4361; Q9967

== ENCOUNTER → 2021-07-07 | Day surgery (SDC) | payer MEDICARE, SELFPAY | PROVIDERS: PCP Registered Nurse; Visit Provider Specialist | DX: Z01.818 Encounter for other preprocedural examination (principal) | CPT/HCPCS: J1100; J2795 ==

== ENCOUNTER → 2021-07-25 08:41 | Outpatient (BNVA) | payer OTHER, MEDICARE, SELFPAY | PROVIDERS: PCP Registered Nurse; Visit Provider Specialist | DX: Z98.890 Other specified postprocedural states (principal); X58.XXXA Exposure to other specified factors, initial encounter; Z87.891 Personal history of nicotine dependence; S82.832A Other fracture of upper and lower end of left fibula, initial encounter for closed fracture; S82.851D Displaced trimalleolar fracture of right lower leg, subsequent encounter for closed fracture with routine healing; S82.832D Other fracture of upper and lower end of left fibula, subsequent encounter for closed fracture with routine healing; X58.XXXD Exposure to other specified factors, subsequent encounter | CPT/HCPCS: 27786; 73610; 97760; L1902 ==

== ENCOUNTER 2021-07-25 10:17 | Outpatient (CLI) | payer MEDICARE, SELFPAY | END 2021-07-25 10:18 | disposition home or self-care (01) | LOC: SPT 10:17 | PROVIDERS: PCP Registered Nurse; Visit Provider Specialist | DX: S82.851D Displaced trimalleolar fracture of right lower leg, subsequent encounter for closed fracture with routine healing (principal); S82.832D Other fracture of upper and lower end of left fibula, subsequent encounter for closed fracture with routine healing; X58.XXXD Exposure to other specified factors, subsequent encounter | CPT/HCPCS: 97760; L1902 ==

== ENCOUNTER → 2021-07-29 08:55 | Outpatient (BNVA) | payer MEDICARE, SELFPAY | PROVIDERS: PCP Registered Nurse; Visit Provider Thoracic Surgery (Cardiothoracic Vascular Surgery) | DX: I77.9 Disorder of arteries and arterioles, unspecified (principal); R91.1 Solitary pulmonary nodule; R91.8 Other nonspecific abnormal finding of lung field; Z87.891 Personal history of nicotine dependence | CPT/HCPCS: 99203 ==

== ENCOUNTER → 2021-08-15 14:51 | Outpatient (BNVA) | payer OTHER, MEDICARE, SELFPAY | PROVIDERS: PCP Registered Nurse; Visit Provider Specialist | DX: Z98.890 Other specified postprocedural states (principal); S82.851D Displaced trimalleolar fracture of right lower leg, subsequent encounter for closed fracture with routine healing; S82.832D Other fracture of upper and lower end of left fibula, subsequent encounter for closed fracture with routine healing; Z87.891 Personal history of nicotine dependence; X58.XXXD Exposure to other specified factors, subsequent encounter | CPT/HCPCS: 73610 ==

== ENCOUNTER → 2021-08-31 14:57 | Outpatient (BNVA) | payer MEDICARE, SELFPAY | PROVIDERS: PCP Registered Nurse; Visit Provider Nurse Practitioner Family | DX: I48.20 Chronic atrial fibrillation, unspecified (principal); E78.5 Hyperlipidemia, unspecified; K21.9 Gastro-esophageal reflux disease without esophagitis; E11.9 Type 2 diabetes mellitus without complications; Z79.4 Long term (current) use of insulin; Z98.890 Other specified postprocedural states; R60.9 Edema, unspecified | CPT/HCPCS: 99213; 99214 ==

== ENCOUNTER → 2021-09-14 15:12 | Outpatient (BNVA) | payer MEDICARE, SELFPAY | PROVIDERS: PCP Registered Nurse; Visit Provider Specialist | DX: S82.851D Displaced trimalleolar fracture of right lower leg, subsequent encounter for closed fracture with routine healing (principal); S82.832D Other fracture of upper and lower end of left fibula, subsequent encounter for closed fracture with routine healing; X58.XXXD Exposure to other specified factors, subsequent encounter | CPT/HCPCS: 73610 ==

== ENCOUNTER → 2021-09-20 12:26 | Outpatient (BNVA) | payer MEDICARE, SELFPAY | PROVIDERS: PCP Registered Nurse; Visit Provider Internal Medicine Critical Care Medicine | DX: R91.1 Solitary pulmonary nodule (principal); J45.909 Unspecified asthma, uncomplicated; J44.9 Chronic obstructive pulmonary disease, unspecified; K21.9 Gastro-esophageal reflux disease without esophagitis; E11.8 Type 2 diabetes mellitus with unspecified complications; E78.5 Hyperlipidemia, unspecified | CPT/HCPCS: 99204 ==

== ENCOUNTER → 2021-10-06 10:38 | Outpatient (BNVA) | payer MEDICARE, SELFPAY | PROVIDERS: PCP Registered Nurse; Visit Provider Registered Nurse | DX: E78.5 Hyperlipidemia, unspecified (principal); E11.9 Type 2 diabetes mellitus without complications; Z79.4 Long term (current) use of insulin; I10 Essential (primary) hypertension | CPT/HCPCS: 80053; 80061; 83036; 85025 ==

== ENCOUNTER 2021-12-01 10:30 | Outpatient (CLI) | payer MEDICARE, SELFPAY ==
--- NOTE | 2021-12-01 14:19 | PFTS_ITS ---
Date of Study:12/01/21 Date of Dictation: MECHANICS: Forced vital capacity (FVC) is normal. Forced expiratory volume in one second (FEV1) is normal. FEV1/FVC is normal. FLOW VOLUME LOOP: Normal. LUNG VOLUMES: Total lung capacity (TLC) is normal. Residual volume (RV) is normal. DIFFUSING CAPACITY FOR CARBON MONOXIDE: Mildly reduced. INTERPRETATION: The prebronchodilator spirometry is normal. No postbronchodilator spirometry was performed. Lung volumes are normal. Gas exchange (DLCO) is mildly reduced. MTDD
== END 2021-12-01 10:31 | disposition home or self-care (01) ==
LOC: RT 10:32
PROVIDERS: PCP Registered Nurse; Visit Provider Internal Medicine Critical Care Medicine
DX: R91.1 Solitary pulmonary nodule (principal); J45.909 Unspecified asthma, uncomplicated; J44.9 Chronic obstructive pulmonary disease, unspecified
CPT/HCPCS: 94010; 94726; 94729

== ENCOUNTER → 2021-12-08 11:23 | Outpatient (BNVA) | payer MEDICARE, SELFPAY | PROVIDERS: PCP Registered Nurse; Visit Provider Thoracic Surgery (Cardiothoracic Vascular Surgery) | DX: I77.9 Disorder of arteries and arterioles, unspecified (principal) | CPT/HCPCS: 99203; 99204 ==

== ENCOUNTER → 2021-12-21 09:54 | Outpatient (BNVA) | payer MEDICARE, SELFPAY | PROVIDERS: PCP Registered Nurse; Visit Provider Registered Nurse | DX: E11.40 Type 2 diabetes mellitus with diabetic neuropathy, unspecified (principal); R60.0 Localized edema; I10 Essential (primary) hypertension; Z79.4 Long term (current) use of insulin | CPT/HCPCS: 80053; 81000; 82962; 83036; 85025 ==

== ENCOUNTER 2021-12-28 06:00 | Outpatient (CLI) | payer MEDICARE, SELFPAY ==
[2021-12-28 11:51] VITALS: BMI 30.9
--- NOTE | 2021-12-28 12:15 | ECG_ITS ---
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 Measurements Intervals [place] Rate: 53 P: 97 MD: 165 QRS: 20 QRSD: 88 T: 64 QT: 448 QTc: 423 Interpretive Statements SINUS BRADYCARDIA Compared to ECG 07/06/2021 21:22:16 Sinus rhythm no longer present Electronically Signed On 12-29-2021 10:43:16 CDT by Alejandro Will M.D. [id number]
[2021-12-28 12:51] LABS: Basophils # 0.1 10^3/uL (0.0-0.1); Basophils % 1.1 %; Eosinophils # 0.4 10^3/uL (0.0-0.8); Eosinophils % 5.6 %; Hematocrit 38.2 % (37.0-47.0); Hemoglobin 11.6 g/dL (11.5-15.3); Lymphocytes # 1.2 10^3/uL (0.8-4.8); Lymphocytes % 16.1 %; Mean Corpuscular HGB Conc 30.4 g/dL (30.0-36.0); Mean Corpuscular Hemoglobin 28.3 pg (28.0-34.0); Mean Corpuscular Volume 93.2 fl (81-99); Mean Platelet Volume 10.5 fL (7.4-10.4); Monocytes # 0.7 10^3/uL (0.2-0.9); Neutrophils # 4.97 10^3/uL (1.8-7.7); Neutrophils % 67.9 %; Nucleated Red Blood Cells % 0 %; Platelet Count 227 10^3/cmm (130-400); Red Cell Distribution Width 13.9 % (12.1-15.1); White Blood Count 7.3 10^3/uL (4.0-10.0)
[2021-12-28 13:07] LABS: Add Urine Microscopic? YES; Bilirubin Urine Neg (Negative); Blood Urine 2+ (Negative); Glucose Urine UA Norm (Normal); Ketones Urine Negative (Negative); Leukocyte Esterase Urine 2+ (Negative); Nitrate Urine Positive (Negative); Protein Urine Neg (Negative); Urine Appearance Hazy (CLEAR); Urine Color Yellow (Yellow); Urobilinogen Urine Norm (Negative); pH Urine 5 (5-7)
[2021-12-28 13:08] LABS: Add Urine Culture? Yes; Bacteria Urine 4+ /hpf; RBC Urine 0-4 /hpf (0-2); Squamous Epithelial Cell Urine 0-4 /hpf (0-5); WBC Urine TOO NUMEROUS TO CNT /hpf (0-5)
[2021-12-28 13:15] LABS: Blood Urea Nitrogen 20 mg/dL (8-23); Calcium 9.5 mg/dL (8.5-10.5); Carbon Dioxide 29 mmol/L (22-29); Chloride 104 mmol/L (98-107); Glucose 107 mg/dL (65-115); Osmolality Calculated 299 mOsm/kg (285-295); Sodium 143 mmol/L (136-145)
--- NOTE | 2021-12-28 15:44 | ANES.PREANE2 ---
Pre-Anesthetic Assessment Height/Weight: Height 1.68 m Weight 87.09 kg Preop Diagnosis: Right trimalleolar ankle fracture Operation Date: 01/03/22 07:00 Proposed Procedures p Left Carotid Endarterectomy 67061,177.9(Left) - Neo Esposito MD Familial anesthetic complications: None Was Beta Bridger taken within 24 hours: Yes Was Clonidine taken within 24 hours: N/A Social No alcohol and No tobacco Exam alert, oriented x 3, clear to auscultation bilaterally and regular rate & rhythm Airway Submandibular: within normal limits Cervical ROM: within normal limits Mallampati: Class I Dentition: false Pulmonary Asthma, Chronic Obstructive Pulmonary Disease and Sleep Apnea CV/HEM Atrial Fibrillation, Congestive Heart Failure and Peripheral Vascular Disease METS > 4 Carotid Doppler 07/05/21 US/CV carotid duplex BI* [id number] IMPRESSION: 1. Moderate severity left internal carotid artery stenosis estimated 50-69%, although difficult to characterize secondary to tortuosity. 2. At least mild severity stenosis of proximal right internal carotid artery approaching 50%. 3. Recommend CTA neck correlation. ? EKG 12/28/21 ? ? Interpretive Statements SINUS BRADYCARDIA Compared to ECG 07/06/2021 21:22:16 Sinus rhythm no longer present [email or web address] 07/06/21 CONCLUSIONS ?Normal left ventricular size and systolic function, EF 83 %. No ?regional wall motion abnormalities. Grade III/IV diastolic ?dysfunction (restrictive filling pattern), severely elevated ?filling pressures. ?Mildly increased left atrial size. ?Thickened mitral valve. Mild mitral annular calcification. Trace ?to mild? mitral valve regurgitation. ?Thickened aortic valve. ?There is no pericardial effusion. ?There are no intracardiac masses. ?No previous study is available for comparison. Chronic Renal Insufficiency Hepatic None reported GI Gastroesophageal Reflux Disease Metabolic Diabetes Mellitus and Hyperlipidemia Musc/skel Lower Back Pain Neuropsych Cerebrovascular Accident and Neuropathy Dizziness with neck rotation MRI 07/07/21 MR/MR head wo con* [id number] IMPRESSION: ? 1.? No acute infarct or hemorrhage. 2.? Atrophy and chronic microvascular ischemic changes. 3.? Prior lacunar infarct RIGHT thalamus. ? ? Anesthetic Plan ASA status: 3 Anesthesia: Anesthesia Evaluation and General Other: We discussed risk and benefits of general anesthesia including PONV, sore throat (sometimes severe), corneal abrasion, positioning and peripheral nerve injuries, life threatening allergic reaction, post operative ICU admission requiring prolonged intubation, aspiration, stroke, heart attack, , and rare incidences of recall. Patient consents to proceed with general anesthesia. Plan GETA, arterial line, 2 PIV Medications/Allergies Home Medications Medication Instructions Recorded Confirmed Last Taken Type B-complex with vitamin C (Super B 1 tab PO DAILY 01/18/21 12/28/21 Unknown History Complex-Vitamin C) calcium carbonate 600 mg calcium 600 mg PO DAILY 01/18/21 12/28/21 Unknown History (1,500 mg) tablet (Calcium) cholecalciferol (vitamin D3) 125 125 mcg PO QAM 01/18/21 12/28/21 Unknown History mcg (5,000 unit) capsule diclofenac sodium 1 % topical gel 2 g topical QID PRN Pain 01/18/21 12/28/21 Unknown History (Arthritis Pain (diclofenac)) multivitamin 1 tab PO QAM 01/18/21 12/28/21 Unknown History albuterol sulfate 90 mcg/actuation 2 puff inhalation Q6H PRN 03/03/21 12/28/21 Unknown Rx aerosol inhaler (ProAir HFA) bronchospasm #8.5 grams flash glucose scanning reader #6 ea 03/03/21 12/21/21 Unknown Rx (FreeStyle Ericka 14 Day [place]) acetaminophen 500 mg tablet 500 mg PO Q6H PRN Pain 07/06/21 12/28/21 Unknown History fiber 1 cap PO BEDTIME 07/06/21 12/28/21 Unknown History melatonin 10 mg tablet 10 mg PO BEDTIME 07/06/21 12/28/21 Unknown History Lace up brace left and right ankle #2 ea 07/25/21 12/21/21 Unknown Rx apixaban 5 mg tablet (Eliquis) 5 mg PO BID 90 days #180 tabs 10/06/21 12/28/21 Unknown Rx carvedilol 25 mg tablet 25 mg PO BID 90 days #180 tabs 10/06/21 12/28/21 Unknown Rx fluoxetine 40 mg capsule 40 mg PO DAILY #90 caps 10/06/21 12/28/21 Unknown Rx fluticasone furoate 100 1 inh inhalation DAILY 90 days #3 10/06/21 12/28/21 Unknown Rx mcg-vilanterol 25 mcg/dose ea inhalation powder (Breo Ellipta) gabapentin 600 mg tablet 600 mg PO TID 90 days #270 tabs 10/06/21 12/28/21 Unknown Rx montelukast 10 mg tablet 10 mg PO DAILY 90 days #90 tabs 10/06/21 12/28/21 Unknown Rx omeprazole 20 mg capsule,delayed 20 mg PO QAM 90 days #90 caps 10/06/21 12/28/21 Unknown Rx release potassium chloride 20 mEq/15 mL 20 meq (15 mL) PO QAM #1,200 mL 10/06/21 12/28/21 Unknown Rx oral liquid rosuvastatin 20 mg tablet 20 mg PO DAILY 90 days #90 tabs 10/06/21 12/28/21 Unknown Rx amlodipine 10 mg tablet 10 mg PO DAILY #90 tabs 10/10/21 12/28/21 Unknown Rx flash glucose sensor (FreeStyle #6 ea 11/21/21 12/21/21 Unknown Rx Ericka 14 Day Sensor) furosemide 20 mg tablet 10 mg PO QAM 90 days #45 tabs 12/21/21 12/28/21 Unknown Rx insulin human U-100 NPH-regulr See Rx Instructions .Route .COMPLEX 12/28/21 12/28/21 Unknown History 70-30 mix 100 unit/mL subcutaneous susp (Humulin 70/30 U-100 Insulin) Allergies Allergy/AdvReac Type Severity Reaction Status Date / Time adhesive tape Allergy Unknown Verified 12/28/21 11:44 amoxicillin Allergy Unknown Verified 12/28/21 11:44 bee venom protein (honey bee) Allergy Unknown Verified 12/28/21 11:44 clavulanic acid Allergy Unknown Verified 12/28/21 11:44 [From Augmentin] maltitol Allergy Unknown Verified 12/28/21 11:44 metformin Allergy Unknown Verified 12/28/21 11:44 ranitidine Allergy Unknown Verified 12/28/21 11:44 sorbitol Allergy Unknown Verified 12/28/21 11:44 [facility] Anesthesia Medical History Afib Asthma Chronic lower back pain COPD (chronic obstructive pulmonary disease) COVID-19 Diabetes type 2, controlled Diabetic neuropathy Diastolic heart failure Facet arthropathy, lumbar GERD (gastroesophageal reflux disease) History of foot drop Hyperlipidemia Incidental lung nodule, > 3mm and < 8mm Lumbar disc disease with radiculopathy Surgical History History of back surgery History of hysterectomy History of laminectomy History of tubal ligation Family History Father Hypertension Cancer Diabetes Social History Smoking and tobacco status: former smoker Quit status (tobacco): has quit using tobacco Year quit tobacco: 1991 Former quit date comment: 0.75 X 45 years Alcohol intake: never Adopted: No Caregiver/support person: No Lives independently: No Household members: family service: No Current occupational status: retired and disabled History of recent travel: No Current gender identity: Female Data Anesthesia : 12/28/21 12:10 12/28/21 12:10 Short CBC 12/28/21 Range/Units 12:10 WBC 7.3 (4.0-10.0) 10^3/uL Hgb 11.6 (11.5-15.3) g/dL Hct 38.2 (37.0-47.0) % MCV 93.2 (81-99) fl Plt Count 227 (130-400) 10^3/cmm Neut % (Auto) 67.9 % Neut # (Auto) 4.97 (1.8-7.7) 10^3/uL BMP 12/28/21 12:10 Sodium 143 Potassium 5.0 Chloride 104 Carbon Dioxide 29 BUN 20 Creatinine 1.3 H Glucose 107 Calcium 9.5 Urine 12/28/21 Range/Units 12:10 Urine Color Yellow (Yellow) Urine Appearance Hazy A (CLEAR) Urine pH 5 (5-7) Ur Specific [place] 1.010 (1.005-1.030) Urine Protein Neg (Negative) Urine Glucose (UA) Norm (Normal) Urine Ketones Negative (Negative) Urine Nitrate Positive H (Negative) Urine Bilirubin Neg (Negative) Ur Leukocyte Esterase 2+ H (Negative) Urine RBC 0-4 H (0-2) /hpf Urine WBC Too numerous to cnt H (0-5) /hpf Blood Bank 12/28/21 12:10 Blood Type O Positive Rho(D) Type Positive Antibody Screen Negative Cardiac Studies: Echocardiogram 07/06/21
== END 2021-12-28 06:01 | disposition home or self-care (01) ==
LOC: RT 01-25 15:40
PROVIDERS: PCP Registered Nurse; Visit Provider Thoracic Surgery (Cardiothoracic Vascular Surgery)
DX: Z01.818 Encounter for other preprocedural examination (principal); R00.1 Bradycardia, unspecified; I10 Essential (primary) hypertension; Z79.4 Long term (current) use of insulin; E11.40 Type 2 diabetes mellitus with diabetic neuropathy, unspecified
CPT/HCPCS: 80048; 81001; 85025; 86850; 86900; 86920; 87077; 87086; 87186

== ENCOUNTER → 2022-01-09 10:32 | Outpatient (BNVA) | payer MEDICARE, SELFPAY | PROVIDERS: PCP Registered Nurse; Visit Provider Registered Nurse | DX: N30.00 Acute cystitis without hematuria | CPT/HCPCS: 81000; 87077; 87086; 87184 ==

== ENCOUNTER → 2022-01-16 08:56 | Outpatient (BNVA) | payer MEDICARE, SELFPAY | PROVIDERS: PCP Registered Nurse; Visit Provider Internal Medicine Critical Care Medicine | DX: R91.8 Other nonspecific abnormal finding of lung field (principal); J45.909 Unspecified asthma, uncomplicated; Z87.891 Personal history of nicotine dependence | CPT/HCPCS: 99214 ==

== ENCOUNTER 2022-01-24 07:08 | Inpatient (IN) | payer MEDICARE, SELFPAY ==
[2022-01-24] VITALS (83 sets, daily range): BP systolic 87–160; BP diastolic 45–106; PULSE 56–95; RESP 3–24; TEMP 36.4–37.3; O2SAT 93–99; BMI 31.4
--- NOTE | 2022-01-24 08:09 | P.HP_ITS ---
Providers/Chief Complaint Admitting Physician: Dr. Esposito Primary Care Provider: ALPHONSO Oliver Chief Complaint: surgery History of Present Illness Ana M New is a 76 year old female who was referred to our service for a 76% left carotid artery stenosis which was identified during an evaluation for syncope. We saw her originally in consultation on July 29 and also in follow- up on December 08 concerning this finding. She had originally been hospitalized for ankle fractures following a syncopal episode and during that evaluation CT scan of the neck identified a 64% right ICA stenosis and 76% left ICA stenosis. She is being followed by Dr. Bravo for a left upper lobe lung nodule. Head and neck CT scan was performed on July 06 during her hospitalization which identif ied the carotid lesions and admitted prompted by carotid Doppler study performed the day prior on July 05. She has no localizing signs and no history for amaurosis. After careful evaluation, we recommended consideration for elective left carotid endarterectomy to reduce her statistical increased risk for spontaneous CVA related to this high-grade lesion. After conversations with her son, she wished to proceed. She was therefore electively admitted today for planned left carotid endarterectomy. Risk factors include diabetes mellitus and COPD. Review of Systems Const: Reports: fatigue; Denies: fever(s) or chills Eyes: Denies: change in vision ENMT: Denies: throat pain or odynophagia Card: Reports: edema, swelling of feet/ankles, syncope and dyspnea on exertion; Denies: chest pain or palpitations Resp: Reports: dyspnea; Denies: productive cough GI: Denies: abdominal pain, nausea, vomiting or hematemesis Musc: Reports: neck pain, back pain, joint pain and limited range of motion Neuro: Reports: numbness in extremities, difficulty walking (Has used a rolling walker for the past 2 years for vertigo) and dizziness; Denies: headache(s) or weakness in extremities Psych: Denies: anxiety or depression Quique/Lymph: Reports: easy bruising Medications/Allergies Home Medications Medication Instructions Recorded Confirmed Last Taken Type B-complex with vitamin C (Super B 1 tab PO DAILY 01/18/21 01/24/22 01/23/22 History Complex-Vitamin C tablet) calcium carbonate 600 mg calcium 600 mg PO DAILY 01/18/21 01/24/22 01/23/22 History (1,500 mg) tablet (Calcium) cholecalciferol (vitamin D3) 125 125 mcg PO QAM 01/18/21 01/24/22 01/23/22 History mcg (5,000 unit) capsule diclofenac sodium 1 % topical gel 2 g topical QID PRN Pain 01/18/21 01/24/22 01/23/22 History (Arthritis Pain (diclofenac)) multivitamin 1 tab PO QAM 01/18/21 01/24/22 01/23/22 History albuterol sulfate 90 mcg/actuation 2 puff inhalation Q6H PRN 03/03/21 01/24/22 0 11/02/21 Rx aerosol inhaler (ProAir HFA) bronchospasm #8.5 grams flash glucose scanning reader #6 ea 03/03/21 01/16/22 Unknown Rx (FreeStyle Ericka 14 Day [place]) acetaminophen 500 mg tablet 500 mg PO Q6H PRN Pain 07/06/21 01/24/22 01/23/22 21:00 History fiber 1 cap PO BEDTIME 07/06/21 01/24/22 01/23/22 History melatonin 10 mg tablet 10 mg PO BEDTIME 07/06/21 01/24/22 01/23/22 History Lace up brace left and right ankle #2 ea 07/25/21 01/16/22 Unknown Rx apixaban 5 mg tablet (Eliquis) 5 mg PO BID 90 days #180 tabs 10/06/21 01/24/22 01/19/22 Rx carvedilol 25 mg tablet 25 mg PO BID 90 days #180 tabs 10/06/21 01/24/22 01/24/22 04:30 Rx fluoxetine 40 mg capsule 40 mg PO DAILY #90 caps 10/06/21 01/24/22 01/21/22 Rx fluticasone furoate 100 1 inh inhalation DAILY 90 days #3 10/06/21 01/24/22 01/20/22 Rx mcg-vilanterol 25 mcg/dose ea inhalation powder (Breo Ellipta) gabapentin 600 mg tablet 600 mg PO TID 90 days #270 tabs 10/06/21 01/24/22 01/23/22 Rx montelukast 10 mg tablet 10 mg PO DAILY 90 days #90 tabs 10/06/21 01/24/22 01/23/22 Rx omeprazole 20 mg capsule,delayed 20 mg PO QAM 90 days #90 caps 10/06/21 01/24/22 01/20/22 Rx release potassium chloride 20 mEq/15 mL 20 meq (15 mL) PO QAM #1,200 mL 10/06/21 01/24/22 01/23/22 Rx oral liquid rosuvastatin 20 mg tablet 20 mg PO DAILY 90 days #90 tabs 10/06/21 01/24/22 01/22/22 Rx amlodipine 10 mg tablet 10 mg PO DAILY #90 tabs 10/10/21 01/24/22 01/24/22 04:30 Rx flash glucose sensor (FreeStyle #6 ea 11/21/21 01/16/22 Unknown Rx Ericka 14 Day Sensor kit) furosemide 20 mg tablet 10 mg PO QAM 90 days #45 tabs 12/21/21 01/16/22 01/23/22 Rx insulin human U-100 NPH-regulr See Rx Instructions .Route .COMPLEX 12/28/21 01/24/22 01/23/22 17:00 History 70-30 mix 100 unit/mL subcutaneous susp (Humulin 70/30 U-100 Insulin) glucosamine sulfate 2KCl 1,000 mg 1,000 mg PO BID 01/16/22 01/24/22 01/23/22 History tablet (Glucosamine Relief) Allergies Allergy/AdvReac Type Severity Reaction Status Date / Time adhesive tape Allergy Unknown Verified 01/16/22 09:20 amoxicillin Allergy Unknown Verified 01/16/22 09:20 bee venom protein (honey bee) Allergy Unknown Verified 01/16/22 09:20 clavulanic acid Allergy Unknown Verified 01/16/22 09:20 [From Augmentin] maltitol Allergy Unknown Verified 01/16/22 09:20 metformin Allergy Unknown Verified 01/16/22 09:20 ranitidine Allergy Unknown Verified 01/16/22 09:20 sorbitol Allergy Unknown Verified 01/16/22 09:20 PFSH Acute PFSH: Medical History Afib Asthma Chronic lower back pain COPD (chronic obstructive pulmonary disease) COVID-19 Diabetes type 2, controlled Diabetic neuropathy Diastolic heart failure Facet arthropathy, lumbar GERD (gastroesophageal reflux disease) History of foot drop Hyperlipidemia Incidental lung nodule, > 3mm and < 8mm Lumbar disc disease with radiculopathy Surgical History History of back surgery History of hysterectomy History of laminectomy History of tubal ligation Family History Father Hypertension Cancer Diabetes Social History Smoking and tobacco status: former smoker Quit status (tobacco): has quit using tobacco Year quit tobacco: 1991 Former quit date comment: 0.75 X 45 years Alcohol intake: never Adopted: No Caregiver/support person: No Lives independently: No Household members: family service: No Current occupational status: retired and disabled History of recent travel: No Current gender identity: Female Vitals/I&O/Wt Last Vital Signs Temp 97.5 F L 01/24/22 07:25 Pulse 56 L 01/24/22 07:25 Resp 18 01/24/22 07:25 BP 156/73 01/24/22 07:25 Pulse Ox 93 01/24/22 07:25 O2 Del Method 01/24/22 07:25 Physical Exam Const: COMMON NORMALS: no acute distress, average body habitus, patient oriented x3 and alert HENMT: COMMON NORMALS: normocephalic, atraumatic, hearing grossly normal bilaterally, external ears normal and Normal external nose present Eye: COMMON NORMALS: Equal, round and reactive pupils present, EOMs intact bilaterally and conjunctivae normal Neck/C-Spine: COMMON NORMALS: full ROM, no lymphadenopathy and No carotid bruits Chest: COMMONS NORMALS: normal palpation of entire chest wall Resp: COMMON NORMALS: normal respiratory effort and clear to auscultation bilaterally Cardio: COMMON NORMALS: regular rate, regular rhythm, S1 normal heart sound present, No gallops present (Cardio) and No murmurs present (Cardio) GI: COMMON NORMALS: Normal to inspection, nondistended, normoactive bowel sounds present Extremity: COMMON NORMALS: no calf tenderness NARRATIVE EXTREMITY EXAM: Trace pretibial edema Neuro: COMMON NORMALS: patient oriented x3, no focal motor deficits and no sensory deficits noted; negative for gait normal Psych: COMMON NORMALS: mental status grossly normal, Normal thought process present and cooperative Data Other Imaging: My impression: Head/neck CTA of July 06, 2021 Radiologist's impression: 1.? Spiculated nodule LEFT upper lobe measuring 8 mm adjacent to the aortic arch. This has a suspicious appearance and recommend further evaluation with dedicated chest CT and/or PET CT. 2. ? Unchanged chronic lacunar infarct in the RIGHT thalamus. 3. ? Unremarkable intracranial CTA. No flow-limiting stenosis. 4.? RIGHT ICA stenosis measures 64% 5.? LEFT ICA stenosis measures 76% 6.? Codominant and patent vertebral arteries bilaterally. ? A&P Assessment and plan (1) Stenosis of left internal carotid artery: 76% left carotid artery stenosis as confirmed by CTA of the head and neck. Preoperative counseling with patient and son concerning consideration for elective left carotid endarterectomy to reduce her statistical increased risk for spontaneous CVA related to this high-grade lesion. Rationale was carefully discussed. Risk of the surgery reviewed. Details and risks of the procedure were carefully and frankly discussed. Risks reviewed include the possibility of , stroke, heart attack, major bleeding, infection, temporary or permanent hoarseness, deviation of the tongue, swallowing difficulties, pneumonia, organ failure, failure to benefit, prolonged hospital stay, pain after the procedure, need for further procedures, inability to complete the procedure, and possible need for long-term followup. All questions were answered. Appropriate consents have been provided for review and signature. Attestations Medical Necessity Statement*: 76% left carotid artery stenosis Coding Level of Care Code Acute Nurse General Duty for [facility] Fwd Diagnoses Stenosis of left internal carotid artery I65.22
[2022-01-24 08:10] LABS: Glucose Point of Care 154 mg/dL (70-110)
[2022-01-24 08:14] LABS: Basophils # 0.1 10^3/uL (0.0-0.1); Basophils % 1.2 %; Eosinophils # 0.4 10^3/uL (0.0-0.8); Eosinophils % 5.4 %; Hematocrit 39.5 % (37.0-47.0); Hemoglobin 12.3 g/dL (11.5-15.3); Lymphocytes # 1.8 10^3/uL (0.8-4.8); Lymphocytes % 24.2 %; Mean Corpuscular HGB Conc 31.1 g/dL (30.0-36.0); Mean Corpuscular Hemoglobin 28.3 pg (28.0-34.0); Mean Corpuscular Volume 90.8 fl (81-99); Monocytes # 0.9 10^3/uL (0.2-0.9); Monocytes % 12.2 %; Neutrophils % 56.7 %; Nucleated Red Blood Cells % 0 %; Platelet Count 197 10^3/cmm (130-400); Red Blood Count 4.35 10^6/uL (4.1-5.3); Red Cell Distribution Width 14.1 % (12.1-15.1); White Blood Count 7.4 10^3/uL (4.0-10.0)
[2022-01-24] MEDS: sodium chloride 0.9% 1,000 ML 30 ML IV (08:15)
--- NOTE | 2022-01-24 08:23 | P.ANESUD_ITS ---
Pre-Anesthetic Update Pre-Anesthetic Assessment: Date of Surgery/Procedure: 01/24/22 Preop Lisette gnosis: Left carotid endarterectomy Proposed Procedure: Operation Date: 01/24/22 08:35 Proposed Procedures p Left Carotid Endarterectomy 16338,I77.9(Left) - Neo Esposito MD Any changes to Pre-Anesthetic Assessment?: Yes Changes from Pre-Anesthetic Assessment: patient was treated for UTI since pre-op assessment, has completed an entire course of ciprofloxacin Last Intake: Intake Last Liquid Date 01/23/22 Last Liquid Time 22:00 Last Solid Date 01/23/22 Last Solid Time 19:00 Vitals: Temperature 97.5 F L 01/24/22 07:25 Temperature Source Temporal Artery S can 01/24/22 07:25 Pulse Rate 56 L 01/24/22 07:25 Pulse Rhythm 01/24/22 08:14 Pulse Strength 3+ Normal 01/24/22 08:14 Respiratory Rate 18 01/24/22 07:25 Blood Pressure 156/73 01/24/22 07:25 Blood Pressure Anna n 100 01/24/22 07:25 Pulse Oximetry 93 01/24/22 07:25 Oxygen Delivery Me thod 01/24/22 08:14 Exam: Pre-Anes Outpt Exam: alert, oriented x 3, clear to auscultation bilaterally and regular rate & rhythm Cardiac Studies: Echocardiogram 07/06/21
[2022-01-24] MEDS: vancomycin 1,500 MG/300 ML PIGGYBACK 200 MG IV (08:24)
[2022-01-24] MEDS: vancomycin 1,000 MG SDV 1000 MG IRRIGATION (09:25)
[2022-01-24] MEDS: heparin, porcine 1,000 unit/mL INJ 10 mL 10000 UNIT IRRIGATION (09:26)
[2022-01-24 09:40] LABS: Alanine Aminotransferase 22 U/L (0-33); Alkaline Phosphatase 61 U/L (35-105); Anion Gap 17.5 (5-19); Aspartate Amino Transferase 23 U/L (0-32); Blood Urea Nitrogen 18 mg/dL (8-23); Calcium 9.4 mg/dL (8.5-10.5); Carbon Dioxide 26 mmol/L (22-29); Chloride 102 mmol/L (98-107); Globulin 3.1 g/dL (1.3-4.6); Glucose 166 mg/dL (65-115); Osmolality Calculated 298 mOsm/kg (285-295); Potassium 4.5 mmol/L (3.5-5.1); Sodium 141 mmol/L (136-145); Total Bilirubin 0.5 mg/dL (0.15-1.2); Total Protein 7.1 g/dL (6.6-8.7)
--- NOTE | 2022-01-24 11:47 | PM.OP ---
Operative Report Date of procedure: January 24, 2022 Pre-op diagnosis: Preop Diagnosis 76% left internal carotid artery stenosis Post-op diagnosis: same Procedure done: Left carotid endarterectomy with patch angioplasty Implants: hemashield patch Specimens removed/disposition: Carotid plaque Surgeon: Neo Esposito Estimated blood loss (mL): 100 Complications: None: Gross motor neurologically intact immediately postop after extubation Condition: stable Disposition: ICU Brief History: Ms. New is a 76-year-old female with a history of syncope and during evaluation was found by CTA of the head and neck to have a 76% left carotid artery stenosis at the bifurcation. Because of this high-grade lesion, after careful counseling, she was offered carotid endarterectomy to reduce her statistical increased risk for spontaneous CVA related to this carotid lesion. It was carefully emphasized that I did not feel that her syncopal episode was related to this particular lesion and that surgery would be an attempt to reduce her statistical risk from stroke by this lesion. After careful consideration and discussion with her son, she wished to proceed. A proper consents have been reviewed and signed. Procedure: Ms. New was placed on the OR table and underwent general endotracheal anesthesia with a neurological monitoring endotracheal tube as well as placement of a right radial arterial line. Bihemispheric monitoring pads were placed as well as grounding and sensing pads for nerve conduction evaluation during neck dissection.The entire upper chest and left neck were sterilely prepped and draped. Incision was made along the anterior border of the sternomastoid muscle and carried down to the platysma with cautery. Dissection from this point forward was carried out utilizing Metzenbaum scissors and limited use of bipolar cautery. The internal jugular vein was dissected free and the facial vein was ligated, oversewn, and divided. Dissection was continued down through the ansa cervicalis with preservation of major branches. Minor branches were divided if required to allow for adequate exposure. Nerve conduction evaluation was performed throughout the dissection for protection of the recurrent nerve. We subsequently reached the common carotid artery. Dissection was then continued proximally to distally across the bifurcation. Vessel loops were placed around the common carotid artery, internal carotid artery, and external carotid artery. Distally, the base of the hypoglossal nerve could be identified and was protected. The internal carotid artery disease went fairly high and extended above the level of the mandibular angle. This did require some traction in this region, but great care was taken to minimize pressure to the hypoglossal nerve, which was protected. Care was taken during this dissection to avoid injury to the vagus nerve. The patient was then heparinized with 10,000 units. The systolic blood pressure was elevated to 160. Following this, in a rapid sequenced fashion, the distal internal carotid artery was clamped followed by clamping of the common carotid artery and external carotid artery. #11 scalpel blade was used to open the common carotid artery proximally. Carrillo scissors were then utilized to extend this arteriotomy across the distal common carotid artery and ulcerated very stenotic plaque and continue this further at the bifurcation across the calcific plaque in the internal carotid artery until we had reached normal intima. The internal carotid artery clamp was briefly flashed with evidence of brisk back bleeding, therefore we elected not to shunt. It should be noted that bi-hemispheric oximetry was recorded throughout the procedure. Next, a freer elevator was utilized to create a dissection plane the plaque from intima at the proximal portion of the arteriotomy. This was then divided with a #11 scalpel blade. This plaque was then further dissected along the intimal plane proximally to distally across the bifurcation. Utilizing an everting technique, plaque was removed from the external carotid artery with brisk flow. This plaque was then dissected free up the internal carotid artery to a feathered edge. Heparinized saline solution was utilized to remove any loose debris. Next, a Hemashield patch was brought into the field and sewn into position utilizing a running 6-0 Prolene suture, thereby completing our patch angioplasty. At the completion of the patch, the external carotid artery was opened followed by the common carotid artery and finally the internal carotid artery, thereby reestablishing cerebral flow. Areas of extravasation were repaired with 6-0 Prolene suture. After 5 minutes, heparin was reversed with protamine. Hemostasis was confirmed. The wound was irrigated with antibiotic solution. A small, flat, Franklyn-Rea drain was placed in the wound and connected to bulb suction. Sponge and needle count was correct. The wound was then closed in 2 layers of 3-0 Vicryl suture. Skin was reapproximated in a subcuticular manner with 4-0 Monocryl suture. A pressure dressing was then applied. Ms. New was awakened from anesthesia and spontaneous movement of all extremities as well as movement to command was noted. She was then transferred to the ICU in stable condition. We did intellectual property counsel with her son by phone at completion of the procedure. She will be monitored in the ICU for the next 24 hours.
--- NOTE | 2022-01-24 12:00 | PC.NURSE ---
TO Unit Pt brought to unit via bed by OR staff. Pt is sleepy but able to answer questions appropriately. Pt has right radial art line. SAUNDRA to left side of neck is secure with scant amounts of red drainage. Pt denies pain and has been oriented to room with call light within reach.
[2022-01-24] MEDS: morphine 4 mg/mL SDV 1 mL 2 MG IVP ×3 (12:34→21:12)
--- NOTE | 2022-01-24 12:50 | ANE.PACU2 ---
Inpatient post-anesthesia follow up: Airway intact: Yes Vital signs: Temperature 97.5 F Pulse Rate 56 Respiratory Rate 18 Blood Pressure 156/73 Pulse Oximetry 93 Oxygen Delivery Me thod Room Air Oxygen Flow Rate Fraction of Inspir ed Oxygen Hydration adequate: Yes Nausea and vomiting: No Pain level: 1 Mental status: Baseline
[2022-01-24] MEDS: gabapentin 300 mg Capsule 600 MG PO ×2 (17:40→21:17)
[2022-01-24] MEDS: aspirin 81 mg EC Tablet PO (17:40)
[2022-01-24 17:55] LABS: Glucose Point of Care 257 mg/dL (70-110)
[2022-01-24] MEDS: budesonide 0.5 mg/2 mL Neb INHALATION (19:55)
[2022-01-24] MEDS: insulin lispro 100 unit/1 mL SUBCUT (21:11)
[2022-01-24 21:13] LABS: Glucose Point of Care 437 mg/dL (70-110)
[2022-01-24] MEDS: ondansetron 2 mg/ML SDV 2 mL 4 MG IVP (21:16)
[2022-01-24] MEDS: carvedilol 25 mg Tablet PO (21:17)
[2022-01-25] VITALS (64 sets, daily range): BP systolic 124–152; BP diastolic 51–61; PULSE 66–82; RESP 8–29; TEMP 36.7; O2SAT 95–99
[2022-01-25] MEDS: morphine 4 mg/mL SDV 1 mL 2 MG IVP (04:24)
[2022-01-25] MEDS: ondansetron 2 mg/ML SDV 2 mL 4 MG IVP (04:30)
[2022-01-25 05:17] LABS: Glucose Point of Care 270 mg/dL (70-110)
[2022-01-25] MEDS: potassium chloride oral liq 20 mEq/15 mL UDC PO (05:22)
--- NOTE | 2022-01-25 06:41 | P.DS_ITS ---
Discharge Providers Date of Admission: 01/24/22 07:08 Date of Discharge: January 25, 2022 Attending Provider at Admission: Neo Esposito MD Attending Provider at Discharge: Neo Esposito MD Primary Care Provider: ALPHONSO Oliver Diagnoses at Discharge Discharge Diagnosis (1) Stenosis of left internal carotid artery: Details from hospital stay: Ms. New is a 76-year-old female whom had been originally referred to our service for a 76% left internal carotid artery stenosis identified during evaluation for syncope. She was originally seen in my clinic on outpatient basis and after careful discussion, left carotid endarterectomy was recommended as a prophylactic measure to reduce her statistical increased risk for spontaneous CVA related to her left carotid artery stenosis. She was electively admitted January 24 and underwent left carotid endarterectomy with patch angioplasty. Postoperatively, she has convalesced in the ICU where she remained hemodynamically stable and neurologically intact. She had low SAUNDRA drain output and drain was discontinued this morning. Incision is clean and dry. Voice quality is normal. She is tolerating diet well without swallowing difficulties. Neurologically, she remains intact. She will be discharged home today in stable condition with decreased activities for the next week. I will add low- dose aspirin to her current medical regimen. She will follow-up in [facility] in 1 week. Status: Acute Reason for Visit Reason for Visit: surgery Physical Exam Const: COMMON NORMALS: patient oriented x3 Neck/C-Spine: OTHER: Left neck incision is clean, dry, and intact. There is no swelling. Face is symmetrical. Tongue is midline with protrusion. Voice quality is normal. Swallowing is normal. SAUNDRA drain was removed this morning and surgical dressing was replaced. Resp: COMMON NORMALS: normal respiratory effort and clear to auscultation bilaterally AUSCULTATION: clear to auscultation bilaterally Cardio: COMMON NORMALS: regular rate, regular rhythm, S1 normal heart sound present and No rub (Cardio) RATE: regular rate RHYTHM: regular rhythm HEART SOUNDS: S1 normal heart sound present Neuro: COMMON NORMALS: patient oriented x3, moves all extremities, no focal motor deficits and no sensory deficits noted Urinary Catheter Management: Alex: Cath Placed During This Visit: yes Reason for Continuing Indwelling Catheter: Accurate Measurement of Urinary Output in Critically Ill Patients Urinary Catheter Date of Insertion: 01/24/22 Urinary Catheter Time of Insertion: 09:00 Discharge Data Studies Completed and Pending Pending at discharge Category Date Time Status Leukocyte Reduced RBC Routine Lab 01/24/22 08:00 Results Type and Screen Routine Lab 01/24/22 08:00 Results Pathology: Surgical [PTH] Routine Pth 01/24/22 11:26 Received Laboratory Results WBC 7.4 10^3/uL (4.0-10.0) 01/24/22 08:00 RBC 4.35 10^6/uL (4.1-5.3) 01/24/22 08:00 Hgb 12.3 g/dL (11.5-15.3) 01/24/22 08:00 Hct 39.5 % (37.0-47.0) 01/24/22 08:00 MCV 90.8 fl (81-99) 01/24/22 08:00 MCH 28.3 pg (28.0-34.0) 01/24/22 08:00 MCHC 31.1 g/dL (30.0-36.0) 01/24/22 08:00 RDW 14.1 % (12.1-15.1) 01/24/22 08:00 Plt Count 197 10^3/cmm (130-400) 01/24/22 08:00 MPV 11.0 fL (7.4-10.4) H 01/24/22 08:00 Neut % (Auto) 56.7 % 01/24/22 08:00 Lymph % (Auto) 24.2 % 01/24/22 08:00 [place] % (Auto) 12.2 % 01/24/22 08:00 Eos % (Auto) 5.4 % 01/24/22 08:00 Baso % (Auto) 1.2 % 01/24/22 08:00 Neut # (Auto) 4.20 10^3/uL (1.8-7.7) 01/24/22 08:00 Lymph # (Auto) 1.8 10^3/uL (0.8-4.8) 01/24/22 08:00 [place] # (Auto) 0.9 10^3/uL (0.2-0.9) 01/24/22 08:00 Eos # (Auto) 0.4 10^3/uL (0.0-0.8) 01/24/22 08:00 Baso # (Auto) 0.1 10^3/uL (0.0-0.1) 01/24/22 08:00 Nucleated RBC % (auto) 0 % 01/24/22 08:00 Nucleated RBCs # 0.0 /100WBC 01/24/22 08:00 Sodium 141 mmol/L (136-145) 01/24/22 08:00 Potassium 4.5 mmol/L (3.5-5.1) 01/24/22 08:00 Chloride 102 mmol/L (98-107) 01/24/22 08:00 Carbon Dioxide 26 mmol/L (22-29) 01/24/22 08:00 Anion Gap 17.5 (5-19) 01/24/22 08:00 BUN 18 mg/dL (8-23) 01/24/22 08:00 Creatinine 1.1 mg/dL (0.5-0.9) H 01/24/22 08:00 GFR Calculation Not Reportable 01/24/22 08:00 Glucose 166 mg/dL (65-115) H 01/24/22 08:00 POC Glucose 270 mg/dL (70-110) H 01/25/22 04:34 Calculated Osmolality 298 mOsm/kg (285-295) H 01/24/22 08:00 Calcium 9.4 mg/dL (8.5-10.5) 01/24/22 08:00 Total Bilirubin 0.5 mg/dL (0.15-1.2) 01/24/22 08:00 AST 23 U/L (0-32) 01/24/22 08:00 ALT 22 U/L (0-33) 01/24/22 08:00 Alkaline Phosphatase 61 U/L (35-105) 01/24/22 08:00 Total Protein 7.1 g/dL (6.6-8.7) 01/24/22 08:00 Albumin 4.0 g/dL (3.5-5.2) 01/24/22 08:00 Globulin 3.1 g/dL (1.3-4.6) 01/24/22 08:00 Blood Type O Positive 01/24/22 08:00 Rho(D) Type Positive 01/24/22 08:00 Antibody Screen Negative 01/24/22 08:00 Crossmatch See Detail 01/24/22 08:00 Procedures Performed Left carotid endarterectomy with patch angioplasty on January 24, 2022 Vitals Last Vital Signs Temp 98.0 F 01/25/22 04:35 Pulse 71 01/25/22 06:00 Resp 11 L 01/25/22 04:35 BP 152/61 01/25/22 04:35 Pulse Ox 98 01/25/22 04:35 O2 Del Method 01/25/22 04:35 O2 Flow Rate 2 01/25/22 04:35 Discharge Plan Discharge Patient Disposition: Home Condition: Stable Prescriptions: New hydrocodone-acetaminophen 5-325 mg Tablet 1 tab PO Q6H PRN (Reason: Moderate Pain) Qty: 15 0RF levofloxacin 500 mg tablet 500 mg PO DAILY 3 Days Qty: 3 0RF aspirin [Adult Low Dose Aspirin] 81 mg tablet,delayed release (DR/EC) 81 mg PO DAILY Qty: 100 0RF Continued B-complex with vitamin C [Super B Complex-Vitamin C] Tablet 1 tab PO DAILY multivitamin Tablet 1 tab PO QAM cholecalciferol (vitamin D3) 125 mcg (5,000 unit) capsule 125 mcg PO QAM calcium carbonate [Calcium 600] 600 mg calcium (1,500 mg) tablet 600 mg PO DAILY diclofenac sodium [Arthritis Pain (diclofenac)] 1 % gel 2 g topical QID PRN (Reason: Pain) Rx Instructions: apply to single elbow, wrist or hand; for hand includes palm/fingers/back of hand albuterol sulfate [ProAir HFA] 90 mcg/actuation HFA aerosol inhaler 2 puff inhalation Q6H PRN (Reason: bronchospasm) Qty: 8.5 5RF (DME) FreeStyle Ericka 14 Day [place] Misc See Rx Instructions .Route Qty: 6 0RF Rx Instructions: Every 2 weeks furosemide 20 mg tablet 10 mg PO QAM 90 Days Qty: 45 1RF (DME) Lace up brace left and right ankle See Rx Instructions .Route .MEDSUPPLY Qty: 2 0RF Rx Instructions: As directed glucosamine sulfate 2KCl [Glucosamine Relief] 1,000 mg tablet 1,000 mg PO BID Rx Instructions: administer with meals carvedilol 25 mg tablet 25 mg PO BID 90 Days Qty: 180 1RF Rx Instructions: must administer with a meal/food Eliquis 5 mg tablet 5 mg PO BID 90 Days Qty: 180 1RF fluoxetine 40 mg capsule 40 mg PO DAILY Qty: 90 3RF gabapentin 600 mg tablet 600 mg PO TID 90 Days Qty: 270 1RF potassium chloride 20 mEq/15 mL liquid 20 meq PO QAM Qty: 1200 1RF rosuvastatin 20 mg tablet 20 mg PO DAILY 90 Days Qty: 90 1RF omeprazole 20 mg capsule,delayed release(DR/EC) 20 mg PO QAM 90 Days Qty: 90 1RF montelukast 10 mg tablet 10 mg PO DAILY 90 Days Qty: 90 1RF Breo Ellipta 100-25 mcg/dose blister with device 1 inh inhalation DAILY 90 Days Qty: 3 1RF amlodipine 10 mg tablet 10 mg PO DAILY Qty: 90 1RF (DME) FreeStyle Ericka 14 Day Sensor Kit See Rx Instructions .ROUTE .COMPLEX Qty: 6 0RF Dose Instruction: APPLY SENSOR TO SKIN EVERY 2 WEEKS DIRECTED Rx Instructions: APPLY SENSOR TO SKIN EVERY 2 WEEKS DIRECTED acetaminophen 500 mg Tablet 500 mg PO Q6H PRN (Reason: Pain) fiber Capsule 1 cap PO BEDTIME melatonin 10 mg Tablet 10 mg PO BEDTIME Humulin 70/30 U-100 Insulin 100 unit/mL (70-30) suspension See Rx Instructions .ROUTE .COMPLEX Rx Instructions: 15 units in am and 10 units in pm Discharge Orders: Discharge Order (Routine); Ordered 01/25/22 Ordered By: Neo Esposito Referrals: Neo Esposito MD [Physician] - 1 week Discharge Diet: Usual diet Discharge Activity: Limit activity as instructed Patient Instructions: Opioid Safety Activity Restrictions/Additional Instructions: May remove bandage in 2 days May begin daily showers in 3 days No swimming or tub baths x 2 weeks No ointments on incision Report drainage, redness, heat, increased pain, or swelling to clinic No heavy lifting x1 week Discharge Attestations Time Spent in Discharge Care*: less than 30 min Specific Discharge Activities: educating patient, discussing with counseling case manager/social workers/dc planners and documenting/other paperwork Status at Discharge: Cognitive status at discharge: cognitively intact , Behavioral status at discharge: cooperative , Functional status at discharge: independent ambulation , Overall status at discharge: patient is back to baseline Quality Metrics Clinical Quality Measures [ No reported AMI, CVA or VTE this stay] Coding Level of Care Code Acute Chg FW DC note Diagnoses Stenosis of left internal carotid artery I65.22
--- NOTE | 2022-01-25 07:21 | PC.NURSE ---
Shift Note Frequent safety and comfort rounds continue. Orders and/or nursing care completed as indicated. Patient monitored for response to intervention and treatment(s). Education provided includes medication management. Patient verbalized understanding of teaching. Patient had an uneventful shift, remains alert/oriented x4 on 2LNC. SAUNDRA drain to left neck, removed by Dr. Esposito at bedside this morning. Left neck SAUNDRA drained 25 mls of blood overnight and lorenzo catheter drained 2800 mls of urine. Patient reported pain overnight, PRN medication administered please see MAR for detail. Will continue to monitor.
[2022-01-25] MEDS: vancomycin 1,000 MG in sodium chloride 0.9% 250 ML 250 MG IV (07:50)
[2022-01-25] MEDS: budesonide 0.5 mg/2 mL Neb INHALATION (07:53)
== END 2022-01-25 12:03 | disposition home or self-care (01) | DRG 38 ==
LOC: ICU 01-25 02:22
PROVIDERS: Admitting Provider Thoracic Surgery (Cardiothoracic Vascular Surgery); PCP Registered Nurse; Visit Provider Thoracic Surgery (Cardiothoracic Vascular Surgery)
PROC: 03CL0ZZ Extirpation of Matter from Left Internal Carotid Artery, Open Approach (ICD-10-PCS; CPT 35301; principal; 2022-01-24 08:25)
DX: I65.22 Occlusion and stenosis of left carotid artery (principal); I50.32 Chronic diastolic (congestive) heart failure; R91.8 Other nonspecific abnormal finding of lung field; I48.91 Unspecified atrial fibrillation; J44.9 Chronic obstructive pulmonary disease, unspecified; M54.16 Radiculopathy, lumbar region; G89.29 Other chronic pain; Z86.16 Personal history of COVID-19; E11.42 Type 2 diabetes mellitus with diabetic polyneuropathy; K21.9 Gastro-esophageal reflux disease without esophagitis; E78.5 Hyperlipidemia, unspecified; Z87.891 Personal history of nicotine dependence; Z79.51 Long term (current) use of inhaled steroids; Z79.01 Long term (current) use of anticoagulants
CPT/HCPCS: 36415; 36416; 51702; 80053; 82962; 85025; 86850; 86900; 86920; 88304; 88305; 94640; 96372; J0330; J1100; J1644; J1815; J2270; J2370; J2405; J2704; J2720; J3010; J3370; J3490; J7030; J7050; J7611; J7626

== ENCOUNTER → 2022-01-31 15:47 | Outpatient (BNVA) | payer MEDICARE, SELFPAY | PROVIDERS: PCP Registered Nurse; Visit Provider Thoracic Surgery (Cardiothoracic Vascular Surgery) | DX: Z98.890 Other specified postprocedural states (principal) | CPT/HCPCS: 99024 ==

== ENCOUNTER → 2022-02-07 13:21 | Outpatient (BNVA) | payer MEDICARE, SELFPAY | PROVIDERS: PCP Registered Nurse; Visit Provider Thoracic Surgery (Cardiothoracic Vascular Surgery) | DX: Z98.890 Other specified postprocedural states (principal) | CPT/HCPCS: 99024 ==

== ENCOUNTER 2022-02-14 06:41 | Outpatient (CLI) | payer MEDICARE, SELFPAY ==
--- NOTE | 2022-02-14 07:00 | CT_ITS ---
WS: [id number] CT CHEST TECHNIQUE: Noncontrast CT of the chest with coronal and sagittal reformatted images. CLINICAL INFORMATION: Pulmonary nodule COMPARISON: CT July 09, 2021. PET/CT September 13, 2021 DLP: 753.[address] scans at [facility] use at least one of these dose optimization techniques: automated e xposure control; mA and/or kV adjustment per patient size (includes targeted exams where dose is matc hed to clinical indication); or iterative reconstruction. FINDINGS: Stable 7 mm nodule adjacent to the aortic arch LEFT upper lobe posteriorly and medially. This is unch anged since 07/09/21. Previously described enlarged RIGHT perihilar nodule/lymph node with internal ca lcification is unchanged. This is unchanged since July 09, 2021. No acute pulmonary infiltrates. Haz y atelectasis RIGHT middle lobe. No other suspicious pulmonary parenchymal opacities. Aortic calcification. Normal caliber thoracic a mauri. Coronary calcification. No mediastinal or hilar lymphadenopathy. Small esophageal hiatal hernia. Postoperative changes GE junction. Partially visualized multicystic k idneys bilaterally. Stable RIGHT adrenal adenoma. CT/CT chest wo con [id number] IMPRESSION: 1. Previously described 7 mm slightly spiculated nodule in the LEFT upper lobe adjacent to aortic arch is unchanged. Recommend 12 month follow-up. 2. Slight spiculation with centrally calcified RIGHT hilar lymph node is uncha nged. 3. Stable RIGHT adrenal adenoma. 4. Partially visualized multicystic kidneys bilaterally. 5. Small esophageal hiatal hernia.
== END 2022-02-14 06:42 | disposition home or self-care (01) ==
LOC: RAD 06:42
PROVIDERS: PCP Registered Nurse; Visit Provider Internal Medicine Critical Care Medicine
DX: R91.1 Solitary pulmonary nodule (principal); D35.01 Benign neoplasm of right adrenal gland; Q61.4 Renal dysplasia; K44.9 Diaphragmatic hernia without obstruction or gangrene
CPT/HCPCS: 71250; 99024

== ENCOUNTER 2022-03-27 14:03 | Outpatient (CLI) | payer MEDICARE, SELFPAY ==
--- NOTE | 2022-03-27 14:30 | USCV_ITS ---
Ana M New Age: 76 Gender: F : 1945 Exam Date: 03/27/2022 14:18 Ordering Phys: Neo Esposito MD (Andy) ([email or web address] [place]) Technologist: CT Exam Location: [facility] [place] Indication: previous left cea Risk Factors: Previous Vascular Surgery: Right Brachial BP: / Left Brachial BP: / Right Left Velocity (cm/s) Spectral Plaque Velocity (cm/s) Spectral Plaque Syst/Diast Broadening Syst/Diast Broadening 52.30/ 9.40 Prox CCA 60.70 / 9.00 61.70/ 10.00 Mid CCA 45.80 / 9.70 62.70/ 12.20 Distal CCA 59.80 / 11.00 119.20/27.40 Prox ICA 118.60/ 19.60 103.70/22.60 Mid ICA 165.90/ 25.40 84.30/ 18.60 Distal ICA 124.90/ 25.40 84.50 ECA 229.80 1.90 ICA/CCA 2.73 Antegrade Vertebral Antegrade 43.80/ 10.50 cm/s 78.50/ 10.00 cm/s Bi Subclavian Bi 107.0 0 FINDINGS Comparison:. 07/05/21. Interval left CEA since the prior exam. Mild elevation of velocity in the left ICA but improved since the prior exam. Moderate bilateral carotid atherosclerosis. Antegrade vertebral arteries. CONCLUSIONS Bilateral ICA stenosis less than 50%. Improved left ICA stenosis. Moderate carotid atherosclerosis. Dr. Armida Levy DO (Electronically Signed) Final Date: 27 March 2022 15:10 S
== END 2022-03-27 14:04 | disposition home or self-care (01) ==
LOC: RAD 14:06
PROVIDERS: PCP Registered Nurse; Visit Provider Thoracic Surgery (Cardiothoracic Vascular Surgery)
DX: I65.23 Occlusion and stenosis of bilateral carotid arteries (principal)
CPT/HCPCS: 93880

== ENCOUNTER → 2022-05-02 10:12 | Outpatient (BNVA) | payer MEDICARE, SELFPAY | PROVIDERS: PCP Registered Nurse; Visit Provider Registered Nurse | DX: E11.9 Type 2 diabetes mellitus without complications (principal); Z79.4 Long term (current) use of insulin | CPT/HCPCS: 80053; 82043; 83036 ==

== ENCOUNTER → 2022-07-26 09:45 | Outpatient (BNVA) | payer MEDICARE, SELFPAY | PROVIDERS: PCP Registered Nurse; Visit Provider Registered Nurse | DX: E11.9 Type 2 diabetes mellitus without complications (principal); I10 Essential (primary) hypertension | CPT/HCPCS: 80053; 81000; 83036; 85025 ==

== ENCOUNTER → 2022-08-08 14:03 | Outpatient (BNVA) | payer MEDICARE, SELFPAY | PROVIDERS: PCP Registered Nurse; Visit Provider Specialist | DX: I50.30 Unspecified diastolic (congestive) heart failure (principal); I48.20 Chronic atrial fibrillation, unspecified; E78.5 Hyperlipidemia, unspecified; Z79.01 Long term (current) use of anticoagulants; Z87.891 Personal history of nicotine dependence; Z79.82 Long term (current) use of aspirin | CPT/HCPCS: 99214 ==

== ENCOUNTER → 2022-08-16 13:33 | Outpatient (BNVA) | payer MEDICARE, SELFPAY | PROVIDERS: PCP Registered Nurse; Visit Provider Internal Medicine Cardiovascular Disease | DX: I48.20 Chronic atrial fibrillation, unspecified (principal); R00.0 Tachycardia, unspecified; I49.1 Atrial premature depolarization; I49.3 Ventricular premature depolarization | CPT/HCPCS: 93270 ==

== ENCOUNTER 2022-10-11 14:29 | Outpatient (CLI) | payer MEDICARE, SELFPAY ==
--- NOTE | 2022-10-11 14:48 | USCV_ITS ---
Ana M New Age: 76 Gender: F : 1945 Exam Date: 10/11/2022 15:15 Ordering Phys: Neo Esposito MD (Andy) ([email or web address] [place]) Technologist: LISA Exam Location: [facility] [place] Indication: EVAL FOR CAROTID STENOSIS, H/O LEFT CEA 2021 Risk Factors: Previous Vascular Surgery: Right Brachial BP: / Left Brachial BP: / Right Left Velocity (cm/s) Spectral Plaque Velocity (cm/s) Spectral Plaque Syst/Diast Broadening Syst/Diast Broadening 94.00/ 10.90 Prox CCA 72.60 / 9.40 62.90/ 15.50 Mid CCA 66.70 / 19.70 62.90/ 13.20 Distal CCA 56.40 / 19.70 116.90/27.60 Prox ICA 187.10/ 39.60 118.00/33.10 Mid ICA 150.50/ 19.00 102.80/17.30 Distal ICA 134.40/ 27.80 95.50 ECA 152.40 1.26 ICA/CCA 2.58 Antegrade Vertebral Antegrade 49.60/ 7.70 cm/s 100.1/ 28.90 cm/s 0 Tri Subclavian Tri 249.3 160.3 0 0 FINDINGS comp 04/06 Progressed Left ICA velocities since previous CONCLUSIONS Right ICA stenosis <50%. Moderate atheromatous plaque right carotid bulb/ICA. Left ICA stenosis 50-69%. Mild atheromatous plaque left carotid bulb/ICA. Left CEA per history Normal antegrade Doppler flow noted in the right vertebral artery. Normal antegrade Doppler flow noted in the left vertebral artery. Multiple small nodules left thyroid Frederick Acuna MD (Electronically Signed) Final Date: 11 October 2022 17:39 S
== END 2022-10-11 14:30 | disposition home or self-care (01) ==
LOC: RAD 14:35
PROVIDERS: PCP Registered Nurse; Visit Provider Thoracic Surgery (Cardiothoracic Vascular Surgery)
DX: I65.22 Occlusion and stenosis of left carotid artery (principal); I65.21 Occlusion and stenosis of right carotid artery; E04.2 Nontoxic multinodular goiter; Z87.891 Personal history of nicotine dependence
CPT/HCPCS: 93880

== ENCOUNTER → 2022-10-19 11:42 | Outpatient (BNVA) | payer MEDICARE, SELFPAY | PROVIDERS: PCP Registered Nurse; Visit Provider Thoracic Surgery (Cardiothoracic Vascular Surgery) | DX: Z98.890 Other specified postprocedural states (principal); J02.9 Acute pharyngitis, unspecified | CPT/HCPCS: 87880; 99213 ==

== ENCOUNTER → 2022-10-26 10:21 | Outpatient (BNVA) | payer MEDICARE, SELFPAY | PROVIDERS: PCP Registered Nurse; Visit Provider Registered Nurse | DX: N39.0 Urinary tract infection, site not specified (principal) | CPT/HCPCS: 81000; 87077; 87086; 87184 ==

== ENCOUNTER → 2022-11-06 13:56 | Outpatient (BNVA) | payer MEDICARE, SELFPAY | PROVIDERS: PCP Registered Nurse; Visit Provider Registered Nurse | DX: E11.9 Type 2 diabetes mellitus without complications (principal); N39.0 Urinary tract infection, site not specified | CPT/HCPCS: 81000; 82962 ==

== ENCOUNTER → 2022-11-07 12:41 | Outpatient (BNVA) | payer MEDICARE, SELFPAY | PROVIDERS: PCP Registered Nurse; Visit Provider Internal Medicine | DX: I48.20 Chronic atrial fibrillation, unspecified (principal); I11.0 Hypertensive heart disease with heart failure; I50.30 Unspecified diastolic (congestive) heart failure; E78.5 Hyperlipidemia, unspecified; K21.9 Gastro-esophageal reflux disease without esophagitis; Z79.4 Long term (current) use of insulin; J44.9 Chronic obstructive pulmonary disease, unspecified; Z87.891 Personal history of nicotine dependence; E11.40 Type 2 diabetes mellitus with diabetic neuropathy, unspecified; Z79.84 Long term (current) use of oral hypoglycemic drugs; Z79.01 Long term (current) use of anticoagulants | CPT/HCPCS: 99214 ==

== ENCOUNTER → 2022-12-19 13:40 | Outpatient (BNVA) | payer BC, SELFPAY | PROVIDERS: PCP Registered Nurse; Visit Provider Registered Nurse | DX: E11.9 Type 2 diabetes mellitus without complications (principal); E55.9 Vitamin D deficiency, unspecified | CPT/HCPCS: 80053; 82306; 83036; 85025 ==

== ENCOUNTER → 2023-01-15 10:59 | Outpatient (BNVA) | payer MEDICARE, SELFPAY | PROVIDERS: PCP Registered Nurse; Visit Provider Internal Medicine Pulmonary Disease | DX: R91.1 Solitary pulmonary nodule (principal); J45.909 Unspecified asthma, uncomplicated; Z87.891 Personal history of nicotine dependence | CPT/HCPCS: 99214 ==

== ENCOUNTER 2023-02-19 11:28 | Outpatient (CLI) | payer MEDICARE, SELFPAY ==
--- NOTE | 2023-02-19 12:00 | CT_ITS ---
WS: [id number] CT chest wo con [id number] HISTORY: R91.1 - Solitary pulmonary nodule TECHNIQUE: Axial imaging performed through the thorax. Coronal and sagittal reformats are submitted. All CT scans at [facility] use at least one of these dose optimization techniques: automated exposure control; mA and/or kV adjustment per patient size (includes targeted exams where dose is mat ched to clinical indication); or iterative reconstruction. CONTRAST: Omnipaque 350; 100 mL IV. DLP: 381.08 mGy.cm COMPARISON: 02/14/2022, 07/09/2021 and PET/CT 09/13/2021 Lungs and central airway: Mild pulmonary hyperinflation. LEFT upper lobe 7 mm slightly spiculated nod ule is unchanged. The soft tissue mass with calcification in the RIGHT upper lobe is also unchanged. This consolidation was negative on the PET/CT. Pleura: Normal. No pleural effusion. Heart and pericardium: Normal size heart with no pericardial effusion. Mediastinum and randi: No adenopathy identified on this unenhanced exam. Vessels: Moderate atherosclerosis aorta. Pulmonary artery is mildly dilated. Coronary artery calcific ations. Chest wall and lower neck: No soft tissue masses. Upper abdomen: Numerous bilateral renal cysts. Stable RIGHT adrenal adenoma. Osseous structures: No destructive process. IMPRESSION: 1. Stable 7 mm spiculated nodule LEFT upper lobe adjacent to the aortic arch. Stable since 07/09/2021. Consider 12-month chest CT follow-up. 2. Stable RIGHT upper lobe central nodule with calcification. Also negative on PET/CT. 3. Stable RIGHT adrenal adenoma.
== END 2023-02-19 11:29 | disposition home or self-care (01) ==
LOC: RAD 11:30
PROVIDERS: PCP Registered Nurse; Visit Provider Registered Nurse
DX: R91.1 Solitary pulmonary nodule (principal); D35.01 Benign neoplasm of right adrenal gland
CPT/HCPCS: 71250

== ENCOUNTER → 2023-03-20 10:06 | Outpatient (BNVA) | payer MEDICARE, SELFPAY | PROVIDERS: PCP Registered Nurse; Visit Provider Registered Nurse | DX: E11.9 Type 2 diabetes mellitus without complications (principal) | CPT/HCPCS: 80053; 81000; 82607; 83036 ==

== ENCOUNTER 2023-03-21 13:24 | Outpatient (CLI) | payer MEDICARE, OTHER, SELFPAY ==
--- NOTE | 2023-03-21 14:00 | USCV_ITS ---
Ana M New Age: 77 Gender: F : 1945 Exam Date: 03/21/2023 13:48 Ordering Phys: Neo Esposito MD (Andy[email or web address] Technologist: LISA Exam Location: [facility] [place] Indication: EVAL FOR CAROTID STENOSIS. H/O LEFT CEA 2021 Risk Factors: Previous Vascular Surgery: Right Brachial BP: / Left Brachial BP: / Right Left Velocity (cm/s) Spectral Plaque Velocity (cm/s) Spectral Plaque Syst/Diast Broadening Syst/Diast Broadening 69.70/ 7.20 Prox CCA 52.50 / 9.60 71.00/ 15.80 Mid CCA 54.20 / 14.60 65.10/ 17.70 Distal CCA 50.50 / 15.50 126.80/33.10 Prox ICA 129.00/ 31.10 168.60/42.50 Mid ICA 118.60/ 18.90 106.70/24.80 Distal ICA 104.70/ 18.90 88.60 ECA 440.10 2.37 ICA/CCA 2.38 Antegrade Vertebral Antegrade 76.00/ 17.10 cm/s 62.10/ 10.90 cm/s Tri Subclavian Tri 215.1 161.3 0 0 FINDINGS Comparison: 10/11/22 Slight increase in velocity right ICA and plaque. No change in velocity left ICA. Diffuse carotid plaque. Antegrade vertebral arteries. CONCLUSIONS Right ICA stenosis 50-69%. Mild progression of stenosis since the prior exam. Left ICA stenosis 50-69%. No change. Dr. Armida Levy DO (Electronically Signed) Final Date: 21 March 2023 14:31 S
== END 2023-03-21 13:25 | disposition home or self-care (01) ==
LOC: RAD 13:27
PROVIDERS: PCP Registered Nurse; Visit Provider Thoracic Surgery (Cardiothoracic Vascular Surgery)
DX: I65.23 Occlusion and stenosis of bilateral carotid arteries (principal)
CPT/HCPCS: 93880

== ENCOUNTER → 2023-04-19 10:30 | Outpatient (BNVA) | payer MEDICARE, SELFPAY | PROVIDERS: PCP Registered Nurse; Visit Provider Thoracic Surgery (Cardiothoracic Vascular Surgery) | DX: I65.23 Occlusion and stenosis of bilateral carotid arteries (principal); R91.1 Solitary pulmonary nodule; Z87.891 Personal history of nicotine dependence | CPT/HCPCS: 99213 ==

== ENCOUNTER → 2023-08-20 12:33 | Outpatient (BNVA) | payer MEDICARE, SELFPAY | PROVIDERS: PCP Registered Nurse; Visit Provider Internal Medicine | DX: I11.0 Hypertensive heart disease with heart failure (principal); I50.30 Unspecified diastolic (congestive) heart failure; I48.20 Chronic atrial fibrillation, unspecified; E78.5 Hyperlipidemia, unspecified; K21.9 Gastro-esophageal reflux disease without esophagitis; E11.9 Type 2 diabetes mellitus without complications; Z79.4 Long term (current) use of insulin; J44.9 Chronic obstructive pulmonary disease, unspecified; Z87.891 Personal history of nicotine dependence | CPT/HCPCS: 99214 ==

== ENCOUNTER → 2023-09-27 11:19 | Outpatient (BNVA) | payer MEDICARE, SELFPAY | PROVIDERS: PCP Registered Nurse; Visit Provider Registered Nurse | DX: E11.9 Type 2 diabetes mellitus without complications (principal); Z79.4 Long term (current) use of insulin; Z91.81 History of falling; N39.0 Urinary tract infection, site not specified | CPT/HCPCS: 80048; 81000; 83036; 85025; 87086 ==

== ENCOUNTER 2023-10-15 10:48 | Outpatient (CLI) | payer MEDICARE, SELFPAY ==
--- NOTE | 2023-10-15 11:15 | USCV_ITS ---
Ana M New Age: 77 Gender: F : 1945 Exam Date: 10/15/2023 11:16 Ordering Phys: Neo Esposito MD (Andy) ([email or web address] [place]) Technologist: DA Exam Location: [facility] [place] Indication: Stenosis Risk Factors: Previous Vascular Surgery: Right Brachial BP: / Left Brachial BP: / Right Left Velocity (cm/s) Spectral Plaque Velocity (cm/s) Spectral Plaque Syst/Diast Broadening Syst/Diast Broadening 46.30/ 12.10 Prox CCA 52.60 / 9.70 58.60/ 14.50 Mid CCA 59.30 / 14.40 63.40/ 12.80 Distal CCA 60.50 / 18.10 118.80/26.30 Prox ICA 90.00 / 15.40 113.00/30.80 Mid ICA 114.80/ 19.90 127.00/31.20 Distal ICA 97.10 / 18.60 97.00 ECA 110.80 2.00 ICA/CCA 1.90 Antegrade Vertebral Antegrade 51.00/ 14.10 cm/s 57.80/ 8.30 cm/s Tri Subclavian 164.2 44.10 0 FINDINGS Comparison:. 03/21/23 Velocities and ratio have slightly decrease since the prior exam. Diffuse bilateral scattered calcified plaque and intimal thickening throughout the common carotid arteries and extending through the bifurcation. Antegrade vertebral arteries. CONCLUSIONS Bilateral ICA stenosis near 50%. The velocity has slightly decreased since the prior exam. Mild diffuse carotid atherosclerosis. Dr. Armida Levy DO (Electronically Signed) Final Date: 15 October 2023 12:55 S
== END 2023-10-15 10:49 | disposition home or self-care (01) ==
PROVIDERS: PCP Registered Nurse; Visit Provider Thoracic Surgery (Cardiothoracic Vascular Surgery)
DX: I65.23 Occlusion and stenosis of bilateral carotid arteries (principal)
CPT/HCPCS: 93880

== ENCOUNTER → 2024-01-03 10:58 | Outpatient (BNVA) | payer MEDICARE, SELFPAY | PROVIDERS: PCP Registered Nurse; Visit Provider Registered Nurse | DX: N39.0 Urinary tract infection, site not specified (principal); E11.9 Type 2 diabetes mellitus without complications | CPT/HCPCS: 81000; 87086 ==

== ENCOUNTER → 2024-01-22 11:35 | Outpatient (BNVA) | payer MEDICARE, SELFPAY | PROVIDERS: PCP Registered Nurse; Visit Provider Registered Nurse | DX: N39.0 Urinary tract infection, site not specified (principal) | CPT/HCPCS: 81000; 87086 ==

== ENCOUNTER 2024-02-01 12:54 | Outpatient (CLI) | payer MEDICARE, SELFPAY ==
--- NOTE | 2024-02-01 13:30 | USCV_ITS ---
Ana M New Age: 78 Gender: F : 1945 Exam Date: 02/01/2024 13:59 Ordering Phys: Alejandro Will M.D ([email or web address]) Technologist: Grayson Obrien Exam Location: [facility] [place] Indication: chest pain BP: 120 / 60 HR: 61 Rhythm: Sinus Technical Quality: Adequate MEASUREMENTS (Male / Female) Normal Values 2D ECHO LV Diastolic Diameter PLAX 5.2 cm 4.2 - 5.9 / 3.9 - 5.3 cm IVS Diastolic Thickness 0.8 cm 0.6 - 1.0 / 0.6 - 0.9 cm IVS Systolic Thickness 0.9 cm LVPW Diastolic Thickness 1.5 cm 0.6 - 1.0 / 0.6 - 0.9 cm LVPW Systolic Thickness 2.1 cm LVOT Diameter 2.0 cm LV Ejection Fraction 2D Teich 61.0 % LV Ejection Fraction MOD 4C 64.7 % LV Ejection Fraction MOD 2C 75.6 % LV Ejection Fraction 2C AL 76.5 % LA Diameter 4.2 cm RA Systolic Volume 4C AL 38.9 ml RA Systolic Volume 4C MOD 38.9 ml LA Sys Volume AL 78.7 cm cubed LA Sys Volume Index AL 41.3 cm cubed/m squared Aorta at Sinotubular Diameter 2.0 cm IVC Diameter 1.8 cm M-MODE LA Ao Ratio MM 2.6 AV Cusp Separation MM 1.4 cm DOPPLER AV Peak Velocity 162.7 cm/s LVOT Peak Velocity 124.0 cm/s AV Area Cont Eq vti 2.2 cm squared AV Area Cont Eq pk 2.5 cm squared MV Peak Velocity 164.0 cm/s MV Area PHT 6.5 cm squared Mitral E to A Ratio 1.3 TV Peak Velocity 417.5 cm/s TR Peak Velocity 570.0 cm/s TR Peak Gradient 130.0 mmHg TR Mean Velocity 413.0 cm/s TR Mean Gradient 75.0 mmHg TR Velocity Time Integral 170.7 cm PV Peak Velocity 118.3 cm/s RV Ejection Time 0.3 s FINDINGS Left Ventricle Normal left ventricular size, systolic function and wall thickness, with no regional wall motion abnormalities. Left ventricular ejection fraction is estimated at 55 %. Grade III/IV diastolic dysfunction (restrictive filling pattern), severely elevated filling pressures. Right Ventricle The right ventricle is normal in size and function. Right Atrium The right atrium is normal in size. Left Atrium Moderately increased left atrial size. Mitral Valve Moderately thickened mitral valve. Moderate mitral annular calcification. No mitral valve stenosis. Moderate mitral valve regurgitation. Aortic Valve Severe aortic valve calcification. Mild aortic valve stenosis, mean gradient 4.8 mmHg, LEATHA 2.2 cm squared. Trace aortic valve regurgitation. Tricuspid Valve Structurally normal tricuspid valve without significant stenosis or regurgitation. Pulmonary artery systolic pressure is normal. Pulmonic Valve Structurally normal pulmonic valve without significant stenosis. There is no pulmonic regurgitation. Pericardium Normal pericardium without effusion. Aorta Normal ascending aorta dimension. IVC The inferior vena cava appears normal. CONCLUSIONS Normal left ventricular size, systolic function and wall thickness, with no regional wall motion abnormalities. Left ventricular ejection fraction is estimated at 55 %. Grade III/IV diastolic dysfunction (restrictive filling pattern), severely elevated filling pressures. Severe aortic valve calcification. Mild aortic valve stenosis, mean gradient 4.8 mmHg, LEATHA 2.2 cm squared. Trace aortic valve regurgitation. Moderately thickened mitral valve. Moderate mitral annular calcification. No mitral valve stenosis. Moderate mitral valve regurgitation. There is no pericardial effusion. Right atrial pressure is around 5 mm of mercury. Viet Basurto MD (Electronically Signed) Final Date: 01 February 2024 21:40 S
== END 2024-02-01 12:55 | disposition home or self-care (01) ==
LOC: RAD 12:55
PROVIDERS: PCP Registered Nurse; Visit Provider Internal Medicine
DX: I48.20 Chronic atrial fibrillation, unspecified (principal); I50.30 Unspecified diastolic (congestive) heart failure; I34.0 Nonrheumatic mitral (valve) insufficiency; I34.89 Other nonrheumatic mitral valve disorders; I70.0 Atherosclerosis of aorta; R07.9 Chest pain, unspecified
CPT/HCPCS: 93306

== ENCOUNTER → 2024-02-07 10:49 | Outpatient (BNVA) | payer MEDICARE, SELFPAY | PROVIDERS: PCP Registered Nurse; Visit Provider Registered Nurse | DX: E11.9 Type 2 diabetes mellitus without complications (principal); Z79.4 Long term (current) use of insulin | CPT/HCPCS: 80053; 83036 ==

== ENCOUNTER 2024-02-12 14:14 | Outpatient (CLI) | payer MEDICARE, SELFPAY ==
--- NOTE | 2024-02-12 14:30 | XR_ITS ---
WS: [id number] DEXA (DUAL ENERGY X-RAY ABSORPTIOMETRY) Bone mineral density was performed using a [employer] machine. HISTORY: M81.0 - Age-related osteoporosis without current patholog... COMPARISON: None available. Lumbar spine BMD (L1-L4): 1.471 g/cm2 T score: 2.4 Z score: 3.8 Total hip BMD: Left: 0.936 g/cm2. T score: -0.6 Z score: 1.0 Right: 0.925 g/cm2. T score: -0.7 Z score: 0.9 10 year probability of a major osteoporotic fracture is 14.5%. XR/XR DEXA axial skeleton* 59071 IMPRESSION: NORMAL BONE MINERAL DENSITY based upon the WHO classification for females.
== END 2024-02-12 14:15 | disposition home or self-care (01) ==
LOC: RAD 14:14
PROVIDERS: PCP Registered Nurse; Visit Provider Registered Nurse
DX: Z13.820 Encounter for screening for osteoporosis (principal); M81.0 Age-related osteoporosis without current pathological fracture
CPT/HCPCS: 77080

== ENCOUNTER → 2024-02-25 09:54 | Outpatient (BNVA) | payer MEDICARE, SELFPAY | PROVIDERS: PCP Registered Nurse; Visit Provider Nurse Practitioner Family | DX: I25.118 Atherosclerotic heart disease of native coronary artery with other forms of angina pectoris (principal); R06.09 Other forms of dyspnea; I50.32 Chronic diastolic (congestive) heart failure; I48.20 Chronic atrial fibrillation, unspecified; Z87.891 Personal history of nicotine dependence | CPT/HCPCS: 99214 ==

== ENCOUNTER 2024-03-12 09:11 | Outpatient (CLI) | payer MEDICARE, SELFPAY ==
[2024-03-12 09:38] VITALS: BMI 28.1
--- NOTE | 2024-03-12 09:39 | ECG_ITS ---
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 Interpretive Statements LEXISCAN SESTAMIBI STRESS TEST Procedure: At the baseline, the blood pressure was 133/62 mmHg with a heart rate of 94 bpm. The electrocardiogram showed atrial fibrillation , normal axis with normal ST and T's. The Lexiscan was infused over a period of 20 seconds. A total of 0.4 mg of Lexiscan was infused. The stress phase was continued for a total of 5 minutes. Heart rate was at the end of stress phase was 92 bpm and a blood pressure of 97/48 mmHg. The EKG at the peak infusion revealed atrial fibrillation with no significant ST-T wave changes. Sestamibi was injected 20 seconds after the Lexiscan infusion. Blood pressure at the end of recovery phase was 106/46 mmHg with a heart rate of 84 bpm. Conclusion: 1. Normal EKG response to Lexiscan infusion 2. No Lexiscan induced chest pain or cardiac arrhythmia. 3. Normal blood pressure and heart rate response. 4. Sestamibi/sestamibi perfusion scan pending; see separate report. Electronically Signed On 03-16-2024 19:21:28 [employer]LE[employer]ICATION[employer] SALES REPRESENTATIVE by Alejandro Will M.D. [email or web address]
--- NOTE | 2024-03-12 09:40 | NMCV_ITS ---
NM stewart perf SPECT r/s* [id number] Ana M New Age: 78 Gender: F : 1945 Exam Date: 03/12/2024 10:30 Ordering Phys: Yanique Hines Technologist: LUIS ANTONIO Stevenson Exam Location: [facility] Indications: CP STRESS TEST Please see separate stress test report in [facility] for full findings IMAGE PROTOCOL Rest/Stress 1 Lexiscan Day Radiopharmaceutical Dose (mCi) Administration Site Administered by Rest: Tc-99m 10.3 IV Antionette Maribell, FIREFIGHTER TYPE ONE Sestamibi Stress:Tc-99m 30 IV Antionette Maribell, FIREFIGHTER TYPE ONE Sestamibi Rest: 12-Mar-2024 60 Discovery 630 Stress: 12-Mar-2024 30 Discovery 630 0.4mg Lexiscan. Supine position only as patient was unable to lay prone. SPECT RESULTS Technical Quality: Good Raw Data Analysis: Normal Image Corrections: No attenuation or motion correction applied Summed Stress Score: 3 Summed Rest Score: 10 Summed Difference Score: 0 PERFUSION FINDINGS There is a small to medium sized area of fixed perfusion defect seen in inferior and inferolateral hylton. This is consistent with small to medium sized area of prior infarct seen in the inferior and inferolateral hylton. No evidence of ischemia. FUNCTIONAL RESULTS (calculated via Gated SPECT) Stress Image LV EF (%): 80 Stress EDV (mL):90 TID: 0.98 Stress ESV (mL):18 FUNCTIONAL FINDINGS: There is normal left ventricular systolic function. IMPRESSIONS 1. Abnormal myocardial perfusion imaging with small to medium sized area of prior infarct in inferior and inferolateral hylton with no evidence of ischemia. 2. LV systolic function is normal Alejandro Will MD (Electronically Signed) Final Date: 13 March 2024 10:33 S
[2024-03-12] MEDS: regadenoson 0.4 Mg/5 ml Syringe IVP (10:59)
[2024-03-12 11:19] VITALS: BP 106/46; PULSE 88
[2024-03-12 11:25] LABS: Glucose Point of Care 123 mg/dL (70-110)
== END 2024-03-12 09:12 | disposition home or self-care (01) ==
LOC: CDL 09:13
PROVIDERS: PCP Registered Nurse; Visit Provider Nurse Practitioner Family
DX: R06.09 Other forms of dyspnea (principal); I25.118 Atherosclerotic heart disease of native coronary artery with other forms of angina pectoris; R94.39 Abnormal result of other cardiovascular function study
CPT/HCPCS: 36415; 36416; 78452; 82962; 93017; 96374; A9500; J2785

== ENCOUNTER → 2024-04-01 11:12 | Outpatient (BNVA) | payer MEDICARE, SELFPAY | PROVIDERS: PCP Registered Nurse; Visit Provider Registered Nurse | DX: R10.9 Unspecified abdominal pain (principal) | CPT/HCPCS: 81000; 87086 ==

== ENCOUNTER → 2024-05-08 11:28 | Outpatient (BNVA) | payer MEDICARE, SELFPAY | PROVIDERS: PCP Registered Nurse; Visit Provider Registered Nurse | DX: E11.9 Type 2 diabetes mellitus without complications (principal); N39.0 Urinary tract infection, site not specified | CPT/HCPCS: 80048; 83036; 87086 ==

== ENCOUNTER → 2024-05-26 10:41 | Outpatient (BNVA) | payer MEDICARE, SELFPAY | PROVIDERS: PCP Registered Nurse; Visit Provider Registered Nurse | DX: J11.1 Influenza due to unidentified influenza virus with other respiratory manifestations (principal) | CPT/HCPCS: 87400 ==

== ENCOUNTER → 2024-08-05 10:27 | Outpatient (BNVA) | payer MEDICARE, SELFPAY | PROVIDERS: PCP Registered Nurse; Visit Provider Registered Nurse | DX: E11.9 Type 2 diabetes mellitus without complications (principal) | CPT/HCPCS: 81000; 83036; 87086 ==

== ENCOUNTER → 2024-08-29 10:31 | Outpatient (BNVA) | payer MEDICARE, SELFPAY | PROVIDERS: PCP Registered Nurse; Visit Provider Registered Nurse | DX: N39.0 Urinary tract infection, site not specified (principal) | CPT/HCPCS: 81000 ==

== ENCOUNTER 2024-09-03 09:56 | Outpatient (CLI) | payer MEDICARE, SELFPAY ==
--- NOTE | 2024-09-03 10:02 | XRR_ITS ---
PROCEDURE INFORMATION: Exam: XR Left Hand Exam date and time: 09/03/2024 10:40 AM Age: 78 years old Clinical indication: Injury or trauma; Fall; Blunt trauma (contusions or hematomas); Hand; Left; Injury details: Tripped and fell and jammed thumb against the door. ; Additional info: M79.642 - pain in left hand TECHNIQUE: Imaging protocol: Radiologic exam of the left hand. Views: 3 or more views. COMPARISON: No relevant prior studies available. FINDINGS: Bones/joints: Moderate osteoarthritis is seen. Negative for acute bone abnormalities. Soft tissues: Soft tissue edema is seen in the distal aspect of the thumb XR/XR hand LT min 3V* [id number] IMPRESSION: 1. No acute bone abnormality 2. Soft tissue edema in the distal thumb 3. Osteoarthritis
--- NOTE | 2024-09-03 10:35 | XRR_ITS ---
PROCEDURE INFORMATION: Exam: XR Right Shoulder Exam date and time: 09/03/2024 10:40 AM Age: 78 years old Clinical indication: Pain; Shoulder; Right; Additional info: M77.8 - other enthesopathies, not elsewhere classified TECHNIQUE: Imaging protocol: Radiologic exam of the right shoulder. Views: 2 or more views. COMPARISON: CT chest wo con [id number] 02/19/2023 12:12 PM FINDINGS: Bones/joints: Severe osteoarthritis is seen with joint space narrowing and sclerosis in the glenohumeral joint. Bone spurs are present on the inferior aspect of the humeral head. There is remodeling seen in the glenoid. Narrowing of the acromioclavicular joint is present. No acute fracture or dislocations are noted. Soft tissues: Normal. XR/XR shoulder RT min 2V* [id number] IMPRESSION: 1. No acute bone abnormality. 2. Severe osteoarthritis.
== END 2024-09-03 09:57 | disposition home or self-care (01) ==
PROVIDERS: PCP Registered Nurse; Visit Provider Registered Nurse
DX: M19.042 Primary osteoarthritis, left hand (principal); M77.8 Other enthesopathies, not elsewhere classified; M19.011 Primary osteoarthritis, right shoulder; W19.XXXA Unspecified fall, initial encounter
CPT/HCPCS: 73030; 73130

== ENCOUNTER 2024-09-10 10:18 | Outpatient (CLI) | payer MEDICARE, SELFPAY ==
--- NOTE | 2024-09-10 11:00 | MR_ITS ---
WS: [id number] MRI HEAD WITHOUT CONTRAST TECHNIQUE: Sagittal T1, T2 axial, T2 axial FLAIR, axial and coronal T1 images, axial susceptibility weighted imaging, axial diffusion weighted images, and coronal T2 images were obtained. CLINICAL INFORMATION: G45.9 - Transient cerebral ischemic attack, unspecified COMPARISON: MRI 2021 FINDINGS: No evidence of restricted diffusion to suggest acute ischemia. Mild small vessel changes with moderate parenchymal volume loss. Small vessel changes in the guillermo. 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 Normal vascular flow voids at the skull base. No extra-axial fluid collections. Paranasal sinuses are well aerated. Mastoid air cells are well aerated. Normal optic chiasm and pituitary infundibulum. Mild symmetric atrophy temporal lobes and hippocampal formations. Hemosiderin bilaterally in the temporal lobes and extending into the sylvian fissures. Hemosiderin in the cerebellar folia bilaterally. 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 Hemosiderin extending along the interhemispheric sulcus. Recommend neurology consultation. MR/MR head wo con* [id number] IMPRESSION: 1. No evidence of restricted diffusion to suggest acute ischemia. 2. Mild small vessel changes with moderate parenchymal volume loss. Small vess el changes in the guillermo. 3. Tiny chronic lacunar infarct RIGHT caudate and RIGHT thalamus. 4. Hemosiderin seen in the bilateral temporal lobes and insula extending into the sylvian fissures and cerebellar folia. This can be seen with superficial si derosis. Recommend neurology consultation. 5. No other acute findings.
== END 2024-09-10 10:19 | disposition home or self-care (01) ==
PROVIDERS: PCP Registered Nurse; Visit Provider Registered Nurse
DX: G45.9 Transient cerebral ischemic attack, unspecified (principal); R93.0 Abnormal findings on diagnostic imaging of skull and head, not elsewhere classified; G31.89 Other specified degenerative diseases of nervous system
CPT/HCPCS: 70551

== ENCOUNTER → 2024-11-13 15:03 | Outpatient (BNVA) | payer MEDICARE, SELFPAY | PROVIDERS: PCP Registered Nurse; Visit Provider Internal Medicine | DX: I10 Essential (primary) hypertension (principal); R07.89 Other chest pain | CPT/HCPCS: 99214 ==

== ENCOUNTER → 2024-11-24 09:09 | Outpatient (BNVA) | payer MEDICARE, SELFPAY | PROVIDERS: PCP Registered Nurse; Visit Provider Registered Nurse | DX: E11.9 Type 2 diabetes mellitus without complications (principal); N39.0 Urinary tract infection, site not specified | CPT/HCPCS: 81000; 83036; 87086 ==

== ENCOUNTER 2024-12-12 08:22 | Outpatient (CLI) | payer MEDICARE, SELFPAY ==
[2024-12-12 08:57] VITALS: BMI 25.2
--- NOTE | 2024-12-12 08:59 | NMCV_ITS ---
NM stewart perf SPECT r/s* [id number] Ana M New Age: 79 Gender: F : 1945 Exam Date: 12/12/2024 09:50 Ordering Phys: Alejandro Will M.D ([email or web address]) Technologist: LUIS ANTONIO Sandoval Exam Location: [facility] Indications: cp STRESS TEST [facility] IMAGE PROTOCOL Rest/Stress 1 Lexiscan Day Radiopharmaceutical Dose (mCi) Administration Site Administered by Rest: Tc-99m 10.6 IV Antionette Reyna, WARP TYING MACHINE KNOTTER Sestamibi Stress:Tc-99m 32.6 IV Antionette Greenegle, WARP TYING MACHINE KNOTTER Sestamibi Rest: 12/12/2024 60 Discovery 630 Stress: 12/12/2024 30 Discovery 630 0.4mg Lexiscan. Supine position only as patient was unable to lay prone. SPECT RESULTS Technical Quality: Good Raw Data Analysis: Normal Image Corrections: No attenuation or motion correction applied Summed Stress Score: 0 Summed Rest Score: 0 Summed Difference Score: 0 PERFUSION FINDINGS SPECT images demonstrate homogeneous tracer distribution throughout the myocardium. FUNCTIONAL RESULTS (calculated via Gated SPECT) Stress Image LV EF (%): 64 Stress EDV (mL):70 TID: 0.94 Stress ESV (mL):25 FUNCTIONAL FINDINGS: There is normal left ventricular systolic function. EF 64%. IMPRESSIONS Myocardial perfusion imaging is normal. Normal left ventricular systolic function and cavity size, EF 64%. Rishi Dejesus MD, FACC (Electronically Signed) Final Date: 12 December 2024 18:55 S
--- NOTE | 2024-12-12 08:59 | ECG_ITS ---
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 Interpretive Statements Procedure: A total of 0.4 mg of Lexiscan was infused over 20 seconds. The stress phase was continued for a total of 5 minutes. Sestamibi was injected 20 seconds after the Lexiscan infusion. Vital signs and ECG findings: Resting EKG showed normal sinus rhythm with first-degree AV block and possible anterior myocardial infarction. There were no ST-T wave abnormalities with stress. The resting blood pressure was 135/72 with a heart rate of 98. At peak stress the patient's blood pressure was 94/60 and response to the Lexiscan with a heart rate of 101 bpm. In recovery the patient's blood pressure was 97/57 with a heart rate of 98 bpm. Conclusion: 1. Normal EKG response to Lexiscan infusion 2. No Lexiscan induced chest pain or cardiac arrhythmia. 3. Hypotensive blood pressure response to Lexiscan. 4. Nuclear myocardial perfusion scan pending; see separate report. Electronically Signed On 12-12-2024 14:58:04 CDT by Rishi Dejesus M.D. [email or web address]
[2024-12-12 10:43] VITALS: BP 97/57; PULSE 99
--- NOTE | 2024-12-12 15:00 | USCV_ITS ---
Ana M New Age: 79 Gender: F : 1945 Exam Date: 12/12/2024 09:28 Ordering Phys: Alejandro Will M.D ([email or web address]) Technologist: [place] [facility] [place]: cp BP: 110 / 70 HR: 93 Rhythm: Sinus Technical Quality: Adequate MEASUREMENTS (Male / Female) Normal Values 2D ECHO LV Diastolic Diameter PLAX 4.3 cm 4.2 - 5.9 / 3.9 - 5.3 cm IVS Diastolic Thickness 1.0 cm 0.6 - 1.0 / 0.6 - 0.9 cm IVS Systolic Thickness 1.4 cm LVPW Diastolic Thickness 1.5 cm 0.6 - 1.0 / 0.6 - 0.9 cm LVPW Systolic Thickness 1.8 cm LVOT Diameter 2.0 cm LV Ejection Fraction 2D Teich 63.2 % LV Ejection Fraction MOD 4C 53.4 % LV Ejection Fraction MOD 2C 64.9 % LV Ejection Fraction 2C AL 65.8 % LA Diameter 4.8 cm RA Systolic Volume 4C AL 42.1 ml RA Systolic Volume 4C MOD 43.0 ml LA Sys Volume AL 99.4 cm cubed LA Sys Volume Index AL 56.9 cm cubed/m squared Aorta at Sinotubular Diameter 3.0 cm IVC Diameter 2.4 cm M-MODE LA Ao Ratio MM 1.5 AV Cusp Separation MM 2.1 cm DOPPLER AV Peak Velocity 144.0 cm/s LVOT Peak Velocity 87.0 cm/s AV Area Cont Eq vti 1.9 cm squared AV Area Cont Eq pk 2.0 cm squared MV Peak Velocity 171.0 cm/s MV Area PHT 3.4 cm squared Mitral E to A Ratio 1.1 TR Peak Velocity 310.0 cm/s TR Peak Gradient 38.4 mmHg TV Peak E Velocity 104.0 cm/s PV Peak Velocity 98.0 cm/s FINDINGS Left Ventricle Normal left ventricular size and systolic function, EF of 55- 60%. No regional wall motion abnormalities. Right Ventricle Normal right ventricular size and systolic function. Right Atrium Normal right atrial size. Left Atrium Severely dilated Mitral Valve Thickened mitral valve. Mild to moderate mitral regurgitation Aortic Valve Thickened aortic valve. No significant stenosis noted. Tricuspid Valve Insufficient TR jet to evaluate RVSP Pulmonic Valve Not well visualized Pericardium Normal Aorta Normal in size IVC Grossly appears dilated CONCLUSIONS LV systolic function is normal with EF of 55-60%. Severely dilated left atrium Mild to moderate mitral regurgitation IVC appears grossly dilated Alejandro Will MD (Electronically Signed) Final Date: 19 December 2024 13:40 S
== END 2024-12-12 08:23 | disposition home or self-care (01) ==
LOC: RAD 08:27 → CDL 08:57
PROVIDERS: PCP Registered Nurse; Visit Provider Internal Medicine
DX: R07.9 Chest pain, unspecified (principal); R06.02 Shortness of breath; I51.7 Cardiomegaly; I34.0 Nonrheumatic mitral (valve) insufficiency; I44.0 Atrioventricular block, first degree
CPT/HCPCS: 36415; 78452; 93017; 93306; 96374; A9500; J2785

== ENCOUNTER → 2024-12-16 13:31 | Outpatient (BNVA) | payer MEDICARE, SELFPAY | PROVIDERS: PCP Registered Nurse; Visit Provider Podiatrist Foot & Ankle Surgery | DX: E11.40 Type 2 diabetes mellitus with diabetic neuropathy, unspecified (principal); I73.9 Peripheral vascular disease, unspecified; M21.371 Foot drop, right foot; Z79.4 Long term (current) use of insulin | CPT/HCPCS: 99203 ==

== ENCOUNTER → 2024-12-30 13:34 | Outpatient (BNVA) | payer MEDICARE, SELFPAY | PROVIDERS: PCP Registered Nurse; Visit Provider Registered Nurse | DX: I95.9 Hypotension, unspecified (principal) | CPT/HCPCS: 80048 ==

== ENCOUNTER → 2025-02-05 10:54 | Outpatient (BNVA) | payer MEDICARE, SELFPAY | PROVIDERS: PCP Registered Nurse; Visit Provider Registered Nurse | DX: N39.0 Urinary tract infection, site not specified (principal) | CPT/HCPCS: 81000; 87086 ==

== ENCOUNTER → 2025-02-10 10:26 | Outpatient (BNVA) | payer MEDICARE, SELFPAY | PROVIDERS: PCP Registered Nurse; Visit Provider Registered Nurse | DX: I73.9 Peripheral vascular disease, unspecified (principal); E78.5 Hyperlipidemia, unspecified | CPT/HCPCS: 80061; 85025 ==

== ENCOUNTER 2025-02-12 11:06 | Outpatient (CLI) | payer MEDICARE, SELFPAY ==
--- NOTE | 2025-02-12 11:20 | MM_ITS ---
WS: [id number] BILATERAL SCREENING DIGITAL TOMOSYNTHESIS MAMMOGRAM WITH CAD HISTORY: Z12.39 - Encounter for other screening for malignant neop... COMPARISON: None available. Bilateral CC and MLO views with tomosynthesis and synthetic mammography submitted. Computer aided detection analyzed. Breast composition: There are scattered areas of fibroglandular density. No suspicious masses, microcalcifications or architectural distortion. Bilateral breast arterial calcifications. Scattered calcifications in each breast. MM/MM [facility] tomosynthesis [id number] IMPRESSION: BI-RADS: 2 - Benign. FOLLOW UP: 1 Year Follow-up
== END 2025-02-12 11:07 | disposition home or self-care (01) ==
LOC: MOBLMAM 11:08
PROVIDERS: PCP Registered Nurse; Visit Provider Registered Nurse
DX: Z12.31 Encounter for screening mammogram for malignant neoplasm of breast (principal); R92.323 Mammographic fibroglandular density, bilateral breasts; R92.1 Mammographic calcification found on diagnostic imaging of breast
CPT/HCPCS: 77063; 77067

== ENCOUNTER → 2025-02-24 10:05 | Outpatient (BNVA) | payer MEDICARE, SELFPAY | PROVIDERS: PCP Registered Nurse; Visit Provider Registered Nurse | DX: E11.42 Type 2 diabetes mellitus with diabetic polyneuropathy (principal); E11.9 Type 2 diabetes mellitus without complications; Z79.4 Long term (current) use of insulin | CPT/HCPCS: 83036 ==

== ENCOUNTER → 2025-03-17 14:12 | Outpatient (BNVA) | payer MEDICARE, SELFPAY | PROVIDERS: PCP Registered Nurse; Visit Provider Podiatrist Foot & Ankle Surgery | DX: E11.40 Type 2 diabetes mellitus with diabetic neuropathy, unspecified (principal); L60.3 Nail dystrophy; I73.9 Peripheral vascular disease, unspecified; M21.371 Foot drop, right foot; Z79.4 Long term (current) use of insulin | CPT/HCPCS: 11721 ==